=== PATIENT | male | born 1940 | race Caucasian/White ===

== ENCOUNTER → 2016-08-02 | Outpatient (CLI) | payer MEDICARE, BC ==
[~2016-08-02] MED LIST: AMLO10TA2 PO; ASPI-110 PO; ASPI81TA82 PO; BENEPOW5 PO; CETI10 PO; CETI1TAB18 PO; CHOL1TAB42 PO; CRANCAP10 PO; DONE5TAB14 PO; DONE5TAB7 PO; HYDR-2768 PO; HYDR25TA5 PO; IPRA0.03; IPRA0.03 NASAL; LEVO100T5 PO; LEVO125T3 PO; LEVO125T4 PO; LOSA50TA PO; MAGN500T4 PO; METF-324 PO; METF1000 PO; MIDO5TAB PO; MULT1TAB PO; MULTTAB83 PO; NAPR220T95 PO; NORV10TA PO; OXYC1TAB36 PO; PATA0.6S; PYRI100T PO; RESTCAP PO; ROSU10 PO; VITA100T2 PO; VITA200017 PO; VITA500T49 PO
[2016-08-02 13:42] LABS: AUTOMATED NEUTROPHIL # 4.3 TH/MM3 (1.8-7.7); BASOPHIL # 0.1 TH/MM3 (0-0.2); EOSINOPHIL # 0.1 TH/MM3 (0-0.4); HEMATOCRIT 36.5 % (39.0-51.0); HEMO FLAGS DIFF FINAL; LYMPH % 17.3 % (9.0-44.0); LYMPHOCYTE # 1.1 TH/MM3 (1.0-4.8); MEAN CORPUSCULAR HEMOGLOBIN 32.2 PG (27.0-34.0); MEAN CORPUSCULAR HGB CONC 33.5 % (32.0-36.0); MONO % 9.9 % (0.0-8.0); NEUT % 69.8 % (16.0-70.0); PLATELET COUNT 208 TH/MM3 (150-450); RED CELL DISTRIBUTION WIDTH 14.2 % (11.6-17.2); WHITE BLOOD COUNT 6.1 TH/MM3 (4.0-11.0)
[2016-08-02 14:06] LABS: ALKALINE PHOSPHATASE 56 U/L (45-117); ALT (GPT) 21 U/L (12-78); ANION GAP 11 MEQ/L (5-15); AST (GOT) 16 U/L (15-37); BICARBONATE 26.8 MEQ/L (21.0-32.0); BLOOD UREA NITROGEN 14 MG/DL (7-18); CHLORIDE 104 MEQ/L (98-107); GLOMERULAR FILTRATION RATE 59 ML/MIN (>89); GLUCOSE,FASTING 118 MG/DL (74-99); INDIRECT BILIRUBIN 0.4 MG/DL (0.0-0.8); LDL CHOLESTEROL 31 MG/DL (0-99); SODIUM (NA) 142 MEQ/L (136-145); TOTAL BILIRUBIN ADULT 0.6 MG/DL (0.2-1.0)
[2016-08-02 14:07] LABS: MICRO ALBUMIN RANDOM URINE RAW 15.1 MG/L (0.0-30.0)
[2016-08-02 16:32] LABS: HEMOGLOBIN A1a 1.2 %; HEMOGLOBIN A1b 1.7 %; HEMOGLOBIN Ao 83.8 %; HEMOGLOBIN LA1C 2.3 %
== END ==
LOC: PLAB 08:48
PROVIDERS: ATTEND Family Medicine
DX: I10 Essential (primary) hypertension (principal); E78.5 Hyperlipidemia, unspecified; E11.9 Type 2 diabetes mellitus without complications; R53.83 Other fatigue
CPT/HCPCS: 36415; 80048; 80061; 80076; 82043; 83036; 84443; 85025

== ENCOUNTER → 2016-08-08 | Outpatient (CLI) | payer MEDICARE, BC | LOC: PLAB 08:56 | PROVIDERS: ATTEND Family Medicine | DX: E03.9 Hypothyroidism, unspecified (principal) | CPT/HCPCS: 36415; 84443 ==

== ENCOUNTER → 2016-09-25 | Outpatient (CLI) | payer MEDICARE, BC ==
[2016-09-25 13:10] LABS: HEMATOCRIT 36.7 % (39.0-51.0); MEAN CELL VOLUME 94.4 FL (80.0-100.0); MEAN CORPUSCULAR HGB CONC 33.9 % (32.0-36.0); PLATELET COUNT 236 TH/MM3 (150-450); RED BLOOD COUNT 3.89 MIL/MM3 (4.50-5.90); RED CELL DISTRIBUTION WIDTH 13.4 % (11.6-17.2); REVIEW FLAG FINAL; WHITE BLOOD COUNT 6.2 TH/MM3 (4.0-11.0)
[2016-09-25 13:39] LABS: ALKALINE PHOSPHATASE 53 U/L (45-117); ALT (GPT) 24 U/L (12-78); ANION GAP 8 MEQ/L (5-15); AST (GOT) 25 U/L (15-37); BICARBONATE 30.8 MEQ/L (21.0-32.0); BLOOD UREA NITROGEN 20 MG/DL (7-18); CHLORIDE 103 MEQ/L (98-107); FREE T4 1.28 NG/DL (0.76-1.46); GLOMERULAR FILTRATION RATE 51 ML/MIN (>89); GLUCOSE,FASTING 111 MG/DL (74-99); POTASSIUM 3.8 MEQ/L (3.5-5.1); SODIUM (NA) 142 MEQ/L (136-145); TOTAL BILIRUBIN ADULT 0.6 MG/DL (0.2-1.0); TOTAL PROTEIN SPE 7.3 GM/DL (6.0-7.6)
[2016-09-25 13:40] LABS: WESTERGREN SEDIMENTATION RATE 8 mm/hr (0-20)
[2016-09-27 17:27] LABS: ALBUMIN SPE 4.93 GM/DL (3.50-5.00); ALPHA 1 GLOBULIN 0.22 GM/DL (0.11-0.29); ALPHA 2 GLOBULIN 0.83 GM/DL (0.22-1.00); BETA GLOBULINS (SPE) 0.64 GM/DL (0.53-1.03)
== END ==
LOC: PLAB 08:33
PROVIDERS: ATTEND Orthopaedic Surgery Orthopaedic Trauma
DX: M81.8 Other osteoporosis without current pathological fracture (principal); E55.9 Vitamin D deficiency, unspecified; E21.4 Other specified disorders of parathyroid gland; E07.9 Disorder of thyroid, unspecified; E83.30 Disorder of phosphorus metabolism, unspecified; E83.50 Unspecified disorder of calcium metabolism
CPT/HCPCS: 36415; 80053; 82306; 83970; 84165; 84402; 84403; 84439; 85027; 85652

== ENCOUNTER 2016-10-28 13:31 | Inpatient (IN) | payer MEDICARE, BC ==
[~2016-10-28] VITALS: Ht 180.3 cm; Wt 105.0 kg
[~2016-10-28 13:31] MED LIST changes: -AMLO10TA2 PO; -ASPI-110 PO; -CETI1TAB18 PO; -CHOL1TAB42 PO; -DONE5TAB7 PO; -HYDR25TA5 PO; -IPRA0.03 NASAL; -LEVO100T5 PO; -LEVO125T4 PO; -MAGN500T4 PO; -METF1000 PO; -MIDO5TAB PO; -MULT1TAB PO; -OXYC1TAB36 PO; -PYRI100T PO; -VITA100T2 PO; -VITA500T49 PO
[2016-10-28 13:41] VITALS: BP 106/61; PULSE 89; RESP 20; TEMP 98.2; O2SAT 93
--- NOTE | 2016-10-28 13:52 | PD ---
HPI Chief Complaint: Hip Injury Time Seen by Provider: 13:49 Travel History International Travel<30 days: No Contact w/Intl Traveler<30days: No Traveled to known affect area: No History of Present Illness HPI 76-year-old male presents to the emergency department via EMS for evaluation of right hip injury after a trip and fall that occurred just prior to arrival. Patient states he is walking in his house when he tripped landing on his right hip. He did hit his head, but denies LOC. Patient denies taking any anticoagulants. He denies any neck pain or back pain. No chest pain. No abdominal pain. No nausea or vomiting. He does have history of right hip fracture in 2013 and underwent repair by Dr. Silva. He states that he has had hip pain since, but nothing like since his fall. Patient had 6 mg of morphine prior to arrival. He denies any other complaints at this time. PFSH Past Medical History Hx Anticoagulant Therapy: Yes (BABY ASA DAILY) Arthritis: Yes Asthma: Yes Autoimmune Disease: No Anxiety: No Depression: No Heart Rhythm Problems: No Cancer: No Cardiovascular Problems: Yes (CHOL) High Cholesterol: Yes Chest Pain: No Congestive Heart Failure: No COPD: No Cerebrovascular Accident: No Dementia: Yes Diabetes: Yes Endocrine: Yes GERD: Yes Genitourinary: Yes Hiatal Hernia: Yes Hypertension: Yes Kidney Stones: No Musculoskeletal: Yes Neurologic: Yes Psychiatric: No Reproductive: No Respiratory: Yes Migraines: No Renal Failure: No Seizures: No Sleep Apnea: No Thyroid Disease: Yes Ulcer: Yes (WHEN YOUNGER) Past Surgical History Abdominal Surgery: Yes (HERNIA, GALLBLADDER) Cardiac Surgery: No Cholecystectomy: Yes Endocrine Surgery: No Eye Surgery: Yes (BILATERAL CATARACT) Genitourinary Surgery: Yes (VASECTOMY) Joint Replacement: No Oral Surgery: Yes (CLEFT LIP AND PALATE/NOSE) Pacemaker: No Thoracic Surgery: No Tonsillectomy: Yes Social History Alcohol Use: Yes (1/2-1 cup liqor most days) Tobacco Use: No Substance Use: No Allergies-Medications (Allergen,Severity, Reaction): Coded Allergies: Lipitor (Verified Allergy, Unknown, 02/13/16) Advair (Verified Adverse Reaction, Unknown, 02/13/16) Reported Meds & Prescriptions Reported Meds & Active Scripts Active Reported Vitamin B12 (Cyanocobalamin) 500 Mcg Tab 500 Mcg PO DAILY Vitamin B-6 (Pyridoxine HCl) 100 Mg Tab 100 Mg PO DAILY Zyrtec Allergy Childrens (Cetirizine HCl) 10 Mg Tab 10 Mg PO DAILY Magnesium 500 Mg Tab 500 Mg PO DAILY Vitamin D-3 (Cholecalciferol) 2,000 Unit Tab 1 Tab PO DAILY Centrum Silver Adult 50+ (Multiple Vitamins W/ Minerals) 1 Tab Tab 1 Tab PO DAILY Aspirin 81 (Aspirin) 81 Mg Tabdr 81 Mg PO DAILY Metformin (Metformin HCl) 1,000 Mg Tab 1,000 Mg PO BIDPC With meals Levothyroxine (Levothyroxine Sodium) 125 Mcg Tab 125 Mcg PO DAILY Ipratropium Nasal 0.03% [place] 2 [place] NASAL DAILY Hydrochlorothiazide 25 Mg Tab 25 Mg PO DAILY Donepezil 5 Mg Tab 7.5 Mg PO HS Crestor (Rosuvastatin Calcium) 10 Mg Tab 10 Mg PO DAILY Amlodipine (Amlodipine Besylate) 10 Mg Tab 10 Mg PO DAILY Review of Systems Except as stated in HPI: all other systems reviewed are Neg Physical Exam Narrative GENERAL: Well-nourished, well-developed elderly male patient, afebrile. SKIN: Focused skin assessment warm/dry. HEAD: Normocephalic. Atraumatic. EYES: No scleral icterus. No injection or drainage. NECK: Supple, trachea midline. No JVD or lymphadenopathy. CARDIOVASCULAR: Regular rate and rhythm without murmurs, gallops, or rubs. Bilateral radial and pedal pulses 2+. RESPIRATORY: Breath sounds equal bilaterally. No accessory muscle use. Lungs sounds are clear to auscultation. GASTROINTESTINAL: Abdomen soft, non-tender, nondistended. MUSCULOSKELETAL: No cyanosis, or edema. BACK: Nontender without obvious deformity. No CVA tenderness. Data Data Last Documented VS Vital Signs Date Time Temp Pulse Resp B/P Pulse Ox O2 Delivery O2 Flow Rate FiO2 10/28/16 15:45 82 18 129/70 95 Room Air 10/28/16 13:46 2 10/28/16 13:[address] Brain W/O Iv Contrast(Rout) (10/28/16 ) Hip, Uni(Ap&Lat) W Ap Pelvis (10/28/16 ) Iv Access Insert/Monitor (10/28/16 13:47) Complete Blood Count With Diff (10/28/16 13:47) Comprehensive Metabolic Panel (10/28/16 13:47) Prothrombin Time / Inr (Pt) (10/28/16 13:47) Act Partial Throm Time (Ptt) (10/28/16 13:47) Sodium Chlor 0.9% 1000 Ml Inj (Ns 1000 M (10/28/16 15:15) Ct Hip W/O Contrast (10/28/16 ) Femur (Ap & Lat/2vws) (10/28/16 ) Admit Order (Ed Use Only) (10/28/16 17:13) Labs Laboratory Tests Test 10/28/16 13:55 White Blood Count 11.6 TH/MM3 Red Blood Count 3.49 MIL/MM3 Hemoglobin 11.2 GM/DL Hematocrit 33.2 % Mean Corpuscular Volume 95.0 FL Mean Corpuscular Hemoglobin 32.2 PG Mean Corpuscular Hemoglobin 33.9 % Concent Red Cell Distribution Width 13.2 % Platelet Count 207 TH/MM3 Mean Platelet Volume 8.3 FL Neutrophils (%) (Auto) 84.4 % Lymphocytes (%) (Auto) 6.5 % Monocytes (%) (Auto) 7.9 % Eosinophils (%) (Auto) 0.6 % Basophils (%) (Auto) 0.6 % Neutrophils # (Auto) 9.8 TH/MM3 Lymphocytes # (Auto) 0.8 TH/MM3 Monocytes # (Auto) 0.9 TH/MM3 Eosinophils # (Auto) 0.1 TH/MM3 Basophils # (Auto) 0.1 TH/MM3 CBC Comment DIFF FINAL Differential Comment Prothrombin Time 11.2 SEC Prothromb Time International 1.0 RATIO Ratio Activated Partial 26.1 SEC Thromboplast Time Sodium Level 137 MEQ/L Potassium Level 4.2 MEQ/L Chloride Level 100 MEQ/L Carbon Dioxide Level 28.8 MEQ/L Anion Gap 8 MEQ/L Blood Urea Nitrogen 28 MG/DL Creatinine 1.93 MG/DL Estimat Glomerular Filtration 34 ML/MIN Rate Random Glucose 164 MG/DL Calcium Level 8.8 MG/DL Total Bilirubin 0.7 MG/DL Aspartate Amino Transf 28 U/L (AST/SGOT) Alanine Aminotransferase 34 U/L (ALT/SGPT) Alkaline Phosphatase 58 U/L Total Protein 6.6 GM/DL Albumin 3.6 GM/DL MDM Medical Decision Making Medical Screen Exam Complete: Yes Emergency Medical Condition: Yes Medical Record Reviewed: Yes Interpretation(s) Last Impressions Hip and Pelvis X-Ray 10/28/16 0000 Signed Impressions: Service Date/Time: Friday, October 28, 2016 14:31 - CONCLUSION: Slight osteopenia. Viri Kaur MD Head CT 10/28/16 0000 Signed Impressions: Service Date/Time: Friday, October 28, 2016 14:22 - CONCLUSION: Slight atrophic and small vessel ischemic changes without any evidence for acute hemorrhage or mass effect. Viri Kaur MD x-ray femur - CONCLUSION: No definite fracture is seen for technique. CT right hip - FINDINGS: Total hip arthroplasty is seen on the right appears intact with hypertrophic changes surrounding the femoral component. There is osteopenia with hairline fractures of the left symphysis pubis, right anterior acetabulum, right inferior pubic ramus. CONCLUSION: Hairline fractures as above. Differential Diagnosis Hip fracture versus dislocation versus contusion versus closed head injury versus intracranial abnormality Narrative Course 76-year-old male presents to the emergency department via EMS for evaluation of right hip pain after he tripped and fell. He states he also did hit his head, but denies LOC. IV access established. CBC, CMP, PTT, PTT/INR ordered and pending. X-ray of the right hip with pelvis is ordered and pending. CT of the brain is ordered and pending. CBC shows leukocytosis 11.6, hemoglobin 11.2, hematocrit 33.2. CMP shows elevated BUN and creatinine at 28/1.93, glucose 164. Coags are unremarkable. X -ray of the right hip with pelvis shows slight osteopenia. CT of the brain shows slight atrophic and small vessel ischemic changes without any evidence for acute hemorrhage or mass effect. Patient is given normal saline liter IV bolus. The nurse attempted to walk the patient, but he was unable to bear weight on the right leg due to hip pain. X-ray of the right femur is added on as well CT of the right hip. X-ray right femur shows no definite fracture seen. CT of the hip shows osteopenia with hairline fractures of the left symphysis pubis, right anterior acetabulum, right inferior pubic ramus. Orthopedist neon sign erector is paged. I spoke to Dr. Villegas who states that this is a progressive weightbearing as tolerated, nonsurgical issue. He states that he will be painful for a couple of weeks. I discussed this with the patient. The patient will be tried to walk one more time. The patient is unable to even swinging his leg over the side of the bed, much less walk. [facility] is paged for admission. Dr. Christensen accepted admission. Diagnosis Primary Impression: Pelvis fracture, right Qualified Code: S32.9XXA - Pelvis fracture, right, closed, initial encounter Admitting Information Admitting Physician Requests: Observation Yoana Myrick Oct 28, 2016 13:52
[2016-10-28] MEDS ORDERED: METF1000 PO (13:57)
[2016-10-28] MEDS ORDERED: LEVO125T4 PO (13:57)
[2016-10-28] MEDS ORDERED: ASPI-110 PO (13:57)
[2016-10-28] MEDS ORDERED: DONE5TAB7 PO (13:57)
[2016-10-28] MEDS ORDERED: IPRA0.03 NASAL (13:57)
[2016-10-28] MEDS ORDERED: AMLO10TA2 PO (13:57)
[2016-10-28] MEDS ORDERED: ROSU10 PO (13:57)
[2016-10-28] MEDS ORDERED: HYDR25TA5 PO (13:57)
[2016-10-28] MEDS ORDERED: VITA500T49 PO (13:58)
[2016-10-28] MEDS ORDERED: MULT1TAB PO (13:58)
[2016-10-28] MEDS ORDERED: CETI1TAB18 PO (13:58)
[2016-10-28] MEDS ORDERED: PYRI100T PO (13:58)
[2016-10-28] MEDS ORDERED: MAGN500T4 PO (13:58)
[2016-10-28] MEDS ORDERED: CHOL1TAB42 PO (13:58)
[2016-10-28 14:17] LABS: AUTOMATED NEUTROPHIL # 9.8 TH/MM3 (1.8-7.7); BASOPHIL # 0.1 TH/MM3 (0-0.2); BASOPHIL % 0.6 % (0.0-2.0); EOSINOPHIL # 0.1 TH/MM3 (0-0.4); EOSINOPHIL % 0.6 % (0.0-4.0); HEMATOCRIT 33.2 % (39.0-51.0); HEMO FLAGS DIFF FINAL; LYMPH % 6.5 % (9.0-44.0); LYMPHOCYTE # 0.8 TH/MM3 (1.0-4.8); MEAN CORPUSCULAR HEMOGLOBIN 32.2 PG (27.0-34.0); MEAN CORPUSCULAR HGB CONC 33.9 % (32.0-36.0); MONO % 7.9 % (0.0-8.0); NEUT % 84.4 % (16.0-70.0); PLATELET COUNT 207 TH/MM3 (150-450); RED BLOOD COUNT 3.49 MIL/MM3 (4.50-5.90); RED CELL DISTRIBUTION WIDTH 13.2 % (11.6-17.2); WHITE BLOOD COUNT 11.6 TH/MM3 (4.0-11.0)
[2016-10-28 14:35] LABS: ANION GAP 8 MEQ/L (5-15); AST (GOT) 28 U/L (15-37); BICARBONATE 28.8 MEQ/L (21.0-32.0); BLOOD UREA NITROGEN 28 MG/DL (7-18); CHLORIDE 100 MEQ/L (98-107); GLOMERULAR FILTRATION RATE 34 ML/MIN (>89); POTASSIUM 4.2 MEQ/L (3.5-5.1); SODIUM (NA) 137 MEQ/L (136-145)
[2016-10-28 14:38] LABS: ALKALINE PHOSPHATASE 58 U/L (45-117); ALT (GPT) 34 U/L (12-78); TOTAL BILIRUBIN ADULT 0.7 MG/DL (0.2-1.0)
[2016-10-28 14:47] LABS: APTT (PATIENT) 26.1 SEC (24.3-30.1); PROTHROMBIN TIME - PATIENT 11.2 SEC (9.8-11.6)
--- NOTE | 2016-10-28 15:00 | RADRPT ---
EXAM DATE/TIME: 10/28/2016 14:22 [facility] COMPARISON: No previous studies available for comparison. INDICATIONS : Fall today, trauma to head. RADIATION DOSE: 41.27 CTDIvol (mGy) MEDICAL HISTORY : Dementia. Hypertension. diabetes SURGICAL HISTORY : Cholecystectomy. ENCOUNTER: Initial ACUITY: 1 day PAIN SCALE: 2/10 LOCATION: Bilateral head TECHNIQUE: Multiple contiguous axial images were obtained of the head. Using automated exposure control and adj ustment of the mA and/or kV according to patient size, radiation dose was kept as low as reasonably a chievable to obtain optimal diagnostic quality images. FINDINGS: There is no evidence for intracranial hemorrhage, mass effect, mass lesions, or edema. The visualize d bony structures appear intact. Slight degree of brain atrophy is seen. Slight periventricular whit e matter changes are seen nonspecific mostly consistent with chronic small vessel ischemic changes. There are no signs of acute infarction for technique. CONCLUSION: Slight atrophic and small vessel ischemic changes without any evidence for acute hemorrhage or mass effect. Viri Kaur MD on October 28, 2016 at 14:57 Board Certified Radiologist. This report was verified electronically.
--- NOTE | 2016-10-28 15:09 | RADRPT ---
EXAM DATE/TIME: 10/28/2016 14:31 [facility] COMPARISON: PELVIS AP ONLY, January 31, 2014, 10:39. INDICATIONS : Posterior right hip pain after falling. MEDICAL HISTORY : None. SURGICAL HISTORY : Total hip replacement, right. ENCOUNTER: Initial ACUITY: 1 day PAIN SCORE: 10/10 LOCATION: Right hip FINDINGS: Total hip arthroplasty is in place on the right side. The femoral and acetabular components appear i ntact. There are no signs of loosening or fracture. No definite fractures, or dislocations are ident ified. No definite lytic or sclerotic lesion is seen. Slight osteopenia is seen. CONCLUSION: Slight osteopenia. Viri Kaur MD on October 28, 2016 at 15:06 Board Certified Radiologist. This report was verified electronically.
[2016-10-28] MEDS ORDERED: SODIUM CHLOR 0.9% 1000 ML INJ 1,000 ML IV ONE (15:15)
[2016-10-28 15:45] VITALS: BP 129/70; PULSE 82; RESP 18; O2SAT 95
--- NOTE | 2016-10-28 16:13 | RADRPT ---
EXAM DATE/TIME: 10/28/2016 15:47 [facility] COMPARISON: No previous studies available for comparison. INDICATIONS : Right femur pain, fell MEDICAL HISTORY : None. SURGICAL HISTORY : Total hip replacement, right. ENCOUNTER: Initial ACUITY: 1 day PAIN SCORE: 10/10 LOCATION: Right Hip FINDINGS: Total hip arthroplasty is in place. The femoral and acetabular components appear intact. There are no signs of loosening or fracture. Bony structures osteopenic and there is a line overlapping the pro ximal fibula on the lateral projection which is probably related to a skinfold extending out to the c ortex of the bone. CONCLUSION: No definite fracture is seen for technique. Viri Kaur MD on October 28, 2016 at 16:10 Board Certified Radiologist. This report was verified electronically.
--- NOTE | 2016-10-28 16:44 | RADRPT ---
EXAM DATE/TIME: 10/28/2016 15:56 [facility] COMPARISON: No previous studies available for comparison. INDICATIONS : Trauma; fall. RADIATION DOSE: 21.78 CTDIvol (mGy) MEDICAL HISTORY : None SURGICAL HISTORY : Right hip replacement. ENCOUNTER: Initial ACUITY: 1 day PAIN SCALE: 4/10 LOCATION: Right hip. TECHNIQUE: Volumetric scanning of the hip was performed. Using automated exposure control and adjustment of the mA and/or kV according to patient size, radiation dose was kept as low as reasonably achievable to o btain optimal diagnostic quality images. FINDINGS: Total hip arthroplasty is seen on the right appears intact with hypertrophic changes surrounding the femoral component. There is osteopenia with hairline fractures of the left symphysis pubis, righ t anterior acetabulum, right inferior pubic ramus. CONCLUSION: Hairline fractures as above. Viri Kaur MD on October 28, 2016 at 16:36 Board Certified Radiologist. This report was verified electronically.
[2016-10-28] MEDS ORDERED: oxyCODONE/ACETAMINOPHEN 5 MG/325 MG TAB PO PRN (17:30)
[2016-10-28] MEDS ORDERED: oxyCODONE/ACETAMINOPHEN 10 MG/325 MG TAB PO PRN (17:30)
[2016-10-28] MEDS ORDERED: MORPHINE SULFATE 4 MG/ML INJ IV PUSH PRN (17:30)
[2016-10-28] MEDS ORDERED: ACETAMINOPHEN 325 MG TAB PO PRN (17:45)
[2016-10-28] MEDS ORDERED: LORazepam 2 MG TAB PO PRN (17:45)
[2016-10-28] MEDS ORDERED: LORazepam 2 MG/ML VIAL IV PUSH PRN ×4 (17:45)
[2016-10-28] MEDS ORDERED: MAGNESIUM HYDROXIDE SUSP 30 ML CUP PO PRN (17:45)
[2016-10-28] MEDS ORDERED: SODIUM CHLORIDE 0.9% FLUSH 10 ML FLUSH IV FLUSH PRN (17:45)
[2016-10-28] MEDS ORDERED: LORazepam 1 MG TAB PO PRN (17:45)
[2016-10-28] MEDS ORDERED: DEXTROSE 50% IN WATER 50 ML VIAL(D50) IV PUSH PRN (17:45)
[2016-10-28] MEDS ORDERED: FLUMAZENIL 0.5 MG/5 ML VIAL IV PUSH PRN (17:45)
[2016-10-28] MEDS ORDERED: NALOXONE HCL 0.4 MG/ML AMP IV PRN (17:45)
[2016-10-28] MEDS ORDERED: GLUCAGON 1 MG/ML VIAL OTHER PRN (17:45)
[2016-10-28] MEDS ORDERED: ONDANSETRON HCL 4 MG/2 ML VIAL IVP PRN (17:45)
[2016-10-28] MEDS ORDERED: metFORMIN HCL 500 MG TAB PO SCH (18:00)
[2016-10-28] MEDS ORDERED: RESP: ALBUTEROL 2.5 MG/IPRATROPIUM 0.5 MG NEB (PRN) NEB (18:00)
--- NOTE | 2016-10-28 18:23 | HHI.HP ---
HPI Service [facility] Hospitalists Primary Care Physician Raul Blair MD Admission Diagnosis hairline pelvic fracture; inability to bear weight Diagnoses: Chief Complaint: Right hip pain s/p fall Travel History International Travel<30 Days: No Contact w/Intl Traveler <30 Da: No Traveled to Known Affected Are: No History of Present Illness This is 76-year-old male with a past medical history significant for dementia, diabetes, hypertension, hypothyroidism, asthma, dyslipidemia, GERD and previous right femoral neck fracture s/p bipolar hip replacement 02/01/2014 who presents to [facility] with complaints of right hip pain status post fall earlier today. Patient reports he was walking his home when he tripped landing on the right hip and began to experience immediate pain. X-ray of the right hip obtained in the ED showed no definite fracture and evidence of the previous hip arthroplasty which appeared to be in place. CT was also obtained which revealed hairline fractures of the left symphysis pubis, right anterior acetabulum and right inferior pubic ramus. ED physician spoke with the orthopedic surgeon who stated the fractures are nonoperative. Per the ED note, patient also reports hitting his head however he denies any loss of consciousness and a CT of the head obtained revealed slightly atrophic and small vessel ischemic changes without any evidence for acute hemorrhage or mass effect. Patient states his pain level is currently 7/10. Review of Systems Except as stated in HPI: all other systems reviewed are Neg Past Family Social History Past Medical History Hypertension Dementia Diabetes mellitus, type II GERD Hypothyroidism Asthma, intermittent Dyslipidemia Seasonal allergic rhinitis Chronic low back pain Past Surgical History Right bipolar hip replacement 2013 Cholecystectomy Left hernia surgery Cataract surgery Vasectomy Palate repair as a child Reported Medications Vitamin B12 (Cyanocobalamin) 500 Mcg Tab 500 Mcg PO DAILY Vitamin B-6 (Pyridoxine HCl) 100 Mg Tab 100 Mg PO DAILY Zyrtec Allergy Childrens (Cetirizine HCl) 10 Mg Tab 10 Mg PO DAILY Magnesium 500 Mg Tab 500 Mg PO DAILY Vitamin D-3 (Cholecalciferol) 2,000 Unit Tab 1 Tab PO DAILY Centrum Silver Adult 50+ (Multiple Vitamins W/ Minerals) 1 Tab Tab 1 Tab PO DAILY Aspirin 81 (Aspirin) 81 Mg Tabdr 81 Mg PO DAILY Metformin (Metformin HCl) 1,000 Mg Tab 1,000 Mg PO BIDPC With meals Levothyroxine (Levothyroxine Sodium) 125 Mcg Tab 125 Mcg PO DAILY Ipratropium Nasal 0.03% [place] 2 [place] NASAL DAILY Hydrochlorothiazide 25 Mg Tab 25 Mg PO DAILY Donepezil 5 Mg Tab 7.5 Mg PO HS Crestor (Rosuvastatin Calcium) 10 Mg Tab 10 Mg PO DAILY Amlodipine (Amlodipine Besylate) 10 Mg Tab 10 Mg PO DAILY Allergies: Coded Allergies: Lipitor (Verified Allergy, Unknown, 02/13/16) Advair (Verified Adverse Reaction, Unknown, 02/13/16) Active Ordered Medications Current Medications Medications (Trade) Dose Ordered Sig/Cj Route Start Time Stop Time Status Last Admin (Percocet 5-325 Mg) 1 tab Q4H PRN PO 10/28/16 17:30 (Percocet 10-325 Mg) 1 tab Q4H PRN PO 10/28/16 17:30 (Morphine Inj) 4 mg Q4H PRN IV PUSH 10/28/16 17:30 (Heparin Inj) 5,000 units Q8HR SQ 10/28/16 22:00 (NS Flush) 2 ml UNSCH PRN IV FLUSH 10/28/16 17:45 UNV (NS Flush) 2 ml BID IV FLUSH 10/28/16 21:00 UNV (Tylenol) 650 mg Q4H PRN PO 10/28/16 17:45 UNV (Zofran Inj) 4 mg Q6H PRN IVP 10/28/16 17:45 UNV (Colace) 100 mg Q12H PO 10/28/16 17:45 UNV (Milk Of Magnesia Liq) 30 ml Q12H PRN PO 10/28/16 17:45 UNV (Narcan Inj) 0.4 mg UNSCH PRN IV 10/28/16 17:45 UNV (Romazicon Inj) 0.2 mg Q1M PRN IV PUSH 10/28/16 17:45 UNV (Ativan) 1 mg Q4H PRN PO 10/28/16 17:45 UNV (Ativan Inj) 1 mg Q4H PRN IV PUSH 10/28/16 17:45 UNV (Ativan) 2 mg Q2H PRN PO 10/28/16 17:45 UNV (Ativan Inj) 2 mg Q2H PRN IV PUSH 10/28/16 17:45 UNV (Ativan Inj) 2 mg Q1H PRN IV PUSH 10/28/16 17:45 UNV (Ativan Inj) 2 mg Q15M PRN IV PUSH 10/28/16 17:45 UNV (D50w (Vial) Inj) 25 ml UNSCH PRN IV PUSH 10/28/16 17:45 UNV (Glucagon Inj) 1 mg UNSCH PRN OTHER 10/28/16 17:45 UNV (Vitamin B1) 100 mg DAILY PO 10/28/16 17:45 UNV Folic Acid 1 mg 1 mg DAILY PO 10/28/16 17:45 UNV (NS 1000 ml Inj) 1,000 ml @ 75 mls/hr [id number] IV 10/28/16 17:45 10/29/16 20:24 UNV Family History Father, cancer Mother, CVA Social History Patient lives with his . He reports a remote history of tobacco use having quit at the age of 16. However, review of the medical record reports history of smoking up until 1993. He admits to drinking whiskey daily. He denies any illicit drug use. Physical Exam Vital Signs Vital Signs Date Time Temp Pulse Resp B/P Pulse Ox O2 Delivery O2 Flow Rate FiO2 10/28/16 15:45 82 18 129/70 95 Room Air 10/28/16 13:46 99 Nasal Cannula 2 10/28/16 13:41 98.2 89 20 106/61 93 Physical Exam GENERAL: This is a well-nourished, well-developed patient, in no apparent distress. Awake and alert. SKIN: No rashes, ecchymoses or lesions. Cool and dry. HEAD: Atraumatic. Normocephalic. No temporal or scalp tenderness. EYES: Pupils equal round and reactive. Extraocular motions intact. No scleral icterus. No injection or drainage. ENT: Nose without bleeding, purulent drainage or septal hematoma. Throat without erythema, tonsillar hypertrophy or exudate. Uvula midline. Airway patent. NECK: Trachea midline. No lymphadenopathy. Supple, nontender, no meningeal signs. CARDIOVASCULAR: Regular rate and rhythm without gallops, or rubs. (+)2/6 systolic murmur appreciated. RESPIRATORY: Clear to auscultation. Breath sounds diminished bilaterally. No wheezes, rales, or rhonchi. GASTROINTESTINAL: Abdomen soft, non-tender, nondistended. No hepato-splenomegaly , or palpable masses. No guarding. MUSCULOSKELETAL: Extremities without clubbing, cyanosis, or edema. (+) tenderness over right hip. No effusion or edema noted. No calf tenderness. NEUROLOGICAL: Awake and alert. Decreased range of motion right lower extremity. No focal neurologic findings. Normal speech. Laboratory Laboratory Tests Test 10/28/16 13:55 White Blood Count 11.6 Red Blood Count 3.49 Hemoglobin 11.2 Hematocrit 33.2 Mean Corpuscular Volume 95.0 Mean Corpuscular Hemoglobin 32.2 Mean Corpuscular Hemoglobin 33.9 Concent Red Cell Distribution Width 13.2 Platelet Count 207 Mean Platelet Volume 8.3 Neutrophils (%) (Auto) 84.4 Lymphocytes (%) (Auto) 6.5 Monocytes (%) (Auto) 7.9 Eosinophils (%) (Auto) 0.6 Basophils (%) (Auto) 0.6 Neutrophils # (Auto) 9.8 Lymphocytes # (Auto) 0.8 Monocytes # (Auto) 0.9 Eosinophils # (Auto) 0.1 Basophils # (Auto) 0.1 CBC Comment DIFF FINAL Differential Comment Prothrombin Time 11.2 Prothromb Time International 1.0 Ratio Activated Partial 26.1 Thromboplast Time Sodium Level 137 Potassium Level 4.2 Chloride Level 100 Carbon Dioxide Level 28.8 Anion Gap 8 Blood Urea Nitrogen 28 Creatinine 1.93 Estimat Glomerular Filtration 34 Rate Random Glucose 164 Calcium Level 8.8 Total Bilirubin 0.7 Aspartate Amino Transf 28 (AST/SGOT) Alanine Aminotransferase 34 (ALT/SGPT) Alkaline Phosphatase 58 Total Protein 6.6 Albumin 3.6 Result Diagram: 10/28/16 1355 10/28/16 1355 Imaging Last 48 hours Impressions Lower Extremity CT 10/28/16 0000 Signed Impressions: Service Date/Time: Friday, October 28, 2016 15:56 - CONCLUSION: Hairline fractures as above. Viri Kaur MD Hip and Pelvis X-Ray 10/28/16 0000 Signed Impressions: Service Date/Time: Friday, October 28, 2016 14:31 - CONCLUSION: Slight osteopenia. Viri Kaur MD Head CT 10/28/16 0000 Signed Impressions: Service Date/Time: Friday, October 28, 2016 14:22 - CONCLUSION: Slight atrophic and small vessel ischemic changes without any evidence for acute hemorrhage or mass effect. Viri Kaur MD Femur X-Ray 10/28/16 0000 Signed Impressions: Service Date/Time: Friday, October 28, 2016 15:47 - CONCLUSION: No definite fracture is seen for technique. Viri Kaur MD Assessment and Plan Assessment and Plan 76-year-old male with a past medical history significant for dementia, diabetes , hypertension, hypothyroidism, asthma, dyslipidemia, GERD and previous right femoral neck fracture s/p bipolar hip replacement 02/01/2014 who presents to [facility] with complaints of right hip pain status post fall earlier today. //Hairline fractures of the left symphysis pubis, right anterior acetabulum and right inferior pubic ramus in a patient with a previous right bipolar hip replacement Admit to observation Right hip xray personally interpreted - previous right bipolar hip replacement, possible hairline fracture right acetabulum CT right hip shows right total hip arthroplasty with hypertrophic changes starting the femoral component, osteopenia with hairline fractures and left symphysis pubis, right anterior acetabulum and right inferior pubic ramus. ED physician discussed with Orthopedic surgeon who stated fractures are nonoperative. Pain management PT/OT eval/treatment - WBAT //Dementia Resume home Donepezil //HTN Good control presently Resume home medications except for HCTZ Monitor BP //DM Hold home Metformin obtain A1c level accucheck ISS //JOEL creatinine 1.93 hold home HCTZ gentle IVF Avoid nephrotoxic agents am labs to monitor trend //History of asthma Duonebs prn supplemental oxygen //Anemia Mild am labs to monitor //Leukocytosis Mild patient is afebrile, HR 82 UA ordered am labs to monitor //Osteopenia Obtain vitamin D level //Daily EtOH use Thiamine and folate daily Watch for signs of alcohol withdrawal CIWA protocol //Hypothyroidism Resume home levothyroxine Obtain TSH level //Dyslipidemia Resume home Crestor dose //DVT prophylaxis Heparin sq Written by Briana Charlton PA-C acting as scribe for Dr. Christensen on 10/28/16 at 17:52. Discussed Condition With patient, nursing staff, ED physician Briana Charlton Oct 28, 2016 18:23 Steven Christensen MD Oct 28, 2016 18:41
[2016-10-28 18:35] LABS: MAGNESIUM 2.1 MG/DL (1.5-2.5)
[2016-10-28 19:23] VITALS: BP 123/61; PULSE 77; RESP 20; TEMP 98.6; O2SAT 99
[2016-10-28] MEDS: INSULIN ASPART SUPPLEMENTAL SCALE SQ SCH (21:00)
[2016-10-28] MEDS: FOLIC ACID 1 MG TAB PO SCH (21:05)
[2016-10-28] MEDS: SODIUM CHLOR 0.9% 1000 ML INJ 1,000 ML IV SCH (21:05)
[2016-10-28] MEDS: THIAMINE HCL 100 MG TAB PO SCH (21:05)
[2016-10-28] MEDS: DONEPEZIL HCL 5 MG TAB PO SCH (21:05)
[2016-10-28] MEDS: SODIUM CHLORIDE 0.9% FLUSH 10 ML FLUSH IV FLUSH SCH (21:05)
[2016-10-28] MEDS: DOCUSATE SODIUM 100 MG CAP PO SCH (21:05)
[2016-10-28] MEDS: HEPARIN SODIUM - SQ 10,000 UNITS/ML VIAL SQ SCH (21:06)
[2016-10-28 21:24] VITALS: O2SAT 98
[2016-10-29] VITALS (7 sets, daily range): BP systolic 122–143; BP diastolic 60–70; PULSE 69–82; RESP 17–21; TEMP 97.4–98.9; O2SAT 93–97
[2016-10-29 06:06] LABS: AUTOMATED NEUTROPHIL # 4.3 TH/MM3 (1.8-7.7); BASOPHIL # 0.1 TH/MM3 (0-0.2); EOSINOPHIL # 0.2 TH/MM3 (0-0.4); EOSINOPHIL % 3.3 % (0.0-4.0); HEMATOCRIT 30.9 % (39.0-51.0); HEMO FLAGS DIFF FINAL; LYMPH % 12.9 % (9.0-44.0); LYMPHOCYTE # 0.8 TH/MM3 (1.0-4.8); MEAN CELL VOLUME 96.4 FL (80.0-100.0); MEAN CORPUSCULAR HEMOGLOBIN 32.4 PG (27.0-34.0); MEAN CORPUSCULAR HGB CONC 33.6 % (32.0-36.0); MONO % 10.3 % (0.0-8.0); NEUT % 72.5 % (16.0-70.0); PLATELET COUNT 152 TH/MM3 (150-450); RED BLOOD COUNT 3.21 MIL/MM3 (4.50-5.90); RED CELL DISTRIBUTION WIDTH 13.3 % (11.6-17.2); WHITE BLOOD COUNT 5.9 TH/MM3 (4.0-11.0)
[2016-10-29 06:17] LABS: ANION GAP 8 MEQ/L (5-15); BICARBONATE 28.9 MEQ/L (21.0-32.0); BLOOD UREA NITROGEN 21 MG/DL (7-18); CHLORIDE 102 MEQ/L (98-107); GLOMERULAR FILTRATION RATE 64 ML/MIN (>89); POTASSIUM 3.7 MEQ/L (3.5-5.1); SODIUM (NA) 139 MEQ/L (136-145)
[2016-10-29] MEDS: INSULIN ASPART SUPPLEMENTAL SCALE SQ SCH ×4 (07:00→21:00)
[2016-10-29] MEDS: DOCUSATE SODIUM 100 MG CAP PO SCH ×2 (07:47→17:23)
[2016-10-29] MEDS: HEPARIN SODIUM - SQ 10,000 UNITS/ML VIAL SQ SCH ×3 (07:48→21:59)
[2016-10-29] MEDS: CYANOCOBALAMIN 100 MCG TAB PO SCH (08:26)
[2016-10-29] MEDS: PYRIDOXINE HCL 50 MG TAB PO SCH (08:28)
[2016-10-29] MEDS: CETIRIZINE HCL 10 MG TAB PO SCH (08:29)
[2016-10-29] MEDS: MAGNESIUM OXIDE 400 MG TAB PO SCH (08:29)
[2016-10-29] MEDS: CHOLECALCIFEROL (VIT D3) 1000 UNIT TAB PO SCH (08:29)
[2016-10-29] MEDS: MULTIVITAMINS/MINERALS THERAPEUTIC TAB PO SCH (08:29)
[2016-10-29] MEDS: ASPIRIN EC 81 MG TABEC PO SCH (08:29)
[2016-10-29] MEDS: LEVOTHYROXINE SODIUM 125 MCG TAB PO SCH (08:29)
[2016-10-29] MEDS: THIAMINE HCL 100 MG TAB PO SCH (08:29)
[2016-10-29] MEDS: FOLIC ACID 1 MG TAB PO SCH (08:29)
[2016-10-29] MEDS: SODIUM CHLORIDE 0.9% FLUSH 10 ML FLUSH IV FLUSH SCH ×2 (08:30→20:41)
[2016-10-29] MEDS: SODIUM CHLOR 0.9% 1000 ML INJ 1,000 ML IV SCH (08:30)
[2016-10-29 08:42] LABS: BACTERIA, URINE FEW /hpf; BLOOD, URINE NEG (NEG); COMMENT (UR) CULT NOT INDICATED; CULTURE IF INDICATED CULT NOT INDICATED; GLUCOSE,URINE NEG (NEG); HYALINE CAST, URINE 1 /lpf (RARE); KETONE, URINE TRACE mg/dL (NEG); MUCUS URINE FEW /lpf (OCC); NITRITE,URINE NEG (NEG); PH, URINE 5.5 (5.0-8.5); SQUAMOUS EPITHELIAL CELL URINE <1 /hpf (0-5); URINE COLOR YELLOW (YELLW/STRAW)
[2016-10-29] MEDS ORDERED: CRESTOR 10 MG PO SCH (09:00)
[2016-10-29 11:06] LABS: HEMOGLOBIN A1a 1.3 %; HEMOGLOBIN A1b 1.8 %; HEMOGLOBIN LA1C 2.4 %; HEMOGLOBIN P3 4.3 %
[2016-10-29] MEDS ORDERED: VITA100T2 PO (13:20)
--- NOTE | 2016-10-29 15:18 | HHI.PR ---
Subjective Remarks Stable no acute issue, PT recommended rehabilitation patient is immobile at this point with nonsurgical hip fracture Discussed with correctional case records supervisor patient will need 3 nights until going to rehabilitation Objective Vitals Vital Signs Date Time Temp Pulse Resp B/P Pulse Ox O2 Delivery O2 Flow Rate FiO2 10/29/16 12:00 98.9 80 18 138/66 93 10/29/16 08:20 93 21 10/29/16 07:59 98.0 71 20 129/67 97 10/29/16 00:46 98.0 69 21 122/61 97 10/28/16 21:24 98 Nasal Cannula 2.00 10/28/16 19:23 98.6 77 20 123/61 99 10/28/16 15:45 82 18 129/70 95 Room Air I/O 10/28/16 10/28/16 10/28/16 10/29/16 10/29/16 10/29/16 07:00 15:00 23:00 07:00 15:00 23:00 Intake Total 1029 ml Balance 1029 ml IV Total 1029 ml Result Diagram: 10/29/1630 10/29/16 0530 Objective Remarks GENERAL: This is a well-nourished, well-developed patient, in no apparent distress. Awake and alert. SKIN: No rashes, ecchymoses or lesions. Cool and dry. HEAD: Atraumatic. Normocephalic. No temporal or scalp tenderness. EYES: Pupils equal round and reactive. Extraocular motions intact. No scleral icterus. No injection or drainage. ENT: Nose without bleeding, purulent drainage or septal hematoma. Throat without erythema, tonsillar hypertrophy or exudate. Uvula midline. Airway patent. NECK: Trachea midline. No lymphadenopathy. Supple, nontender, no meningeal signs. CARDIOVASCULAR: Regular rate and rhythm without gallops, or rubs. (+)2/6 systolic murmur appreciated. RESPIRATORY: Clear to auscultation. Breath sounds diminished bilaterally. No wheezes, rales, or rhonchi. GASTROINTESTINAL: Abdomen soft, non-tender, nondistended. No hepato-splenomegaly , or palpable masses. No guarding. MUSCULOSKELETAL: Extremities without clubbing, cyanosis, or edema. (+) tenderness over right hip. No effusion or edema noted. No calf tenderness. NEUROLOGICAL: Awake and alert. Decreased range of motion right lower extremity. No focal neurologic findings. Normal speech. 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 //Hairline fractures of the left symphysis pubis, right anterior acetabulum and right inferior pubic ramus in a patient with a previous right bipolar hip replacement Admit to inpatient, discussed with correctional case records supervisor Right hip xray personally interpreted - previous right bipolar hip replacement, possible hairline fracture right acetabulum CT right hip shows right total hip arthroplasty with hypertrophic changes starting the femoral component, osteopenia with hairline fractures and left symphysis pubis, right anterior acetabulum and right inferior pubic ramus. ED physician discussed with Orthopedic surgeon who stated fractures are nonoperative. Pain management PT/OT eval/treatment - WBAT>> recommend rehabilitation at discharge //Dementia Resume home Donepezil //HTN Good control presently Resume home medications except for HCTZ Monitor BP //DM Hold home Metformin obtain A1c level accucheck ISS //JOEL creatinine 1.93 hold home HCTZ gentle IVF Avoid nephrotoxic agents Monitor lab //History of asthma Duonebs prn supplemental oxygen //Anemia Mild am labs to monitor //Leukocytosis Mild patient is afebrile, HR 82 UA ordered am labs to monitor //Osteopenia Obtain vitamin D level //Daily EtOH use Thiamine and folate daily Watch for signs of alcohol withdrawal CIWA protocol //Hypothyroidism Resume home levothyroxine Obtain TSH level //Dyslipidemia Resume home Crestor dose //DVT prophylaxis Heparin sq Steven Christensen MD October 29, 2016 15:18
[2016-10-29] MEDS: DONEPEZIL HCL 5 MG TAB PO SCH (20:41)
[2016-10-30] VITALS (7 sets, daily range): BP systolic 130–187; BP diastolic 66–80; PULSE 70–89; RESP 17–18; TEMP 96.7–97.6; O2SAT 94–99
[2016-10-30] MEDS: DOCUSATE SODIUM 100 MG CAP PO SCH ×2 (05:45→16:39)
[2016-10-30] MEDS: HEPARIN SODIUM - SQ 10,000 UNITS/ML VIAL SQ SCH ×3 (06:00→22:01)
[2016-10-30] MEDS: INSULIN ASPART SUPPLEMENTAL SCALE SQ SCH ×4 (06:28→20:07)
[2016-10-30] MEDS: MULTIVITAMINS/MINERALS THERAPEUTIC TAB PO SCH (08:52)
[2016-10-30] MEDS: CYANOCOBALAMIN 100 MCG TAB PO SCH (08:53)
[2016-10-30] MEDS: LEVOTHYROXINE SODIUM 125 MCG TAB PO SCH (08:54)
[2016-10-30] MEDS: PYRIDOXINE HCL 50 MG TAB PO SCH (08:54)
[2016-10-30] MEDS: MAGNESIUM OXIDE 400 MG TAB PO SCH (08:54)
[2016-10-30] MEDS: FOLIC ACID 1 MG TAB PO SCH (08:54)
[2016-10-30] MEDS: CETIRIZINE HCL 10 MG TAB PO SCH (08:55)
[2016-10-30] MEDS: ASPIRIN EC 81 MG TABEC PO SCH (08:56)
[2016-10-30] MEDS: CHOLECALCIFEROL (VIT D3) 1000 UNIT TAB PO SCH (08:56)
[2016-10-30] MEDS: THIAMINE HCL 100 MG TAB PO SCH (08:56)
[2016-10-30] MEDS: SODIUM CHLORIDE 0.9% FLUSH 10 ML FLUSH IV FLUSH SCH ×2 (08:57→20:31)
[2016-10-30] MEDS ORDERED: PNEUMOCOCCAL POLYVALENT INJ 25 MCG/0.5 ML SYR IM ONE (10:00)
--- NOTE | 2016-10-30 12:38 | HHI.PR ---
Subjective Remarks Patient resting in bed comfortably no acute issue, placement to rehabilitation in process Objective Vitals Vital Signs Date Time Temp Pulse Resp B/P Pulse Ox O2 Delivery O2 Flow Rate FiO2 10/30/16 11:39 96.9 79 18 133/72 95 10/30/16 07:39 97.4 70 18 187/80 96 10/30/16 04:00 97.0 76 17 139/67 95 10/30/16 01:18 Room Air 10/30/16 00:00 97.6 74 18 130/71 97 10/29/16 22:12 93 21 10/29/16 20:00 97.4 78 17 133/60 94 10/29/16 15:50 98.0 82 19 143/70 93 I/O 10/29/16 10/29/16 10/29/16 10/30/16 10/30/16 10/30/16 07:00 15:00 23:00 07:00 15:00 23:00 Intake Total 1029 ml 332 ml 475 ml Balance 1029 ml 332 ml 475 ml Intake Oral 240 ml 0 ml IV Total 1029 ml 92 ml 475 ml # Voids 2 # Bowel Movements 0 Result Diagram: 10/29/16 0530 10/29/16 0530 Objective Remarks GENERAL: This is a well-nourished, well-developed patient, in no apparent distress. Awake and alert. SKIN: No rashes, ecchymoses or lesions. Cool and dry. HEAD: Atraumatic. Normocephalic. No temporal or scalp tenderness. EYES: Pupils equal round and reactive. Extraocular motions intact. No scleral icterus. No injection or drainage. ENT: Nose without bleeding, purulent drainage or septal hematoma. Throat without erythema, tonsillar hypertrophy or exudate. Uvula midline. Airway patent. NECK: Trachea midline. No lymphadenopathy. Supple, nontender, no meningeal signs. CARDIOVASCULAR: Regular rate and rhythm without gallops, or rubs. (+)2/6 systolic murmur appreciated. RESPIRATORY: Clear to auscultation. Breath sounds diminished bilaterally. No wheezes, rales, or rhonchi. GASTROINTESTINAL: Abdomen soft, non-tender, nondistended. No hepato-splenomegaly , or palpable masses. No guarding. MUSCULOSKELETAL: Extremities without clubbing, cyanosis, or edema. (+) tenderness over right hip. No effusion or edema noted. No calf tenderness. NEUROLOGICAL: Awake and alert. Decreased range of motion right lower extremity. No focal neurologic findings. Normal speech. 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 //Hairline fractures of the left symphysis pubis, right anterior acetabulum and right inferior pubic ramus in a patient with a previous right bipolar hip replacement Admit to inpatient, discussed with lining caser Right hip xray personally interpreted - previous right bipolar hip replacement, possible hairline fracture right acetabulum CT right hip shows right total hip arthroplasty with hypertrophic changes starting the femoral component, osteopenia with hairline fractures and left symphysis pubis, right anterior acetabulum and right inferior pubic ramus. ED physician discussed with Orthopedic surgeon who stated fractures are nonoperative. Pain management PT/OT eval/treatment - WBAT>> recommend rehabilitation at discharge //Dementia Resume home Donepezil //HTN Good control presently Resume home medications except for HCTZ Monitor BP //DM Hold home Metformin obtain A1c level accucheck ISS //JOEL creatinine 1.93 hold home HCTZ gentle IVF Avoid nephrotoxic agents Monitor lab //History of asthma Duonebs prn supplemental oxygen //Anemia Mild am labs to monitor //Leukocytosis Mild patient is afebrile, HR 82 UA ordered am labs to monitor //Osteopenia Obtain vitamin D level //Daily EtOH use Thiamine and folate daily Watch for signs of alcohol withdrawal CIWA protocol //Hypothyroidism Resume home levothyroxine Obtain TSH level //Dyslipidemia Resume home Crestor dose //DVT prophylaxis Heparin sq Discharge Planning Medically stable to transfer to rehabilitation once arrangements done Steven Christensen MD October 30, 2016 12:38
[2016-10-30] MEDS: DONEPEZIL HCL 5 MG TAB PO SCH (20:33)
[2016-10-31] VITALS (7 sets, daily range): BP systolic 126–156; BP diastolic 69–77; PULSE 73–80; RESP 17–18; TEMP 96.8–98.1; O2SAT 96–99
[2016-10-31] MEDS: HEPARIN SODIUM - SQ 10,000 UNITS/ML VIAL SQ SCH ×3 (05:42→21:22)
[2016-10-31] MEDS: DOCUSATE SODIUM 100 MG CAP PO SCH ×2 (05:42→17:32)
[2016-10-31] MEDS: INSULIN ASPART SUPPLEMENTAL SCALE SQ SCH ×4 (06:17→21:00)
[2016-10-31] MEDS: CETIRIZINE HCL 10 MG TAB PO SCH (09:27)
[2016-10-31] MEDS: CHOLECALCIFEROL (VIT D3) 1000 UNIT TAB PO SCH (09:27)
[2016-10-31] MEDS: PYRIDOXINE HCL 50 MG TAB PO SCH (09:27)
[2016-10-31] MEDS: CYANOCOBALAMIN 100 MCG TAB PO SCH (09:27)
[2016-10-31] MEDS: THIAMINE HCL 100 MG TAB PO SCH (09:28)
[2016-10-31] MEDS: ASPIRIN EC 81 MG TABEC PO SCH (09:28)
[2016-10-31] MEDS: MAGNESIUM OXIDE 400 MG TAB PO SCH (09:28)
[2016-10-31] MEDS: LEVOTHYROXINE SODIUM 125 MCG TAB PO SCH (09:28)
[2016-10-31] MEDS: MULTIVITAMINS/MINERALS THERAPEUTIC TAB PO SCH (09:28)
[2016-10-31] MEDS: FOLIC ACID 1 MG TAB PO SCH (09:28)
[2016-10-31] MEDS: SODIUM CHLORIDE 0.9% FLUSH 10 ML FLUSH IV FLUSH SCH ×2 (09:28→21:21)
--- NOTE | 2016-10-31 13:41 | HHI.PR ---
Subjective Remarks Resting in bed comfortably no chest pain or short of breath, afebrile Awaiting placement to [facility] Objective Vitals Vital Signs Date Time Temp Pulse Resp B/P Pulse Ox O2 Delivery O2 Flow Rate FiO2 10/31/16 12:00 98.1 79 18 144/70 99 10/31/16 11:02 98 21 10/31/16 08:18 97.9 80 18 152/72 98 10/31/16 04:40 96.9 73 18 126/72 97 10/31/16 00:55 96.8 74 17 132/69 98 10/30/16 22:07 Room Air 10/30/16 20:45 96.7 74 17 138/66 94 10/30/16 17:56 99 21 10/30/16 15:28 97.4 89 18 136/70 99 I/O 10/30/16 10/30/16 10/30/16 10/31/16 10/31/16 10/31/16 07:00 15:00 23:00 07:00 15:00 23:00 Intake Total 475 ml 240 ml 480 ml 240 ml Output Total 150 ml 300 ml Balance 475 ml 90 ml 480 ml -60 ml Intake Oral 0 ml 240 ml 480 ml 240 ml IV Total 475 ml Output Urine Total 150 ml 300 ml # Voids 2 3 # Bowel Movements 1 0 0 Result Diagram: 10/29/1652910/29/16529 Objective Remarks GENERAL: This is a well-nourished, well-developed patient, in no apparent distress. Awake and alert. SKIN: No rashes, ecchymoses or lesions. Cool and dry. HEAD: Atraumatic. Normocephalic. No temporal or scalp tenderness. EYES: Pupils equal round and reactive. Extraocular motions intact. No scleral icterus. No injection or drainage. ENT: Nose without bleeding, purulent drainage or septal hematoma. Throat without erythema, tonsillar hypertrophy or exudate. Uvula midline. Airway patent. NECK: Trachea midline. No lymphadenopathy. Supple, nontender, no meningeal signs. CARDIOVASCULAR: Regular rate and rhythm without gallops, or rubs. (+)2/6 systolic murmur appreciated. RESPIRATORY: Clear to auscultation. Breath sounds diminished bilaterally. No wheezes, rales, or rhonchi. GASTROINTESTINAL: Abdomen soft, non-tender, nondistended. No hepato-splenomegaly , or palpable masses. No guarding. MUSCULOSKELETAL: Extremities without clubbing, cyanosis, or edema. (+) tenderness over right hip. No effusion or edema noted. No calf tenderness. NEUROLOGICAL: Awake and alert. Decreased range of motion right lower extremity. No focal neurologic findings. Normal speech. 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 //Hairline fractures of the left symphysis pubis, right anterior acetabulum and right inferior pubic ramus in a patient with a previous right bipolar hip replacement Admit to inpatient, discussed with manager of case management Right hip xray personally interpreted - previous right bipolar hip replacement, possible hairline fracture right acetabulum CT right hip shows right total hip arthroplasty with hypertrophic changes starting the femoral component, osteopenia with hairline fractures and left symphysis pubis, right anterior acetabulum and right inferior pubic ramus. ED physician discussed with Orthopedic surgeon who stated fractures are nonoperative. Pain management PT/OT eval/treatment - WBAT>> recommend rehabilitation at discharge //Dementia Resume home Donepezil //HTN Good control presently Resume home medications except for HCTZ Monitor BP //DM Hold home Metformin obtain A1c level accucheck ISS //JOEL creatinine 1.93 hold home HCTZ gentle IVF Avoid nephrotoxic agents Monitor lab //History of asthma Duonebs prn supplemental oxygen //Anemia Mild am labs to monitor //Leukocytosis Mild patient is afebrile, HR 82 UA ordered am labs to monitor //Osteopenia Obtain vitamin D level //Daily EtOH use Thiamine and folate daily Watch for signs of alcohol withdrawal CIWA protocol //Hypothyroidism Resume home levothyroxine Obtain TSH level //Dyslipidemia Resume home Crestor dose //DVT prophylaxis Heparin sq Discharge Planning Medically stable to transfer to rehabilitation once arrangements done Steven Christensen MD October 31, 2016 13:41
[2016-10-31] MEDS: DONEPEZIL HCL 5 MG TAB PO SCH (21:21)
[2016-11-01 00:20] VITALS: BP 134/70; PULSE 74; RESP 17; TEMP 96.8; O2SAT 96
[2016-11-01] MEDS: HEPARIN SODIUM - SQ 10,000 UNITS/ML VIAL SQ SCH (06:10)
[2016-11-01] MEDS: DOCUSATE SODIUM 100 MG CAP PO SCH (06:10)
[2016-11-01] MEDS: INSULIN ASPART SUPPLEMENTAL SCALE SQ SCH ×2 (06:10→10:23)
[2016-11-01 08:00] VITALS: BP_SYST 108; BP_SYST 126; BP_DIAS 70; BP_DIAS 73; PULSE 74; PULSE 87; RESP 18; TEMP 96.3; TEMP 97.4; O2SAT 17; O2SAT 96; O2SAT 97
--- NOTE | 2016-11-01 09:39 | HHI.DS ---
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 Patient reports he was walking his home when he tripped landing on the right hip and began to experience immediate pain. X-ray of the right hip obtained in the ED showed no definite fracture and evidence of the previous hip arthroplasty which appeared to be in place. CT was also obtained which revealed hairline fractures of the left symphysis pubis, right anterior acetabulum and right inferior pubic ramus. ED physician spoke with the orthopedic surgeon who stated the fractures are nonoperative. Per the ED note, patient also reports hitting his head however he denies any loss of consciousness and a CT of the head obtained revealed slightly atrophic and small vessel ischemic changes without any evidence for acute hemorrhage or mass effect. Patient states his pain level is currently 7/10. CBC/BMP: 10/29/16 0530 10/29/16 0530 PE at Discharge GENERAL: This is a well-nourished, well-developed patient, in no apparent distress. Awake and alert. SKIN: No rashes, ecchymoses or lesions. Cool and dry. HEAD: Atraumatic. Normocephalic. No temporal or scalp tenderness. EYES: Pupils equal round and reactive. Extraocular motions intact. No scleral icterus. No injection or drainage. ENT: Nose without bleeding, purulent drainage or septal hematoma. Throat without erythema, tonsillar hypertrophy or exudate. Uvula midline. Airway patent. NECK: Trachea midline. No lymphadenopathy. Supple, nontender, no meningeal signs. CARDIOVASCULAR: Regular rate and rhythm without gallops, or rubs. (+)2/6 systolic murmur appreciated. RESPIRATORY: Clear to auscultation. Breath sounds diminished bilaterally. No wheezes, rales, or rhonchi. GASTROINTESTINAL: Abdomen soft, non-tender, nondistended. No hepato-splenomegaly , or palpable masses. No guarding. MUSCULOSKELETAL: Extremities without clubbing, cyanosis, or edema. (+) tenderness over right hip. No effusion or edema noted. No calf tenderness. NEUROLOGICAL: Awake and alert. Decreased range of motion right lower extremity. No focal neurologic findings. Normal speech. 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 who presents to [facility] with complaints of right hip pain status post fall on day of admission Patient was found to have Hairline fractures of the left symphysis pubis, right anterior acetabulum and right inferior pubic ramus in a patient with a previous right bipolar hip replacement Admit to inpatient, discussed with window caser, Right hip xray personally interpreted - previous right bipolar hip replacement, possible hairline fracture right acetabulum CT right hip shows right total hip arthroplasty with hypertrophic changes starting the femoral component, osteopenia with hairline fractures and left symphysis pubis, right anterior acetabulum and right inferior pubic ramus. ED physician discussed with Orthopedic surgeon who stated fractures are nonoperative., Pain management provided PT/OT eval/treatment - WBAT>> recommend rehabilitation at discharge, patient needed 3 nights for legibility For his rest of medical problem dementia hypertension that is mellitus patient resumed on his medication, he had a [employer] which is improved during hospitalization Pt Condition on Discharge: Stable Discharge Disposition: Discharge to SNF Discharge Time: <= 30 minutes Discharge Instructions DIET: Follow Instructions for: Heart Healthy Diet, Diabetic Diet Activities you can perform: See Additionl Instruction Other Activity Instructions: per ortho recs progressive WB New Medications: Thiamine (Vitamin B-1) 100 Mg Tab 100 MG PO DAILY . #30 TAB Continued Medications: Amlodipine (Amlodipine) 10 Mg Tab 10 MG PO DAILY Blood Pressure Management #[address] Ref [address] (Aspirin 81) 81 Mg Tabdr 81 MG PO DAILY Ref 0 TAB Cetirizine (Zyrtec Allergy Childrens) 10 Mg Tab 10 MG PO DAILY Allergies Ref 0 TAB Cholecalciferol (Vitamin D-3) 2,000 Unit Tab 1 TAB PO DAILY Cyanocobalamin (Vitamin B12) 500 Mcg Tab 500 MCG PO DAILY #1 BOTTLE Donepezil (Donepezil) 5 Mg Tab 7.5 MG PO HS Dementia #30 Ref 0 TAB Hydrochlorothiazide (Hydrochlorothiazide) 25 Mg Tab 25 MG PO DAILY #30 Ref 0 TAB Ipratropium Nasal (Ipratropium Nasal) 0.03% [place] 2 SPRAY NASAL DAILY Levothyroxine (Levothyroxine) 125 Mcg Tab 125 MCG PO DAILY Thyroid #30 Ref 0 TAB Magnesium (Magnesium) 500 Mg Tab 500 MG PO DAILY Nutritional Supplement Ref 0 TAB Metformin (Metformin) 1,000 Mg Tab 1000 MG PO BIDPC With meals Blood Sugar Management #60 Ref 0 TAB Multiple Vitamins W/ Minerals (Centrum Silver Adult 50+) 1 Tab Tab 1 TAB PO DAILY Pyridoxine (Vitamin B-6) 100 Mg Tab 100 MG PO DAILY Nutritional Supplement #30 Ref 0 TAB Rosuvastatin (Crestor) 10 Mg Tab 10 MG PO DAILY Cholesterol Management #30 Ref 0 TAB Steven Christensen MD November 01, 2016 09:39
--- NOTE | 2016-11-01 09:42 | HHI.PR ---
Subjective Remarks Doing well no acute issue, plan to discharge to SNF today Objective Vitals Vital Signs Date Time Temp Pulse Resp B/P Pulse Ox O2 Delivery O2 Flow Rate FiO2 11/01/16 00:20 96.8 74 17 134/70 96 10/31/16 20:40 97.4 75 17 151/74 97 10/31/16 16:15 98.0 78 18 156/77 96 10/31/16 12:00 98.1 79 18 144/70 99 10/31/16 11:02 98 21 I/O 10/31/16 10/31/16 10/31/16 11/01/16 11/01/16 11/01/16 07:00 15:00 23:00 07:00 15:00 23:00 Intake Total 240 ml 980 ml 240 ml 120 ml Output Total 300 ml 250 ml Balance -60 ml 980 ml 240 ml -130 ml Intake Oral 240 ml 980 ml 240 ml 120 ml Output Urine Total 300 ml 250 ml # Voids 4 0 # Bowel Movements 0 1 0 1 Result Diagram: 10/29/1652910/29/16529 Objective Remarks GENERAL: This is a well-nourished, well-developed patient, in no apparent distress. Awake and alert. SKIN: No rashes, ecchymoses or lesions. Cool and dry. HEAD: Atraumatic. Normocephalic. No temporal or scalp tenderness. EYES: Pupils equal round and reactive. Extraocular motions intact. No scleral icterus. No injection or drainage. ENT: Nose without bleeding, purulent drainage or septal hematoma. Throat without erythema, tonsillar hypertrophy or exudate. Uvula midline. Airway patent. NECK: Trachea midline. No lymphadenopathy. Supple, nontender, no meningeal signs. CARDIOVASCULAR: Regular rate and rhythm without gallops, or rubs. (+)2/6 systolic murmur appreciated. RESPIRATORY: Clear to auscultation. Breath sounds diminished bilaterally. No wheezes, rales, or rhonchi. GASTROINTESTINAL: Abdomen soft, non-tender, nondistended. No hepato-splenomegaly , or palpable masses. No guarding. MUSCULOSKELETAL: Extremities without clubbing, cyanosis, or edema. (+) tenderness over right hip. No effusion or edema noted. No calf tenderness. NEUROLOGICAL: Awake and alert. Decreased range of motion right lower extremity. No focal neurologic findings. Normal speech. Procedures None A/P Problem List: (1) DM type 2 (diabetes mellitus, type 2) ICD Code: E11.9 Status: Chronic (2) Chronic lower back pain ICD Code: G89.29 Status: Chronic (3) HLD (hyperlipidemia) ICD Code: E78.5 Status: Chronic (4) Fracture of femoral neck, right ICD Code: S72.001A Status: Acute Assessment and Plan 10/30: Stable no acute issue, awaiting placement to rehabilitation, medically stable 10/31: Patient medically stable awaiting placement to SNF 11/01: Patient doing well, no acute issue plan to discharge to SNF today 76-year-old male with a past medical history significant for dementia, diabetes , hypertension, hypothyroidism, asthma, dyslipidemia, GERD and previous right femoral neck fracture 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 //Hairline fractures of the left symphysis pubis, right anterior acetabulum and right inferior pubic ramus in a patient with a previous right bipolar hip replacement Admit to inpatient, discussed with case management manager Right hip xray personally interpreted - previous right bipolar hip replacement, possible hairline fracture right acetabulum CT right hip shows right total hip arthroplasty with hypertrophic changes starting the femoral component, osteopenia with hairline fractures and left symphysis pubis, right anterior acetabulum and right inferior pubic ramus. ED physician discussed with Orthopedic surgeon who stated fractures are nonoperative. Pain management PT/OT eval/treatment - WBAT>> recommend rehabilitation at discharge //Dementia Resume home Donepezil //HTN Good control presently Resume home medications except for HCTZ Monitor BP //DM Hold home Metformin obtain A1c level accucheck ISS //JOEL creatinine 1.93 hold home HCTZ gentle IVF Avoid nephrotoxic agents Monitor lab //History of asthma Duonebs prn supplemental oxygen //Anemia Mild am labs to monitor //Leukocytosis Mild patient is afebrile, HR 82 UA ordered am labs to monitor //Osteopenia Obtain vitamin D level //Daily EtOH use Thiamine and folate daily Watch for signs of alcohol withdrawal CIWA protocol //Hypothyroidism Resume home levothyroxine Obtain TSH level //Dyslipidemia Resume home Crestor dose //DVT prophylaxis Heparin sq Discharge Planning Medically stable to transfer to rehabilitation once arrangements done Steven Christensen MD November 01, 2016 09:42
[2016-11-01] MEDS: LEVOTHYROXINE SODIUM 125 MCG TAB PO SCH (10:15)
[2016-11-01] MEDS: CHOLECALCIFEROL (VIT D3) 1000 UNIT TAB PO SCH (10:15)
[2016-11-01] MEDS: FOLIC ACID 1 MG TAB PO SCH (10:15)
[2016-11-01] MEDS: MAGNESIUM OXIDE 400 MG TAB PO SCH (10:16)
[2016-11-01] MEDS: PYRIDOXINE HCL 50 MG TAB PO SCH (10:16)
[2016-11-01] MEDS: THIAMINE HCL 100 MG TAB PO SCH (10:16)
[2016-11-01] MEDS: MULTIVITAMINS/MINERALS THERAPEUTIC TAB PO SCH (10:16)
[2016-11-01] MEDS: ASPIRIN EC 81 MG TABEC PO SCH (10:16)
[2016-11-01] MEDS: CYANOCOBALAMIN 100 MCG TAB PO SCH (10:16)
[2016-11-01] MEDS: CETIRIZINE HCL 10 MG TAB PO SCH (10:16)
[2016-11-01] MEDS: SODIUM CHLORIDE 0.9% FLUSH 10 ML FLUSH IV FLUSH SCH (10:17)
[2016-11-01] MEDS ORDERED: OXYC1TAB36 PO (11:07)
[2016-12-23] MEDS ORDERED: LOSA50TA PO (12:27)
[2016-12-23] MEDS ORDERED: DONE5TAB7 PO (12:27)
[2016-12-23] MEDS ORDERED: IPRA0.03 (12:27)
[2016-12-23] MEDS ORDERED: LEVO100T5 PO (15:16)
== END 2016-11-01 14:16 | DRG 535 ==
LOC: NEPC 13:31 → NEDA 17:15 → NEPHCDU 19:03 → OBSVTOIN 10-29 15:15 → N06A 10-29 18:39
PROVIDERS: ADMIT Hospitalist; ATTEND Hospitalist
DX: S32.502A Unspecified fracture of left pubis, initial encounter for closed fracture (principal); S32.491A Other specified fracture of right acetabulum, initial encounter for closed fracture; S32.591A Other specified fracture of right pubis, initial encounter for closed fracture; W19.XXXA Unspecified fall, initial encounter; N17.9 Acute kidney failure, unspecified; F03.90 Unspecified dementia, unspecified severity, without behavioral disturbance, psychotic disturbance, mood disturbance, and anxiety; E11.9 Type 2 diabetes mellitus without complications; Z79.84 Long term (current) use of oral hypoglycemic drugs; Z96.641 Presence of right artificial hip joint; M85.80 Other specified disorders of bone density and structure, unspecified site; I10 Essential (primary) hypertension; Z72.89 Other problems related to lifestyle; D64.9 Anemia, unspecified; K21.9 Gastro-esophageal reflux disease without esophagitis; E78.5 Hyperlipidemia, unspecified; E03.9 Hypothyroidism, unspecified; J45.20 Mild intermittent asthma, uncomplicated; G89.29 Other chronic pain; M54.5 Low back pain; Z79.82 Long term (current) use of aspirin; Z87.891 Personal history of nicotine dependence
CPT/HCPCS: 70450; 73502; 73552; 73700; 80048; 80053; 81001; 82306; 82948; 83036; 83735; 84443; 85025; 85610; 85730; 96360; G0378; G8987-GO; G8987-GP; G8988-GO; G8988-GP; G8996-GN; G8997-GN; G8998-GN; J1644; J7030

== ENCOUNTER → 2016-12-11 | Outpatient (CLI) | payer MEDICARE, BC ==
[~2016-12-11] MED LIST changes: +AMLO10TA2 PO; +ASPI-110 PO; -ASPI81TA82 PO; -BENEPOW5 PO; -CETI10 PO; +CETI1TAB18 PO; +CHOL1TAB42 PO; -CRANCAP10 PO; -DONE5TAB14 PO; +DONE5TAB7 PO; -HYDR-2768 PO; +HYDR25TA5 PO; +IPRA0.03 NASAL; +LEVO100T5 PO; -LEVO125T3 PO; +LEVO125T4 PO; +MAGN500T4 PO; -METF-324 PO; +METF1000 PO; +MIDO5TAB PO; +MULT1TAB PO; -MULTTAB83 PO; -NAPR220T95 PO; -NORV10TA PO; +OXYC1TAB36 PO; -PATA0.6S; +PYRI100T PO; -RESTCAP PO; +VITA100T2 PO; -VITA200017 PO; +VITA500T49 PO
[2016-12-11 09:48] LABS: ANION GAP 19 MEQ/L (5-15); AST (GOT) 21 U/L (15-37); AUTOMATED NEUTROPHIL # 3.4 TH/MM3 (1.8-7.7); BASOPHIL # 0.2 TH/MM3 (0-0.2); BASOPHIL % 2.9 % (0.0-2.0); BICARBONATE 24.7 MEQ/L (21.0-32.0); BLOOD UREA NITROGEN 52 MG/DL (7-18); CHLORIDE 88 MEQ/L (98-107); EOSINOPHIL # 0.2 TH/MM3 (0-0.4); GLOMERULAR FILTRATION RATE 16 ML/MIN (>89); GLUCOSE,FASTING 99 MG/DL (74-99); HEMATOCRIT 37.2 % (39.0-51.0); HEMO FLAGS DIFF FINAL; LYMPHOCYTE # 1.4 TH/MM3 (1.0-4.8); MEAN CELL VOLUME 90.2 FL (80.0-100.0); MEAN CORPUSCULAR HGB CONC 33.3 % (32.0-36.0); MONO % 8.7 % (0.0-8.0); NEUT % 60.4 % (16.0-70.0); PLATELET COUNT 244 TH/MM3 (150-450); RED BLOOD COUNT 4.12 MIL/MM3 (4.50-5.90); RED CELL DISTRIBUTION WIDTH 12.9 % (11.6-17.2); SODIUM (NA) 132 MEQ/L (136-145); WHITE BLOOD COUNT 5.6 TH/MM3 (4.0-11.0)
[2016-12-11 09:50] LABS: ALT (GPT) 19 U/L (12-78)
[2016-12-11 10:15] LABS: ALKALINE PHOSPHATASE 105 U/L (45-117); FERRITIN 723 NG/ML (26-388); INDIRECT BILIRUBIN 0.5 MG/DL (0.0-0.8); TOTAL BILIRUBIN ADULT 0.8 MG/DL (0.2-1.0)
[2016-12-11 10:39] LABS: HEMOGLOBIN A1b 1.8 %; HEMOGLOBIN LA1C 2.3 %; HEMOGLOBIN P3 6.3 %
[2016-12-12 06:06] LABS: FREE PSA/PSA RATIO 0.31 ratio (())
== END ==
LOC: PLAB 07:43
PROVIDERS: ATTEND Urology
DX: R97.20 Elevated prostate specific antigen [PSA] (principal); E11.9 Type 2 diabetes mellitus without complications; E78.5 Hyperlipidemia, unspecified; I10 Essential (primary) hypertension; E03.9 Hypothyroidism, unspecified; M79.604 Pain in right leg; E55.9 Vitamin D deficiency, unspecified; R53.83 Other fatigue
CPT/HCPCS: 36415; 80048; 80076; 82465; 82607; 82728; 83036; 84153; 84154; 84443; 85025

== ENCOUNTER → 2016-12-18 | Outpatient (CLI) | payer MEDICARE, BC ==
[2016-12-18 13:30] LABS: URINE TOTAL PROTEIN TIMED 49.1 MG/DL
[2016-12-18 13:41] LABS: BICARBONATE 23.9 MEQ/L (21.0-32.0)
[2016-12-18 13:42] LABS: TOTAL PROTEIN SPE 7.3 GM/DL (6.0-7.6)
[2016-12-18 22:09] LABS: ALBUMIN SPE 4.74 GM/DL (3.50-5.00); ALPHA 1 GLOBULIN 0.23 GM/DL (0.11-0.29); ALPHA 2 GLOBULIN 0.81 GM/DL (0.22-1.00); BETA GLOBULINS (SPE) 0.77 GM/DL (0.53-1.03)
[2016-12-20 08:41] LABS: AUTOMATED NEUTROPHIL # 4.3 TH/MM3 (1.8-7.7); BASOPHIL # 0.1 TH/MM3 (0-0.2); BASOPHIL % 0.9 % (0.0-2.0); EOSINOPHIL # 0.2 TH/MM3 (0-0.4); EOSINOPHIL % 2.5 % (0.0-4.0); HEMO FLAGS DIFF FINAL; LYMPH % 22.5 % (9.0-44.0); LYMPHOCYTE # 1.5 TH/MM3 (1.0-4.8); MEAN CELL VOLUME 90.8 FL (80.0-100.0); MEAN CORPUSCULAR HEMOGLOBIN 31.1 PG (27.0-34.0); MEAN CORPUSCULAR HGB CONC 34.2 % (32.0-36.0); MONO % 9.6 % (0.0-8.0); NEUT % 64.5 % (16.0-70.0); PLATELET COUNT 267 TH/MM3 (150-450); RED BLOOD COUNT 3.86 MIL/MM3 (4.50-5.90); RED CELL DISTRIBUTION WIDTH 12.4 % (11.6-17.2); WHITE BLOOD COUNT 6.8 TH/MM3 (4.0-11.0)
== END ==
LOC: PLAB 07:57
PROVIDERS: ATTEND Internal Medicine Nephrology
DX: E55.9 Vitamin D deficiency, unspecified (principal); I12.9 Hypertensive chronic kidney disease with stage 1 through stage 4 chronic kidney disease, or unspecified chronic kidney disease; N18.4 Chronic kidney disease, stage 4 (severe); E11.22 Type 2 diabetes mellitus with diabetic chronic kidney disease
CPT/HCPCS: 36415; 80069; 82306; 83970; 84165; 86038; 86160; 86335

== ENCOUNTER 2016-12-23 12:00 | Inpatient (IN) | payer MEDICARE, BC ==
[2016-12-22 20:00] VITALS: BP_SYST 83; BP_SYST 85; BP_DIAS 56; BP_DIAS 59; PULSE 56; RESP 16; TEMP 96.7; O2SAT 100
[~2016-12-23] VITALS: Ht 182.9 cm; Wt 81.6 kg
[~2016-12-23 12:00] MED LIST changes: -IPRA0.03; -LEVO100T5 PO; -LOSA50TA PO; -MIDO5TAB PO
[2016-12-23] MEDS ORDERED: SODIUM CHLOR 0.9% 1000 ML INJ 1,000 ML IV ONE ×2 (12:12→13:30)
[2016-12-23 12:13] VITALS: BP 86/69; PULSE 85; RESP 15; TEMP 98.2; O2SAT 98
[2016-12-23] MEDS ORDERED: SODIUM CHLORIDE 0.9% FLUSH 10 ML FLUSH IVF PRN (12:15)
[2016-12-23 12:16] VITALS: RESP 15; O2SAT 98
[2016-12-23] MEDS ORDERED: LOSA50TA PO ×2 (12:27)
[2016-12-23] MEDS ORDERED: DONE5TAB7 PO ×2 (12:27)
[2016-12-23] MEDS ORDERED: IPRA0.03 ×2 (12:27)
[2016-12-23 12:29] LABS: AUTOMATED NEUTROPHIL # 4.3 TH/MM3 (1.8-7.7); BASOPHIL % 0.8 % (0.0-2.0); EOSINOPHIL # 0.1 TH/MM3 (0-0.4); EOSINOPHIL % 1.3 % (0.0-4.0); HEMATOCRIT 34.1 % (39.0-51.0); HEMO FLAGS DIFF FINAL; LYMPH % 17.8 % (9.0-44.0); LYMPHOCYTE # 1.1 TH/MM3 (1.0-4.8); MEAN CELL VOLUME 90.2 FL (80.0-100.0); MEAN CORPUSCULAR HEMOGLOBIN 29.1 PG (27.0-34.0); MEAN CORPUSCULAR HGB CONC 32.3 % (32.0-36.0); MONO % 9.6 % (0.0-8.0); NEUT % 70.5 % (16.0-70.0); PLATELET COUNT 287 TH/MM3 (150-450); RED BLOOD COUNT 3.78 MIL/MM3 (4.50-5.90); RED CELL DISTRIBUTION WIDTH 12.5 % (11.6-17.2); WHITE BLOOD COUNT 6.1 TH/MM3 (4.0-11.0)
--- NOTE | 2016-12-23 12:29 | PD ---
HPI . Low blood pressure Chief Complaint: Syncope/Near-Syncope Time Seen by Provider: 12:11 Travel History International Travel<30 days: No Contact w/Intl Traveler<30days: No Traveled to known affect area: No History of Present Illness HPI This is a demented patient who was brought to us via [facility] with the chief complaint of low blood pressure. The patient is not really able to offer much history. He suffers from dementia. The patient states that he does not feel poorly at all. He denies any chest pain or shortness of breath. He denies any vomiting or diarrhea. He does not know whether or not there have been any recent changes to his medications. PFSH Past Medical History Hx Anticoagulant Therapy: Yes (BABY ASA DAILY) Arthritis: Yes Asthma: Yes Autoimmune Disease: No Anxiety: No Depression: No Heart Rhythm Problems: No Cancer: No Cardiovascular Problems: Yes (CHOL) High Cholesterol: Yes Chest Pain: No Congestive Heart Failure: No COPD: No Cerebrovascular Accident: No Dementia: Yes Diabetes: Yes Patient Takes Glucophage: Yes Endocrine: Yes Gastrointestinal Disorders: Yes GERD: Yes Genitourinary: Yes Hiatal Hernia: Yes Hypertension: Yes Kidney Stones: No Musculoskeletal: Yes (DDD) Neurologic: Yes Psychiatric: No Reproductive: No Respiratory: Yes Migraines: No Renal Failure: No Seizures: No Sleep Apnea: No Thyroid Disease: Yes Ulcer: Yes (WHEN YOUNGER) ?: Not Past Surgical History Abdominal Surgery: Yes (HERNIA, GALLBLADDER) Cardiac Surgery: No Cholecystectomy: Yes Endocrine Surgery: No Eye Surgery: Yes (BILATERAL CATARACT) Genitourinary Surgery: Yes (VASECTOMY) Joint Replacement: No Oral Surgery: Yes (CLEFT LIP AND PALATE/NOSE) Pacemaker: No Thoracic Surgery: No Tonsillectomy: Yes Other Surgery: Yes (HIP SURGERY) Social History Alcohol Use: Yes (1/2-1 cup liqor most days) Tobacco Use: No Substance Use: No Allergies-Medications (Allergen,Severity, Reaction): Coded Allergies: Lipitor (Verified Allergy, Unknown, 02/13/16) Advair (Verified Adverse Reaction, Unknown, 02/13/16) Reported Meds & Prescriptions Reported Meds & Active Scripts Active Reported Losartan (Losartan Potassium) 50 Mg Tab 50 Mg PO DAILY Ipratropium Nasal 0.03% [place] Donepezil 5 Mg Tab 5 Mg PO HS Vitamin B12 (Cyanocobalamin) 500 Mcg Tab 500 Mcg PO DAILY Vitamin B-6 (Pyridoxine HCl) 100 Mg Tab 100 Mg PO DAILY Vitamin D-3 (Cholecalciferol) 2,000 Unit Tab 1 Tab PO DAILY Centrum Silver Adult 50+ (Multiple Vitamins W/ Minerals) 1 Tab Tab 1 Tab PO DAILY Aspirin 81 (Aspirin) 81 Mg Tabdr 81 Mg PO DAILY Metformin (Metformin HCl) 1,000 Mg Tab 1,000 Mg PO BIDPC With meals Hydrochlorothiazide 25 Mg Tab 25 Mg PO DAILY Crestor (Rosuvastatin Calcium) 10 Mg Tab 10 Mg PO DAILY Amlodipine (Amlodipine Besylate) 10 Mg Tab 10 Mg PO DAILY Review of Systems Except as stated in HPI: all other systems reviewed are Neg General / Constitutional: No: Fever, Chills Eyes: No: Blurred Vision HENT: No: Headaches Cardiovascular: No: Chest Pain or Discomfort Respiratory: No: Shortness of Breath Gastrointestinal: No: Nausea, Vomiting, Diarrhea Physical Exam Narrative GENERAL: Pleasantly demented elderly patient who is a little bit pale but who is otherwise in no acute distress. SKIN: Warm and dry. HEAD: Atraumatic. Normocephalic. EYES: Pupils equal and round. Extraocular movements are intact. ENT: No nasal bleeding or discharge. Mucous membranes pink and moist. NECK: Trachea midline. Neck is supple. CARDIOVASCULAR: Regular rate and rhythm. Heart sounds are normal. RESPIRATORY: No accessory muscle use. Lungs are clear with good air movement throughout. GASTROINTESTINAL: Abdomen soft, non-tender, nondistended. No pulsatile abdominal mass. RECTAL: Soft, dark stool in the rectal vault. MUSCULOSKELETAL: No obvious deformities. No edema. NEUROLOGICAL: Awake and alert. No obvious cranial nerve deficits. Motor grossly within normal limits. Normal speech. Demented. PSYCHIATRIC: Unable to assess. Data Data Last Documented VS Vital Signs Date Time Temp Pulse Resp B/P Pulse Ox O2 Delivery O2 Flow Rate FiO2 12/23/16 13:26 68 15 77/53 100 Room Air 12/23/16 12:13 98.2 Orders Basic Metabolic Panel (Bmp) (12/23/16 12:12) Complete Blood Count With Diff (12/23/16 12:12) Urinalysis - C+S If Indicated (12/23/16 12:12) Ecg Monitoring (12/23/16 12:12) Iv Access Insert/Monitor (12/23/16 12:12) Oximetry (12/23/16 12:12) Sodium Chloride 0.9% Flush (Ns Flush) (12/23/16 12:15) Sodium Chlor 0.9% 1000 Ml Inj (Ns 1000 M (12/23/16 12:12) Sodium Chlor 0.9% 1000 Ml Inj (Ns 1000 M (12/23/16 13:30) Cath For Specimen (12/23/16 13:24) Urine Culture (12/23/16 12:15) Ceftriaxone Inj (Rocephin Inj) (12/23/16 13:45) Potassium Chloride (Kcl) (12/23/16 13:45) Labs Laboratory Tests Test 12/23/16 12:15 White Blood Count 6.1 TH/MM3 Red Blood Count 3.78 MIL/MM3 Hemoglobin 11.0 GM/DL Hematocrit 34.1 % Mean Corpuscular Volume 90.2 FL Mean Corpuscular Hemoglobin 29.1 PG Mean Corpuscular Hemoglobin 32.3 % Concent Red Cell Distribution Width 12.5 % Platelet Count 287 TH/MM3 Mean Platelet Volume 9.2 FL Neutrophils (%) (Auto) 70.5 % Lymphocytes (%) (Auto) 17.8 % Monocytes (%) (Auto) 9.6 % Eosinophils (%) (Auto) 1.3 % Basophils (%) (Auto) 0.8 % Neutrophils # (Auto) 4.3 TH/MM3 Lymphocytes # (Auto) 1.1 TH/MM3 Monocytes # (Auto) 0.6 TH/MM3 Eosinophils # (Auto) 0.1 TH/MM3 Basophils # (Auto) 0.0 TH/MM3 CBC Comment DIFF FINAL Differential Comment Urine Collection Type CATH Urine Color DARK-YELLOW Urine Turbidity CLEAR Urine pH 5.0 Urine Specific [place] 1.021 Urine Protein TRACE mg/dL Urine Glucose (UA) NEG mg/dL Urine Ketones 15 mg/dL Urine Occult Blood SMALL Urine Nitrite NEG Urine Bilirubin NEG Urine Leukocyte Esterase NEG Urine RBC 0-3 /hpf Urine WBC 15-19 /hpf Urine WBC Clumps MOD Urine Amorphous Sediment MOD Urine Hyaline Casts 6-9 /lpf Microscopic Urinalysis Comment CULTURE INDICATED Sodium Level 136 MEQ/L Potassium Level 2.8 MEQ/L Chloride Level 94 MEQ/L Carbon Dioxide Level 25.7 MEQ/L Anion Gap 16 MEQ/L Blood Urea Nitrogen 32 MG/DL Creatinine 3.40 MG/DL Estimat Glomerular Filtration 18 ML/MIN Rate Random Glucose 111 MG/DL Calcium Level 9.0 MG/DL MDM Medical Decision Making Medical Screen Exam Complete: Yes Emergency Medical Condition: Yes Medical Record Reviewed: Yes (the patient's most recent medical problem has been a pelvic fracture. He suffered that on 10/29. His diastolic blood pressures during that visit were around 70.) Differential Diagnosis My differential diagnosis of hypotension includes but is not limited to acute blood loss, gastroenteritis, medication effect Narrative Course Patient presents for treatment of hypotension. He has received a fluid bolus per EMS and received another fluid bolus. His stool is Hemoccult negative. Other labs are pending. CBC & BMP Diagram 12/23/16 12:15 UA>>15-19 WBC, mod WBC clumps This patient had relatively normal renal function and 10/29 with a BUN of 21 and a creatinine of 1.12. He needs to be admitted for treatment of acute renal failure, hypokalemia and UTI. HemaPrompt Point of Care Internal Pos. & Neg. Controls: Passed Fecal Specimen Occult Blood: Negative Diagnosis Primary Impression: Acute renal failure Qualified Code: N17.9 - Acute renal failure, unspecified acute renal failure type Additional Impressions: Hypokalemia UTI (urinary tract infection) Qualified Code: N30.00 - Acute cystitis without hematuria Admitting Information Admitting Physician Requests: Admit Condition: Stable Karla Kerr MD Dec 23, 2016 12:29
[2016-12-23 12:43] LABS: BICARBONATE 25.7 MEQ/L (21.0-32.0)
[2016-12-23 12:45] LABS: POTASSIUM 2.8 MEQ/L (3.5-5.1)
[2016-12-23 13:26] VITALS: BP 77/53; PULSE 68; RESP 15; O2SAT 100
[2016-12-23 13:27] LABS: BLOOD, URINE SMALL (NEG); GLUCOSE,URINE NEG (NEG); KETONE, URINE 15 mg/dL (NEG); NITRITE,URINE NEG (NEG)
[2016-12-23 13:29] LABS: METHOD OF COLLECTION CATH; URINE COLOR DARK-YELLOW (YELLW/STRAW)
[2016-12-23 13:31] LABS: COMMENT (UR) CULTURE INDICATED; CULTURE IF INDICATED CULTURE INDICATED; RBC, URINE 0-3 /hpf (0-3); WBC, URINE 15-19 /hpf (0-5)
[2016-12-23] MEDS ORDERED: POTASSIUM CHLORIDE 20 MEQ CONTROLLED RELEASE TAB PO ONE (13:45)
[2016-12-23] MEDS ORDERED: cefTRIAXone INJ 1,000 MG in SODIUM CHLORIDE 0.9% INJ 100 ML IV ONE (13:45)
[2016-12-23] MEDS ORDERED: ACETAMINOPHEN 325 MG TAB PO PRN ×2 (14:00)
[2016-12-23] MEDS ORDERED: GLUCAGON 1 MG/ML VIAL OTHER PRN (14:00)
[2016-12-23] MEDS ORDERED: DEXTROSE 50% IN WATER 50 ML VIAL(D50) IV PRN (14:00)
[2016-12-23] MEDS ORDERED: NALOXONE HCL 0.4 MG/ML AMP IV PRN (14:00)
[2016-12-23] MEDS ORDERED: SODIUM CHLORIDE 0.9% FLUSH 10 ML FLUSH IV FLUSH PRN (14:00)
[2016-12-23] MEDS ORDERED: ONDANSETRON HCL 4 MG/2 ML VIAL IVP PRN (14:00)
[2016-12-23 14:05] VITALS: BP 90/59; PULSE 58; RESP 14; O2SAT 100
[2016-12-23] MEDS ORDERED: LEVO100T5 PO ×2 (15:16)
--- NOTE | 2016-12-23 15:48 | HHI.HP ---
HPI Service [facility] Primary Care Physician Raul Blair MD Admission Diagnosis ARF, hypokalemia, UTI Diagnoses: (1) Hypotension, unspecified Chief Complaint: Low BP Travel History International Travel<30 Days: No Contact w/Intl Traveler <30 Da: No Traveled to Known Affected Are: No History of Present Illness 76 year-old male with a history of dementia, hypertension, diabetes type 2 was brought to the ED for evaluation for low BP with a systolic of 77 this morning. History is mostly obtained from patient's , who states since patient was discharged from rehabilitation she has been monitoring his blood pressure twice a day and he usually has a systolic of 100. For the past 7-10 days, all oral antihypertensive medications have been held due to low BP. There is no report of any GI bleed patient has a negative fecal occult blood test in the ED. Secondary to worsening renal functions, patient was seen by his patternmaker grader last week. Per patient's , on 12/22/16 patient was feeling weak. He has no complaint of chest pain. Review of Systems Except as stated in HPI: all other systems reviewed are Neg Past Family Social History Past Medical History Hypertension Dementia Diabetes mellitus, type II GERD Hypothyroidism Asthma, intermittent Dyslipidemia Seasonal allergic rhinitis Chronic low back pain Past Surgical History Right bipolar hip replacement 2013 Cholecystectomy Left hernia surgery Cataract surgery Vasectomy Palate repair as a child Reported Medications Losartan (Losartan Potassium) 50 Mg Tab 50 Mg PO DAILY Ipratropium Nasal 0.03% [place] Donepezil 5 Mg Tab 5 Mg PO HS Vitamin B12 (Cyanocobalamin) 500 Mcg Tab 500 Mcg PO DAILY Vitamin B-6 (Pyridoxine HCl) 100 Mg Tab 100 Mg PO DAILY Vitamin D-3 (Cholecalciferol) 2,000 Unit Tab 1 Tab PO DAILY Centrum Silver Adult 50+ (Multiple Vitamins W/ Minerals) 1 Tab Tab 1 Tab PO DAILY Aspirin 81 (Aspirin) 81 Mg Tabdr 81 Mg PO DAILY Metformin (Metformin HCl) 1,000 Mg Tab 1,000 Mg PO BIDPC With meals Hydrochlorothiazide 25 Mg Tab 25 Mg PO DAILY Crestor (Rosuvastatin Calcium) 10 Mg Tab 10 Mg PO DAILY Amlodipine (Amlodipine Besylate) 10 Mg Tab 10 Mg PO DAILY Allergies: Coded Allergies: Lipitor (Verified Allergy, Unknown, 02/13/16) Advair (Verified Adverse Reaction, Unknown, 02/13/16) Family History Father, cancer Mother, CVA Social History Patient lives with his . He reports a remote history of tobacco use having quit at the age of 16. However, review of the medical record reports history of smoking up until 1993. He admits to drinking whiskey daily. He denies any illicit drug use. Physical Exam Vital Signs Vital Signs Date Time Temp Pulse Resp B/P Pulse Ox O2 Delivery O2 Flow Rate FiO2 12/23/16 14:05 58 14 90/59 100 Room Air 12/23/16 13:26 68 15 77/53 100 Room Air 12/23/16 12:16 98 Room Air 12/23/16 12:16 15 98 12/23/16 12:13 98.2 85 15 86/69 98 Physical Exam GENERAL: This is a well-nourished, well-developed patient, in no apparent distress. SKIN: No rashes, ecchymoses or lesions. Cool and dry. HEAD: Atraumatic. Normocephalic. No temporal or scalp tenderness. EYES: Pupils equal round and reactive. Extraocular motions intact. No scleral icterus. No injection or drainage. ENT: Nose without bleeding, purulent drainage or septal hematoma. Throat without erythema, tonsillar hypertrophy or exudate. Uvula midline. Airway patent. NECK: Trachea midline. No JVD or lymphadenopathy. Supple, nontender, no meningeal signs. CARDIOVASCULAR: Regular rate and rhythm without murmurs, gallops, or rubs. RESPIRATORY: Clear to auscultation. Breath sounds equal bilaterally. No wheezes , rales, or rhonchi. GASTROINTESTINAL: Abdomen soft, non-tender, nondistended. No hepato-splenomegaly , or palpable masses. No guarding. MUSCULOSKELETAL: Extremities without clubbing, cyanosis, or edema. No joint tenderness, effusion, or edema noted. No calf tenderness. Negative Homans sign bilaterally. NEUROLOGICAL: Awake and alert. Cranial nerves II through XII intact. Motor and sensory grossly within normal limits. Five out of 5 muscle strength in all muscle groups. Normal speech. Laboratory Laboratory Tests Test 12/23/16 12:15 White Blood Count 6.1 Red Blood Count 3.78 Hemoglobin 11.0 Hematocrit 34.1 Mean Corpuscular Volume 90.2 Mean Corpuscular Hemoglobin 29.1 Mean Corpuscular Hemoglobin 32.3 Concent Red Cell Distribution Width 12.5 Platelet Count 287 Mean Platelet Volume 9.2 Neutrophils (%) (Auto) 70.5 Lymphocytes (%) (Auto) 17.8 Monocytes (%) (Auto) 9.6 Eosinophils (%) (Auto) 1.3 Basophils (%) (Auto) 0.8 Neutrophils # (Auto) 4.3 Lymphocytes # (Auto) 1.1 Monocytes # (Auto) 0.6 Eosinophils # (Auto) 0.1 Basophils # (Auto) 0.0 CBC Comment DIFF FINAL Differential Comment Urine Collection Type CATH Urine Color DARK-YELLOW Urine Turbidity CLEAR Urine pH 5.0 Urine Specific [place] 1.021 Urine Protein TRACE Urine Glucose (UA) NEG Urine Ketones 15 Urine Occult Blood SMALL Urine Nitrite NEG Urine Bilirubin NEG Urine Leukocyte Esterase NEG Urine RBC 0-3 Urine WBC 15-19 Urine WBC Clumps MOD Urine Amorphous Sediment MOD Urine Hyaline Casts 6-9 Microscopic Urinalysis Comment CULTURE INDICATED Sodium Level 136 Potassium Level 2.8 Chloride Level 94 Carbon Dioxide Level 25.7 Anion Gap 16 Blood Urea Nitrogen 32 Creatinine 3.40 Estimat Glomerular Filtration 18 Rate Random Glucose 111 Calcium Level 9.0 Date/Time Procedure Status Source Growth 12/23/16 12:15 Urine Culture Received Urine Catheterized Urine Pending Result Diagram: 12/23/16 1215 12/23/16 1215 Assessment and Plan Problem List: (1) Hypotension, unspecified ICD Code: I95.9 Status: Acute (2) Acute renal failure superimposed on stage 3 chronic kidney disease ICD Code: N17.9 Status: Acute (3) Hypokalemia ICD Code: E87.6 Status: Resolved (4) Abnormal urinalysis ICD Code: R82.90 Status: Acute (5) DM type 2 (diabetes mellitus, type 2) ICD Code: E11.9 Status: Chronic (6) Dementia ICD Code: F03.90 Status: Acute Assessment and Plan 76-year-old man with Hypotension H&H stable and fecal occult blood test negative Hold all oral hypertensive medications Status post 2 L NS boluses in ED, continue with IV fluid hydration Consider midodrine Abnormal UA Status post Rocephin IV 1 in ED, continue with antibiotics pending urine culture Hypokalemia Replace electrolytes, continue with IV fluid with K Acute on chronic kidney disease stage III Gentle IV fluid hydration Avoid all nephrotoxic drugs, monitor BUN and creatinine Patient to follow outpatient with nephrology Diabetes type 2 Hold home regiment, start insulin sliding scale Dementia Resume outpatient medication DVT prophylaxis Subcutaneous heparin Code Status Full code Discussed Condition With Patient, , ED physician Physician Certification 2 Midnight Certification Type: Admission for Inpatient Services Order for Inpatient Services The services are ordered in accordance with Medicare regulations or non- Medicare payer requirements, as applicable. In the case of services not specified as inpatient-only, they are appropriately provided as inpatient services in accordance with the 2-midnight benchmark. Estimated LOS (days): 2 days is the estimated time the patient will need to remain in the hospital, assuming treatment plan goals are met and no additional complications. Post-Hospital Plan: Not yet determined Jamin Back MD Dec 23, 2016 15:48
[2016-12-23] MEDS: INSULIN ASPART SUPPLEMENTAL SCALE SQ SCH ×2 (16:00→21:00)
[2016-12-23] MEDS: NS + KCL 20 MEQ INJ 1,000 ML IV SCH ×2 (16:11→23:35)
[2016-12-23] MEDS ORDERED: RESP: ALBUTEROL 2.5 MG/IPRATROPIUM 0.5 MG NEB (PRN) NEB (16:30)
[2016-12-23 16:47] VITALS: BP 92/61; PULSE 60; RESP 16; TEMP 98.1; O2SAT 98
[2016-12-23 20:00] VITALS: BP 85/56; PULSE 56; RESP 16; TEMP 96.7; O2SAT 100
[2016-12-23] MEDS: DONEPEZIL HCL 5 MG TAB PO SCH (23:33)
[2016-12-23] MEDS: SODIUM CHLORIDE 0.9% FLUSH 10 ML FLUSH IV FLUSH SCH (23:33)
[2016-12-24] VITALS: BP 83/56; PULSE 51; RESP 18; TEMP 96.7; O2SAT 98
[2016-12-24] MEDS ORDERED: SODIUM CHLOR 0.9% 1000 ML INJ 1,000 ML IV ONE (01:30)
[2016-12-24] MEDS: INSULIN ASPART SUPPLEMENTAL SCALE SQ SCH ×4 (06:22→21:00)
[2016-12-24 08:00] VITALS: BP 118/90; PULSE 71; RESP 16; TEMP 96.3; O2SAT 99
[2016-12-24] MEDS ORDERED: HALOPERIDOL LACTATE 5 MG/ML AMP IM PRN (08:15)
[2016-12-24] MEDS: cefTRIAXone INJ 1,000 MG in SODIUM CHLORIDE 0.9% INJ 100 ML IV SCH (08:37)
[2016-12-24] MEDS: SODIUM CHLORIDE 0.9% FLUSH 10 ML FLUSH IV FLUSH SCH ×2 (08:37→21:34)
[2016-12-24] MEDS: PYRIDOXINE HCL 50 MG TAB PO SCH (08:38)
[2016-12-24] MEDS: ASPIRIN EC 81 MG TABEC PO SCH (08:38)
[2016-12-24] MEDS: LEVOTHYROXINE SODIUM 100 MCG TAB PO SCH (08:38)
[2016-12-24] MEDS: CHOLECALCIFEROL (VIT D3) 1000 UNIT TAB PO SCH (08:38)
[2016-12-24] MEDS: ROSUVASTATIN 10 MG PO SCH (08:38)
[2016-12-24] MEDS: NS + KCL 20 MEQ INJ 1,000 ML IV SCH ×2 (08:39→21:34)
[2016-12-24 11:03] LABS: AUTOMATED NEUTROPHIL # 3.3 TH/MM3 (1.8-7.7); BASOPHIL % 0.5 % (0.0-2.0); EOSINOPHIL # 0.1 TH/MM3 (0-0.4); EOSINOPHIL % 1.8 % (0.0-4.0); HEMATOCRIT 29.7 % (39.0-51.0); HEMO FLAGS DIFF FINAL; LYMPH % 18.4 % (9.0-44.0); LYMPHOCYTE # 0.9 TH/MM3 (1.0-4.8); MEAN CELL VOLUME 90.9 FL (80.0-100.0); MEAN CORPUSCULAR HEMOGLOBIN 30.4 PG (27.0-34.0); MEAN CORPUSCULAR HGB CONC 33.5 % (32.0-36.0); MONO % 8.7 % (0.0-8.0); NEUT % 70.6 % (16.0-70.0); PLATELET COUNT 233 TH/MM3 (150-450); RED BLOOD COUNT 3.27 MIL/MM3 (4.50-5.90); RED CELL DISTRIBUTION WIDTH 12.7 % (11.6-17.2); WHITE BLOOD COUNT 4.7 TH/MM3 (4.0-11.0)
--- NOTE | 2016-12-24 11:36 | HHI.PR ---
Subjective Remarks Follow-up hypotension 12/24/16-patient seen and examined, alert and oriented 3. BP this AM improving however still soft. Afebrile and tolerated by mouth without any complication nausea and vomiting. by the bedside. Objective Vitals Vital Signs Date Time Temp Pulse Resp B/P Pulse Ox O2 Delivery O2 Flow Rate FiO2 12/24/16 08:00 96.3 71 16 118/90 99 12/24/16 05:15 12/24/16 00:00 96.7 51 18 83/56 98 12/23/16 20:00 96.7 56 16 85/56 100 12/23/16 16:47 98.1 60 16 92/61 98 12/23/16 14:05 58 14 90/59 100 Room Air 12/23/16 13:26 68 15 77/53 100 Room Air 12/23/16 12:16 98 Room Air 12/23/16 12:16 15 98 12/23/16 12:13 98.2 85 15 86/69 98 I/O 12/23/16 12/23/16 12/23/16 12/24/16 12/24/16 12/24/16 07:00 15:00 23:00 07:00 15:00 23:00 Intake Total 120 ml Balance 120 ml Intake Oral 120 ml # Voids 2 2 # Bowel Movements 0 1 Result Diagram: 12/24/16 1020 12/23/16 1215 Objective Remarks GENERAL: NAD and sitting by the chair SKIN: Warm and dry. HEAD: Normocephalic. EYES: No scleral icterus. No injection or drainage. NECK: Supple, trachea midline. No JVD or lymphadenopathy. CARDIOVASCULAR: Regular rate and rhythm without murmurs, gallops, or rubs. RESPIRATORY: Breath sounds equal bilaterally. No accessory muscle use. GASTROINTESTINAL: Abdomen soft, non-tender, nondistended. MUSCULOSKELETAL: No cyanosis, or edema. BACK: Nontender without obvious deformity. No CVA tenderness. A/P Problem List: (1) Hypotension, unspecified ICD Code: I95.9 Status: Acute (2) Acute renal failure superimposed on stage 3 chronic kidney disease ICD Code: N17.9 Status: Acute (3) Hypokalemia ICD Code: E87.6 Status: Resolved (4) Abnormal urinalysis ICD Code: R82.90 Status: Acute (5) DM type 2 (diabetes mellitus, type 2) ICD Code: E11.9 Status: Chronic (6) Dementia ICD Code: F03.90 Status: Acute Assessment and Plan 76-year-old man with Hypotension H&H stable and fecal occult blood test negative Continue to Hold all oral hypertensive medications Status post 2 L NS boluses in ED, continue with IV fluid hydration Start midodrine 5 mg by mouth 3 times a day Abnormal UA Status post Rocephin IV 1 in ED, continue with antibiotics pending urine culture Hypokalemia Replace electrolytes, continue with IV fluid with K Acute on chronic kidney disease stage III Gentle IV fluid hydration Avoid all nephrotoxic drugs, monitor BUN and creatinine Patient to follow outpatient with nephrology Diabetes type 2 Hold home regiment, continue insulin sliding scale Dementia Continue outpatient medication PT consult to treat and eval DVT prophylaxis Subcutaneous heparin Jamin Back MD Dec 24, 2016 11:36
[2016-12-24 11:40] LABS: ALKALINE PHOSPHATASE 65 U/L (45-117); ALT (GPT) 12 U/L (12-78); ANION GAP 14 MEQ/L (5-15); AST (GOT) 13 U/L (15-37); BICARBONATE 21.7 MEQ/L (21.0-32.0); BLOOD UREA NITROGEN 24 MG/DL (7-18); CHLORIDE 104 MEQ/L (98-107); GLOMERULAR FILTRATION RATE 37 ML/MIN (>89); MAGNESIUM 1.5 MG/DL (1.5-2.5); POTASSIUM 3.1 MEQ/L (3.5-5.1); SODIUM (NA) 140 MEQ/L (136-145); TOTAL BILIRUBIN ADULT 0.5 MG/DL (0.2-1.0)
[2016-12-24 12:00] VITALS: BP 97/60; PULSE 60; RESP 16; TEMP 96.4; O2SAT 100
[2016-12-24] MEDS: MIDODRINE 5 MG TAB PO SCH ×2 (12:55→16:19)
[2016-12-24] MEDS ORDERED: POTASSIUM CHLORIDE 10 MEQ CONTROLLED RELEASE TAB PO ONE (14:00)
[2016-12-24 17:18] VITALS: BP 114/73; PULSE 71; RESP 16; TEMP 96.6; O2SAT 99
[2016-12-24 20:00] VITALS: BP 99/71; PULSE 63; RESP 18; TEMP 97.4; O2SAT 95
[2016-12-24] MEDS: DONEPEZIL HCL 5 MG TAB PO SCH (21:34)
[2016-12-25] VITALS: BP 103/66; PULSE 57; RESP 16; TEMP 95.5; O2SAT 97
[2016-12-25] MEDS: NS + KCL 20 MEQ INJ 1,000 ML IV SCH (06:22)
[2016-12-25] MEDS: MIDODRINE 5 MG TAB PO SCH ×2 (06:22→12:00)
[2016-12-25] MEDS: INSULIN ASPART SUPPLEMENTAL SCALE SQ SCH ×2 (06:23→11:00)
[2016-12-25 08:00] VITALS: BP 114/75; PULSE 45; RESP 17; TEMP 97.7; O2SAT 100
--- NOTE | 2016-12-25 08:43 | EKG ---
Date Performed: 12/23/2016 Time Performed: 12:02:01 PTAGE: 76 years EKG: Sinus rhythm WITH 2ND DEGREE AV BLOCK, MOBITZ TYPE II LOW QRS VOLTAGE IN EXTREMITY LEADS ABNORMAL ECG INTERPRETAT ION BASED ON A DEFAULT AGE OF 39 YEARS NO PREVIOUS TRACING DOCTOR: Katiuska Leiva Interpretating Date/Time 12/25/2016 08:41:00
[2016-12-25] MEDS: ROSUVASTATIN 10 MG PO SCH (09:00)
[2016-12-25] MEDS: SODIUM CHLORIDE 0.9% FLUSH 10 ML FLUSH IV FLUSH SCH (09:36)
[2016-12-25] MEDS: cefTRIAXone INJ 1,000 MG in SODIUM CHLORIDE 0.9% INJ 100 ML IV SCH (09:36)
[2016-12-25] MEDS: PYRIDOXINE HCL 50 MG TAB PO SCH (09:37)
[2016-12-25] MEDS: LEVOTHYROXINE SODIUM 100 MCG TAB PO SCH (09:37)
[2016-12-25] MEDS: CHOLECALCIFEROL (VIT D3) 1000 UNIT TAB PO SCH (09:37)
[2016-12-25] MEDS: ASPIRIN EC 81 MG TABEC PO SCH (09:37)
--- NOTE | 2016-12-25 10:31 | HHI.PR ---
Subjective Remarks Follow-up hypotension 12/24/16-patient seen and examined, alert and oriented 3. BP this AM improving however still soft. Afebrile and tolerated by mouth without any complication nausea and vomiting. by the bedside. 12/25/16-patient seen and examined, BP improving and no acute event overnight. Patient was up and ambulating with PT this morning Objective Vitals Vital Signs Date Time Temp Pulse Resp B/P Pulse Ox O2 Delivery O2 Flow Rate FiO2 12/25/16 08:00 97.7 45 17 114/75 100 12/25/16 00:00 95.5 57 16 103/66 97 12/24/16 20:00 97.4 63 18 99/71 95 12/24/16 17:18 96.6 71 16 114/73 99 12/24/16 12:00 96.4 60 16 97/60 100 I/O 12/24/16 12/24/16 12/24/16 12/25/16 12/25/16 12/25/16 06:59 14:59 22:59 06:59 14:59 22:59 Intake Total 1080 ml 460 ml Balance 1080 ml 460 ml Intake Oral 1080 ml 460 ml # Voids 2 4 2 # Bowel Movements 1 1 1 Result Diagram: 12/24/16 1020 12/24/16 1020 Objective Remarks GENERAL: NAD and sitting by the chair SKIN: Warm and dry. HEAD: Normocephalic. EYES: No scleral icterus. No injection or drainage. NECK: Supple, trachea midline. No JVD or lymphadenopathy. CARDIOVASCULAR: Regular rate and rhythm without murmurs, gallops, or rubs. RESPIRATORY: Breath sounds equal bilaterally. No accessory muscle use. GASTROINTESTINAL: Abdomen soft, non-tender, nondistended. MUSCULOSKELETAL: No cyanosis, or edema. BACK: Nontender without obvious deformity. No CVA tenderness. Procedures none A/P Problem List: (1) Hypotension, unspecified ICD Code: I95.9 Status: Acute (2) Acute renal failure superimposed on stage 3 chronic kidney disease ICD Code: N17.9 Status: Acute (3) Hypokalemia ICD Code: E87.6 Status: Resolved (4) Abnormal urinalysis ICD Code: R82.90 Status: Acute (5) DM type 2 (diabetes mellitus, type 2) ICD Code: E11.9 Status: Chronic (6) Dementia ICD Code: F03.90 Status: Acute Assessment and Plan 76-year-old man with Hypotension H&H stable and fecal occult blood test negative Status post 2 L NS boluses in ED, continue with IV fluid hydration Continue midodrine 5 mg by mouth 3 times a day and discontinue all oral hypertensive medications at this time Abnormal UA Currently on Rocephin however urine culture negative therefore will discontinue antibiotics Hypokalemia Replace electrolytes, continue with IV fluid with K Acute on chronic kidney disease stage III Improving and BMP pending this a.m. Gentle IV fluid hydration Avoid all nephrotoxic drugs, monitor BUN and creatinine Patient to follow outpatient with nephrology Diabetes type 2 Hold home regiment, continue insulin sliding scale Dementia Continue outpatient medication PT to treat and eval DVT prophylaxis Subcutaneous heparin Jamin Back MD Dec 25, 2016 10:31
--- NOTE | 2016-12-25 11:35 | HHI.FF ---
Face to Face Verification Diagnosis: (1) Hypotension, unspecified (2) Hypokalemia (3) Dementia Physical Therapy Order: Evaluate and Treat Occupational Therapy Order: Evaluate and Treat Home Health Nursing Order: Signs/symptoms of disease process I have seen patient Pepe Zepeda on 12/25/16. My clinical findings support the need for the requested home health care services because: Deconditioned w/ increased weakness I certify that my clinical findings support that this patient is homebound because: Poor cardiac reserve Jamin Back MD Dec 25, 2016 11:35
[2016-12-25] MEDS ORDERED: MIDO5TAB PO (11:36)
--- NOTE | 2016-12-25 11:40 | HHI.DS ---
Discharge Summary Admission Date Dec 23, 2016 at 13:45 Discharge Date: Dec 25, 2016 Admitting Diagnosis ARF, hypokalemia, UTI (1) Hypotension, unspecified ICD Code: I95.9 (2) Acute renal failure superimposed on stage 3 chronic kidney disease ICD Code: N17.9 (3) Hypokalemia ICD Code: E87.6 (4) Abnormal urinalysis ICD Code: R82.90 (5) DM type 2 (diabetes mellitus, type 2) ICD Code: E11.9 (6) Dementia ICD Code: F03.90 Procedures none Brief History - From Admission 76 year-old male with a history of dementia, hypertension, diabetes type 2 was brought to the ED for evaluation for low BP with a systolic of 77 this morning. History is mostly obtained from patient's , who states since patient was discharged from rehabilitation she has been monitoring his blood pressure twice a day and he usually has a systolic of 100. For the past 7-10 days, all oral antihypertensive medications have been held due to low BP. There is no report of any GI bleed patient has a negative fecal occult blood test in the ED. Secondary to worsening renal functions, patient was seen by his market research worker last week. Per patient's , on 12/22/16 patient was feeling weak. He has no complaint of chest pain. CBC/BMP: 12/24/16 1020 12/24/16 1020 Significant Findings Laboratory Tests Test 12/23/16 12/24/16 12:15 10:20 Red Blood Count 3.78 MIL/MM3 3.27 MIL/MM3 (4.50-5.90) (4.50-5.90) Hemoglobin 11.0 GM/DL 10.0 GM/DL (13.0-17.0) (13.0-17.0) Hematocrit 34.1 % 29.7 % (39.0-51.0) (39.0-51.0) Neutrophils (%) (Auto) 70.5 % 70.6 % (16.0-70.0) (16.0-70.0) Monocytes (%) (Auto) 9.6 % (0.0-8.0) 8.7 % (0.0-8.0) Urine Color DARK-YELLOW (YELLW/STRAW) Urine Ketones 15 mg/dL (NEG) Urine Occult Blood SMALL (NEG) Urine WBC 15-19 /hpf (0-5) Urine WBC Clumps MOD (NONE) Urine Hyaline Casts 6-9 /lpf (RARE) Potassium Level 2.8 MEQ/L 3.1 MEQ/L (3.5-5.1) (3.5-5.1) Chloride Level 94 MEQ/L (98-107) Anion Gap 16 MEQ/L (5-15) Blood Urea Nitrogen 32 MG/DL (7-18) 24 MG/DL (7-18) Creatinine 3.40 MG/DL 1.80 MG/DL (0.60-1.30) (0.60-1.30) Estimat Glomerular Filtration 18 ML/MIN (>89) 37 ML/MIN (>89) Rate Random Glucose 111 MG/DL 139 MG/DL (74-106) (74-106) Lymphocytes # (Auto) 0.9 TH/MM3 (1.0-4.8) Calcium Level 8.2 MG/DL (8.5-10.1) Aspartate Amino Transf 13 U/L (15-37) (AST/SGOT) Total Protein 5.6 GM/DL (6.4-8.2) Albumin 2.9 GM/DL (3.4-5.0) PE at Discharge GENERAL: NAD and sitting by the chair SKIN: Warm and dry. HEAD: Normocephalic. EYES: No scleral icterus. No injection or drainage. NECK: Supple, trachea midline. No JVD or lymphadenopathy. CARDIOVASCULAR: Regular rate and rhythm without murmurs, gallops, or rubs. RESPIRATORY: Breath sounds equal bilaterally. No accessory muscle use. GASTROINTESTINAL: Abdomen soft, non-tender, nondistended. MUSCULOSKELETAL: No cyanosis, or edema. BACK: Nontender without obvious deformity. No CVA tenderness. Hospital Course Patient admitted secondary to hypotension for which will antihypertensive medication were held and subsequently discontinued. Patient was started on IV fluid with some modest improvement of BP. Midodrine 5 mg daily 3 times a day was initiated with improvement of BP. Renal function improved with IV fluid hydration. He was initially treated abnormal UA with IV Rocephin however this was discontinued as urine culture was negative. All electrolyte abnormalities including hypokalemia were replaced accordingly. Physical therapy was consulted. DVT and GI prophylaxis were provided. Prior to discharge, patient' s condition improved and vitals remained stable. Pt Condition on Discharge: Stable Discharge Disposition: Discharge to SNF Discharge Time: > 30 minutes Discharge Instructions DIET: Follow Instructions for: Heart Healthy Diet, Diabetic Diet Activities you can perform: Regular-No Restrictions Follow up Referrals: PCP Follow-up - 1 Week New Medications: Midodrine (Midodrine) 5 Mg Tab 5 MG PO TID@07,12,17 Blood Pressure Management #90 Ref 3 TAB Continued Medications: Aspirin DR (Aspirin 81) 81 Mg Tabdr 81 MG PO DAILY Ref 0 TAB Cholecalciferol (Vitamin D-3) 2,000 Unit Tab 1 TAB PO DAILY Cyanocobalamin (Vitamin B12) 500 Mcg Tab 500 MCG PO DAILY #1 BOTTLE Donepezil (Donepezil) 5 Mg Tab 5 MG PO HS Dementia #30 Ref 0 TAB Ipratropium Nasal (Ipratropium Nasal) 0.03% [place] Levothyroxine (Levothyroxine) 100 Mcg Tab 100 MCG PO DAILY Thyroid #30 Ref 0 TAB Metformin (Metformin) 1,000 Mg Tab 1000 MG PO BIDPC With meals Blood Sugar Management #60 Ref 0 TAB Multiple Vitamins W/ Minerals (Centrum Silver Adult 50+) 1 Tab Tab 1 TAB PO DAILY Pyridoxine (Vitamin B-6) 100 Mg Tab 100 MG PO DAILY Nutritional Supplement #30 Ref 0 TAB Rosuvastatin (Crestor) 10 Mg Tab 10 MG PO DAILY Cholesterol Management #30 Ref 0 TAB Discontinued Medications: Losartan (Losartan) 50 Mg Tab 50 MG PO DAILY Blood Pressure Management #30 Ref 0 TAB Jamin Back MD Dec 25, 2016 11:40
[2016-12-25 12:00] VITALS: BP 109/80; PULSE 51; RESP 17; TEMP 97.9; O2SAT 97
[2016-12-25 12:47] LABS: POTASSIUM 3.9 MEQ/L (3.5-5.1)
[2016-12-25 12:50] LABS: BICARBONATE 24.4 MEQ/L (21.0-32.0)
== END 2016-12-25 13:22 | disposition home or self-care (01) | DRG 683 ==
LOC: PHED 12:00 → PHEDA 13:45 → PH3B 15:36
PROVIDERS: ADMIT Hospitalist; ATTEND Hospitalist
DX: N17.9 Acute kidney failure, unspecified (principal); N39.0 Urinary tract infection, site not specified; E11.22 Type 2 diabetes mellitus with diabetic chronic kidney disease; I95.9 Hypotension, unspecified; F03.90 Unspecified dementia, unspecified severity, without behavioral disturbance, psychotic disturbance, mood disturbance, and anxiety; J45.909 Unspecified asthma, uncomplicated; K21.9 Gastro-esophageal reflux disease without esophagitis; E87.6 Hypokalemia; J45.20 Mild intermittent asthma, uncomplicated; E78.5 Hyperlipidemia, unspecified; G89.29 Other chronic pain; M54.5 Low back pain; E03.9 Hypothyroidism, unspecified; I12.9 Hypertensive chronic kidney disease with stage 1 through stage 4 chronic kidney disease, or unspecified chronic kidney disease; N18.3 Chronic kidney disease, stage 3 (moderate); Z79.01 Long term (current) use of anticoagulants; Z79.84 Long term (current) use of oral hypoglycemic drugs
CPT/HCPCS: 80048; 80053; 81001; 82948; 83735; 85025; 87086; 93005; J0696; J3480; J7030

== ENCOUNTER → 2017-02-04 | Outpatient (CLI) | payer MEDICARE, BC ==
[~2017-02-04] MED LIST changes: -AMLO10TA2 PO; -CETI1TAB18 PO; -HYDR25TA5 PO; +IPRA0.03; -IPRA0.03 NASAL; +LEVO100T5 PO; -LEVO125T4 PO; -MAGN500T4 PO; +MIDO5TAB PO; -OXYC1TAB36 PO; -VITA100T2 PO
--- NOTE | 2017-02-04 11:06 | RADRPT ---
EXAM DATE/TIME: 02/04/2017 10:36 [facility] COMPARISON: No previous studies available for comparison. INDICATIONS : Dysphagia FLUORO TIME: 1.2 minutes IMAGE COUNT: 0 CONTRAST: Dose as prescribed by speech pathologist. MEDICAL HISTORY : None. SURGICAL HISTORY : None. ENCOUNTER: Initial ACUITY: 2 months PAIN SCORE: Non-responsive. LOCATION: Bilateral esophagus FINDINGS: A modified barium swallow was performed with speech pathology. Patient was given a variety of liquids to swallow. Swallowing mechanism is intact without evidence of aspiration. For a full detailed report, see report by the speech pathologist. CONCLUSION: Normal examination. Reyes Israel MD on February 04, 2017 at 11:04 Board Certified Radiologist. This report was verified electronically.
== END ==
LOC: HRAD 10:31
PROVIDERS: ATTEND Specialist
DX: R13.10 Dysphagia, unspecified (principal)
CPT/HCPCS: 74230; 92611; G8996; G8997; G8998

== ENCOUNTER → 2017-03-27 | Outpatient (CLI) | payer MEDICARE, BC ==
[2017-03-27 13:40] LABS: AUTOMATED NEUTROPHIL # 3.3 TH/MM3 (1.8-7.7); BASOPHIL # 0.1 TH/MM3 (0-0.2); BASOPHIL % 1.4 % (0.0-2.0); EOSINOPHIL # 0.1 TH/MM3 (0-0.4); EOSINOPHIL % 1.8 % (0.0-4.0); HEMATOCRIT 29.5 % (39.0-51.0); HEMO FLAGS DIFF FINAL; LYMPH % 28.9 % (9.0-44.0); LYMPHOCYTE # 1.6 TH/MM3 (1.0-4.8); MEAN CELL VOLUME 91.7 FL (80.0-100.0); MEAN CORPUSCULAR HEMOGLOBIN 30.4 PG (27.0-34.0); MEAN CORPUSCULAR HGB CONC 33.1 % (32.0-36.0); NEUT % 60.9 % (16.0-70.0); PLATELET COUNT 322 TH/MM3 (150-450); RED BLOOD COUNT 3.22 MIL/MM3 (4.50-5.90); WHITE BLOOD COUNT 5.4 TH/MM3 (4.0-11.0)
[2017-03-27 13:56] LABS: ANION GAP 9 MEQ/L (5-15); BICARBONATE 27.1 MEQ/L (21.0-32.0); BLOOD UREA NITROGEN 12 MG/DL (7-18); CHLORIDE 107 MEQ/L (98-107); GLOMERULAR FILTRATION RATE 44 ML/MIN (>89); GLUCOSE,FASTING 86 MG/DL (74-99); POTASSIUM 3.8 MEQ/L (3.5-5.1); SODIUM (NA) 143 MEQ/L (136-145)
[2017-03-27 20:21] LABS: HEMOGLOBIN A1a 1.3 %; HEMOGLOBIN A1b 1.7 %; HEMOGLOBIN Ao 85.8 %; HEMOGLOBIN LA1C 1.7 %; HEMOGLOBIN P3 3.5 %
== END ==
LOC: PLAB 09:24
PROVIDERS: ATTEND Family Medicine
DX: D64.9 Anemia, unspecified (principal); E11.9 Type 2 diabetes mellitus without complications; R63.4 Abnormal weight loss; N18.4 Chronic kidney disease, stage 4 (severe); E03.9 Hypothyroidism, unspecified; E78.5 Hyperlipidemia, unspecified; I10 Essential (primary) hypertension; E55.9 Vitamin D deficiency, unspecified
CPT/HCPCS: 36415; 80048; 83036; 84443; 85025

== ENCOUNTER → 2017-04-19 | Outpatient (CLI) | payer MEDICARE, BC ==
[2017-04-19 13:25] LABS: AUTOMATED NEUTROPHIL # 4.4 TH/MM3 (1.8-7.7); BASOPHIL # 0.1 TH/MM3 (0-0.2); BASOPHIL % 1.2 % (0.0-2.0); EOSINOPHIL # 0.1 TH/MM3 (0-0.4); EOSINOPHIL % 1.9 % (0.0-4.0); HEMO FLAGS DIFF FINAL; LYMPH % 22.4 % (9.0-44.0); LYMPHOCYTE # 1.5 TH/MM3 (1.0-4.8); MEAN CELL VOLUME 91.5 FL (80.0-100.0); MEAN CORPUSCULAR HGB CONC 33.9 % (32.0-36.0); MONO % 7.4 % (0.0-8.0); NEUT % 67.1 % (16.0-70.0); PLATELET COUNT 304 TH/MM3 (150-450); RED BLOOD COUNT 3.06 MIL/MM3 (4.50-5.90); RED CELL DISTRIBUTION WIDTH 15.6 % (11.6-17.2); WHITE BLOOD COUNT 6.6 TH/MM3 (4.0-11.0)
[2017-04-19 13:36] LABS: FERRITIN 313 NG/ML (26-388); TRANSFERRIN IRON PROFILE 159 MG/DL (200-360)
== END ==
LOC: PLAB 09:20
PROVIDERS: ATTEND Internal Medicine Gastroenterology
DX: D64.9 Anemia, unspecified (principal)
CPT/HCPCS: 36415; 82728; 83540; 83550; 85025

== ENCOUNTER → 2017-05-21 | Outpatient (CLI) | payer MEDICARE, BC ==
[~2017-05-21] MED LIST changes: -ASPI-110 PO; +ASPI1TAB57 PO; +VITA500T35 PO; -VITA500T49 PO
[2017-05-21 10:31] LABS: AUTOMATED NEUTROPHIL # 3.3 TH/MM3 (1.8-7.7); BASOPHIL # 0.1 TH/MM3 (0-0.2); EOSINOPHIL # 0.2 TH/MM3 (0-0.4); EOSINOPHIL % 3.3 % (0.0-4.0); HEMATOCRIT 30.5 % (39.0-51.0); HEMO FLAGS DIFF FINAL; LYMPH % 24.4 % (9.0-44.0); LYMPHOCYTE # 1.3 TH/MM3 (1.0-4.8); MEAN CELL VOLUME 90.5 FL (80.0-100.0); MEAN CORPUSCULAR HEMOGLOBIN 29.9 PG (27.0-34.0); MEAN CORPUSCULAR HGB CONC 33.1 % (32.0-36.0); MONO % 8.2 % (0.0-8.0); NEUT % 63.1 % (16.0-70.0); PLATELET COUNT 291 TH/MM3 (150-450); RED BLOOD COUNT 3.37 MIL/MM3 (4.50-5.90); RED CELL DISTRIBUTION WIDTH 14.5 % (11.6-17.2); WHITE BLOOD COUNT 5.2 TH/MM3 (4.0-11.0)
[2017-05-21 10:42] LABS: ANION GAP 8 MEQ/L (5-15); BICARBONATE 27.3 MEQ/L (21.0-32.0); BLOOD UREA NITROGEN 14 MG/DL (7-18); CHLORIDE 104 MEQ/L (98-107); GLOMERULAR FILTRATION RATE 54 ML/MIN (>89); GLUCOSE,FASTING 90 MG/DL (74-99); POTASSIUM 3.9 MEQ/L (3.5-5.1); SODIUM (NA) 139 MEQ/L (136-145)
[2017-05-21 10:43] LABS: TRANSFERRIN IRON PROFILE 226 MG/DL (200-360)
[2017-05-21 14:35] LABS: HEMOGLOBIN A1a 1.1 %; HEMOGLOBIN A1b 1.5 %; HEMOGLOBIN Ao 86.6 %; HEMOGLOBIN LA1C 1.9 %; HEMOGLOBIN P3 3.5 %
== END ==
LOC: PLAB 08:07
PROVIDERS: ATTEND Internal Medicine Nephrology
DX: I12.9 Hypertensive chronic kidney disease with stage 1 through stage 4 chronic kidney disease, or unspecified chronic kidney disease (principal); N18.3 Chronic kidney disease, stage 3 (moderate); E11.22 Type 2 diabetes mellitus with diabetic chronic kidney disease; E55.9 Vitamin D deficiency, unspecified
CPT/HCPCS: 36415; 80069; 82306; 82533; 83036; 83540; 83550; 83970; 85025

== ENCOUNTER → 2017-06-06 | Outpatient (CLI) | payer MEDICARE, BC ==
[2017-06-06 11:58] LABS: AUTOMATED NEUTROPHIL # 3.7 TH/MM3 (1.8-7.7); BASOPHIL # 0.1 TH/MM3 (0-0.2); BASOPHIL % 1.5 % (0.0-2.0); EOSINOPHIL # 0.2 TH/MM3 (0-0.4); EOSINOPHIL % 2.9 % (0.0-4.0); HEMATOCRIT 31.3 % (39.0-51.0); HEMO FLAGS DIFF FINAL; LYMPH % 24.9 % (9.0-44.0); LYMPHOCYTE # 1.4 TH/MM3 (1.0-4.8); MEAN CELL VOLUME 90.1 FL (80.0-100.0); MEAN CORPUSCULAR HGB CONC 33.4 % (32.0-36.0); MONO % 6.3 % (0.0-8.0); NEUT % 64.4 % (16.0-70.0); PLATELET COUNT 273 TH/MM3 (150-450); RED BLOOD COUNT 3.48 MIL/MM3 (4.50-5.90); WHITE BLOOD COUNT 5.7 TH/MM3 (4.0-11.0)
== END ==
LOC: PLAB 08:26
PROVIDERS: ATTEND Family Medicine
DX: E03.9 Hypothyroidism, unspecified (principal); Z86.2 Personal history of diseases of the blood and blood-forming organs and certain disorders involving the immune mechanism
CPT/HCPCS: 36415; 84443; 85025

== ENCOUNTER 2017-06-27 12:50 | Emergency (ER) | payer MEDICARE, BC ==
[~2017-06-27] VITALS: Ht 185.4 cm; Wt 81.6 kg
[2017-06-27 12:56] VITALS: BP 146/65; PULSE 64; RESP 18; TEMP 98; O2SAT 100
[2017-06-27] MEDS ORDERED: iron (13:21)
[2017-06-27] MEDS ORDERED: VITA100T10 (13:21)
[2017-06-27] MEDS ORDERED: GLUC500T4 PO (13:21)
[2017-06-27] MEDS ORDERED: D 50CAP2 PO (13:21)
[2017-06-27] MEDS ORDERED: CETI10 PO (13:21)
[2017-06-27] MEDS ORDERED: CULT10CA4 PO (13:21)
[2017-06-27] MEDS ORDERED: CYAN1TAB24 (13:21)
[2017-06-27] MEDS ORDERED: CENTCHW4 CHEW (13:21)
--- NOTE | 2017-06-27 13:27 | PD ---
HPI Chief Complaint: Complaint Time Seen by Provider: 13:03 Travel History International Travel<30 days: No Contact w/Intl Traveler<30days: No Traveled to known affect area: No History of Present Illness HPI This 76-year-old male is brought by his . She is concerned that he might have a urinary tract infection. He has a history of dementia. The last few days he's been seeing writing on the joy. In the past this isn't a symptom of urinary tract infection she is not aware of fever. There is been no vomiting. There is no complaint of pain. The patient has no complaint of dysuria. He has seen Dr. Alas in the past for prostate issues PFSH Past Medical History Hx Anticoagulant Therapy: Yes (BABY ASA DAILY) Arthritis: Yes Asthma: Yes Autoimmune Disease: No Anxiety: No Depression: No Heart Rhythm Problems: No Cancer: No Cardiovascular Problems: Yes (CHOL) High Cholesterol: Yes Chest Pain: No Congestive Heart Failure: No COPD: No Cerebrovascular Accident: No Dementia: Yes Diabetes: Yes Endocrine: Yes Gastrointestinal Disorders: Yes GERD: Yes Genitourinary: Yes Hiatal Hernia: Yes Hypertension: Yes Kidney Stones: No Musculoskeletal: Yes (DDD) Neurologic: Yes Psychiatric: No Reproductive: No Respiratory: Yes Migraines: No Renal Failure: No Seizures: No Sleep Apnea: No Thyroid Disease: Yes Ulcer: Yes (WHEN YOUNGER) Past Surgical History Abdominal Surgery: Yes (HERNIA, GALLBLADDER) Cardiac Surgery: No Cholecystectomy: Yes Endocrine Surgery: No Eye Surgery: Yes (BILATERAL CATARACT) Genitourinary Surgery: Yes (VASECTOMY) Joint Replacement: No Oral Surgery: Yes (CLEFT LIP AND PALATE/NOSE) Pacemaker: No Thoracic Surgery: No Tonsillectomy: Yes Other Surgery: Yes (HIP SURGERY) Social History Alcohol Use: Yes (1/2-1 cup liqor most days) Tobacco Use: No Substance Use: No Allergies-Medications (Allergen,Severity, Reaction): Coded Allergies: atorvastatin (Unverified Allergy, Unknown, pt does not know he is allergic to this, 06/27/17) fluticasone (Unverified Adverse Reaction, Unknown, pt does not know he is allergic to this, 06/27/17) fluticasone furoate (Unverified Adverse Reaction, Unknown, pt does not know he is allergic to this, 06/27/17) salmeterol (Unverified Adverse Reaction, Unknown, pt does not know he is allergic to this, 06/27/17) Reported Meds & Prescriptions Reported Meds & Active Scripts Active Midodrine 5 Mg Tab 5 Mg PO TID@ Reported Cetirizine (Cetirizine HCl) 10 Mg Tab 10 Mg PO DAILY B12 (Cyanocobalamin) 1,000 Mcg Tab [iron] 65 Mg D3 Maximum Strength (Cholecalciferol) 5,000 Unit Cap 2,000 Units PO DAILY B6 Natural (Pyridoxine HCl) 100 Mg Tab Glucosamine-Chondroitin 500-400 Mg Tab 1 Tab PO DAILY Culturelle (Lactobacillus Rhamnosus (GG)) 10 Billion Cell Cap 1 Cap PO DAILY Centrum (Multiple Vitamins W/ Minerals) 1 Chew 1 Tab CHEW DAILY Levothyroxine (Levothyroxine Sodium) 100 Mcg Tab 100 Mcg PO DAILY Donepezil 5 Mg Tab 5 Mg PO HS Aspirin 81 (Aspirin) 81 Mg Tabdr 81 Mg PO DAILY Crestor (Rosuvastatin Calcium) 10 Mg Tab 10 Mg PO DAILY Review of Systems General / Constitutional: No: Fever, Chills Eyes: No: Diploplia, Blurred Vision HENT: No: Headaches Cardiovascular: No: Chest Pain or Discomfort, Palpitations Respiratory: No: Cough, Shortness of Breath Gastrointestinal: No: Vomiting, Diarrhea Genitourinary: No: Urgency, Frequency Musculoskeletal: No: Myalgias, Arthralgias Skin: No Rash, No Itching Neurologic: No: Weakness, Dizziness Endocrine: No: Cold Intolerance Hematologic/Lymphatic: No: Easy Bruising Physical Exam Narrative GENERAL: Female SKIN: Focused skin assessment warm/dry. HEAD: Atraumatic. Normocephalic. EYES: Pupils equal and round. No scleral icterus. No injection or drainage. ENT: No nasal bleeding or discharge. Mucous membranes pink and moist. NECK: Trachea midline. No JVD. CARDIOVASCULAR: Regular rate and rhythm. No murmur appreciated. RESPIRATORY: No accessory muscle use. Clear to auscultation. Breath sounds equal bilaterally. GASTROINTESTINAL: Abdomen soft, non-tender, nondistended. Hepatic and splenic margins not palpable. MUSCULOSKELETAL: No obvious deformities. No clubbing. No cyanosis. No edema. NEUROLOGICAL: Awake and alert. No obvious cranial nerve deficits. Motor grossly within normal limits. Normal speech. PSYCHIATRIC: Appropriate mood and affect; insight and judgment limited Data Data Last Documented VS Vital Signs Date Time Temp Pulse Resp B/P (MAP) Pulse Ox O2 Delivery O2 Flow Rate FiO2 06/27/17 12:56 98.0 64 18 146/65 (92) 100 Orders Orders Urinalysis - C+S If Indicated (06/27/17 12:53) Labs Laboratory Tests Test 06/27/17 13:21 Urine Color STRAW Urine Turbidity CLEAR Urine pH 6.0 Urine Specific [place] 1.017 Urine Protein NEG mg/dL Urine Glucose (UA) NEG mg/dL Urine Ketones NEG mg/dL Urine Occult Blood NEG Urine Nitrite NEG Urine Bilirubin NEG Urine Leukocyte Esterase MOD Urine RBC 0-3 /hpf Urine WBC 3-5 /hpf Urine Squamous Epithelial Cells 0-5 /hpf Urine Transitional Epithelial Cells 0-5 /hpf Urine Bacteria OCC /hpf Microscopic Urinalysis Comment CULT NOT INDICATED MDM Medical Decision Making Medical Screen Exam Complete: Yes Emergency Medical Condition: Yes Medical Record Reviewed: Yes Differential Diagnosis Differential includes hallucinations, delirium, UTI Narrative Course Urine shows 3-5 white cells. I don't think this warrants antibiotics. Patient is having some hallucinations which she has had in the past related to his dementia. He will be released Diagnosis Primary Impression: Dementia Disposition: 01 DISCHARGE HOME Condition: Stable Derrick Ibarra MD Jun 27, 2017 13:27
[2017-06-27 13:29] LABS: BILIRUBIN, URINE NEG (NEG); BLOOD, URINE NEG (NEG); GLUCOSE,URINE NEG (NEG); KETONE, URINE NEG (NEG); NITRITE,URINE NEG (NEG); URINE LEUKOCYTE ESTERASE MOD (NEG)
[2017-06-27 13:35] LABS: URINE COLOR STRAW (YELLW/STRAW)
[2017-06-27 13:36] LABS: BACTERIA, URINE OCC /hpf; RBC, URINE 0-3 /hpf (0-3); SQUAMOUS EPITHELIAL CELL URINE 0-5 /hpf (0-5); TRANSITIONAL EPI CELLS, URINE 0-5 /hpf
== END 2017-06-27 14:14 | disposition home or self-care (01) ==
LOC: PHED 12:50
DX: F03.90 Unspecified dementia, unspecified severity, without behavioral disturbance, psychotic disturbance, mood disturbance, and anxiety (principal); I10 Essential (primary) hypertension; E78.00 Pure hypercholesterolemia, unspecified; E11.9 Type 2 diabetes mellitus without complications; J45.909 Unspecified asthma, uncomplicated; K21.9 Gastro-esophageal reflux disease without esophagitis; Z88.8 Allergy status to other drugs, medicaments and biological substances; Z79.82 Long term (current) use of aspirin; Z79.899 Other long term (current) drug therapy
CPT/HCPCS: 81001; 99283

== ENCOUNTER 2017-07-30 06:25 | Inpatient (IN) | payer MEDICARE, BC, OTHER ==
[~2017-07-30] VITALS: Ht 185.4 cm; Wt 55.0 kg
[~2017-07-30 06:25] MED LIST changes: +CENTCHW4 CHEW; +CETI10 PO; -CHOL1TAB42 PO; +CULT10CA4 PO; +CYAN1TAB24; +D 50CAP2 PO; +GLUC500T4 PO; -IPRA0.03; -METF1000 PO; -MULT1TAB PO; -PYRI100T PO; +VITA100T10; -VITA500T35 PO; +iron
[2017-07-30 06:41] VITALS: BP 165/75; PULSE 62; RESP 18; TEMP 98.2; O2SAT 100
--- NOTE | 2017-07-30 06:53 | PD ---
HPI Chief Complaint: Psychiatric Symptoms Time Seen by Provider: 06:35 Travel History International Travel<30 days: No Contact w/Intl Traveler<30days: No Traveled to known affect area: No History of Present Illness HPI 77-year-old white male presents to emergency department under [place] act by PD. The patient allegedly had accused his of trying to poison him. He had been increasingly agitated and then grabbed his 's arm and would not let go. According to the medical record the patient was seen in the ER last month for possible UTI. His urine was negative and emergency room doctor felt his presentation most likely secondary to his dementia. The patient here is alert but pleasantly confused at times. He does contend that his is trying to poison him. He does not understand why he is here today. He has no medical complaints. He denies any toxic ingestions. No suicidal or homicidal ideation. PFSH Past Medical History Hx Anticoagulant Therapy: Yes (BABY ASA DAILY) Arthritis: Yes Asthma: Yes Autoimmune Disease: No Anxiety: No Depression: No Heart Rhythm Problems: No Cancer: No Cardiovascular Problems: Yes (CHOL) High Cholesterol: Yes Chest Pain: No Congestive Heart Failure: No COPD: No Cerebrovascular Accident: No Dementia: Yes Diabetes: Yes Diminished Hearing: No Endocrine: Yes Gastrointestinal Disorders: Yes GERD: Yes Genitourinary: Yes Hiatal Hernia: Yes Hypertension: Yes Kidney Stones: No Musculoskeletal: Yes (DDD) Neurologic: Yes Psychiatric: No Reproductive: No Respiratory: Yes Migraines: No Renal Failure: No Seizures: No Sleep Apnea: No Thyroid Disease: Yes Ulcer: Yes (WHEN YOUNGER) Past Surgical History Abdominal Surgery: Yes (HERNIA, GALLBLADDER) Cardiac Surgery: No Cholecystectomy: Yes Endocrine Surgery: No Eye Surgery: Yes (BILATERAL CATARACT) Genitourinary Surgery: Yes (VASECTOMY) Joint Replacement: No Oral Surgery: Yes (CLEFT LIP AND PALATE/NOSE) Pacemaker: No Thoracic Surgery: No Tonsillectomy: Yes Other Surgery: Yes (HIP SURGERY) Social History Alcohol Use: No (previous use) Tobacco Use: No Substance Use: No Allergies-Medications (Allergen,Severity, Reaction): Coded Allergies: atorvastatin (Unverified Allergy, Unknown, pt does not know he is allergic to this, 06/27/17) fluticasone (Unverified Adverse Reaction, Unknown, pt does not know he is allergic to this, 06/27/17) fluticasone furoate (Unverified Adverse Reaction, Unknown, pt does not know he is allergic to this, 06/27/17) salmeterol (Unverified Adverse Reaction, Unknown, pt does not know he is allergic to this, 06/27/17) Reported Meds & Prescriptions Reported Meds & Active Scripts Active Midodrine 5 Mg Tab 5 Mg PO TID@ Reported Cetirizine (Cetirizine HCl) 10 Mg Tab 10 Mg PO DAILY B12 (Cyanocobalamin) 1,000 Mcg Tab [iron] 65 Mg D3 Maximum Strength (Cholecalciferol) 5,000 Unit Cap 2,000 Units PO DAILY B6 Natural (Pyridoxine HCl) 100 Mg Tab Glucosamine-Chondroitin 500-400 Mg Tab 1 Tab PO DAILY Culturelle (Lactobacillus Rhamnosus (GG)) 10 Billion Cell Cap 1 Cap PO DAILY Centrum (Multiple Vitamins W/ Minerals) 1 Chew 1 Tab CHEW DAILY Levothyroxine (Levothyroxine Sodium) 100 Mcg Tab 100 Mcg PO DAILY Donepezil 5 Mg Tab 5 Mg PO HS Aspirin 81 (Aspirin) 81 Mg Tabdr 81 Mg PO DAILY Crestor (Rosuvastatin Calcium) 10 Mg Tab 10 Mg PO DAILY Review of Systems ROS Limitations: Poor Historian Physical Exam Narrative GENERAL: Well-nourished, well-developed patient. Patient mumbles and is hard to understand at times due to lack of teeth SKIN: Warm and dry. Patient has some scaly dermatitis HEAD: Normocephalic and atraumatic. EYES: No scleral icterus. Positive injection but no drainage. ENT: No nasal drainage noted. Mucous membranes pink. Airway patent. NECK: Supple, trachea midline. Moves head freely without obvious discomfort. CARDIOVASCULAR: Regular rate and rhythm without murmurs, gallops, or rubs. RESPIRATORY: Breath sounds equal bilaterally. No accessory muscle use. GASTROINTESTINAL: Abdomen soft, non-tender, nondistended. EXTREMITIES: No cyanosis or edema. BACK: Nontender without obvious deformity. No CVA tenderness. NEURO: Patient is alert and oriented. no sensorimotor deficits. Nonfocal. Normal speech. PSYCH: Patient is convinced his is trying to poison him. No auditory or visual hallucinations. Patient has poor judgment Data Data Last Documented VS Vital Signs Date Time Temp Pulse Resp B/P (MAP) Pulse Ox O2 Delivery O2 Flow Rate FiO2 07/30/17 06:41 98.2 62 18 165/75 (105) 100 Orders Orders Complete Blood Count With Diff (07/30/17 06:35) Comprehensive Metabolic Panel (07/30/17 06:35) Thyroid Stimulating Hormone (07/30/17 06:35) Urinalysis - C+S If Indicated (07/30/17 06:35) Psych Screen (07/30/17 06:35) Drug Screen, Random Urine (07/30/17 06:35) Alcohol (Ethanol) (07/30/17 06:35) MDM Medical Decision Making Medical Screen Exam Complete: Yes Emergency Medical Condition: Yes Medical Record Reviewed: Yes Differential Diagnosis MDM: High Differential diagnoses: Schizophrenia, schizoaffective disorder, bipolar, anxiety, depression, adjustment reaction, mood disorder NOS, ODD, depressive disorder NOS, dementia, dementia with agitation, psychosis NOS, substance induced mood disorder, DMDD, Asperger syndrome, infection,electrolyte abnormality, malingering. Narrative Course Mental health screening discussed with the patient. Psychiatric screen ordered. The patient has been medically cleared. This is medical clearance for psychiatric admission, dementia The oncoming PA will review the patient's laboratory tests. At this point I do not anticipate any electrolyte abnormalities causing his dementia. Diagnosis Primary Impression: Medical clearance for psychiatric admission Additional Impression: Dementia Qualified Codes: G30.9 - Alzheimer's disease, unspecified; F02.81 - Dementia in other diseases classified elsewhere with behavioral disturbance Condition: Toby Dowling Jul 30, 2017 06:53
[2017-07-30 07:12] LABS: AUTOMATED NEUTROPHIL # 2.9 TH/MM3 (1.8-7.7); BASOPHIL # 0.1 TH/MM3 (0-0.2); BASOPHIL % 2.1 % (0.0-2.0); EOSINOPHIL # 0.2 TH/MM3 (0-0.4); EOSINOPHIL % 3.6 % (0.0-4.0); HEMATOCRIT 33.1 % (39.0-51.0); HEMOGLOBIN 11.1 GM/DL (13.0-17.0); LYMPH % 22.6 % (9.0-44.0); MEAN CORPUSCULAR HEMOGLOBIN 29.1 PG (27.0-34.0); MEAN CORPUSCULAR HGB CONC 33.5 % (32.0-36.0); MEAN PLATELET VOLUME 7.9 FL (7.0-11.0); MONO % 7.4 % (0.0-8.0); MONOCYTE # 0.3 TH/MM3 (0-0.9); NEUT % 64.3 % (16.0-70.0); PLATELET COUNT 237 TH/MM3 (150-450); RED CELL DISTRIBUTION WIDTH 14.8 % (11.6-17.2); WHITE BLOOD COUNT 4.5 TH/MM3 (4.0-11.0)
[2017-07-30 07:29] LABS: ALBUMIN 3.7 GM/DL (3.4-5.0); ALT (GPT) 39 U/L (12-78); AST (GOT) 23 U/L (15-37); BICARBONATE 29.4 MEQ/L (21.0-32.0); BLOOD UREA NITROGEN 18 MG/DL (7-18); CALCIUM 8.7 MG/DL (8.5-10.1); CHLORIDE 104 MEQ/L (98-107); CREATININE 1.41 MG/DL (0.60-1.30); GLOMERULAR FILTRATION RATE 49 ML/MIN (>89); GLUCOSE,RANDOM 107 MG/DL (74-106); SODIUM (NA) 141 MEQ/L (136-145)
[2017-07-30 07:38] LABS: ALKALINE PHOSPHATASE 50 U/L (45-117); TOTAL BILIRUBIN ADULT 0.5 MG/DL (0.2-1.0); TOTAL PROTEIN 6.9 GM/DL (6.4-8.2)
[2017-07-30 08:25] LABS: BILIRUBIN, URINE NEG (NEG); BLOOD, URINE NEG (NEG); GLUCOSE,URINE NEG (NEG); KETONE, URINE NEG (NEG); MUCUS URINE FEW /lpf (OCC); NITRITE,URINE NEG (NEG); SQUAMOUS EPITHELIAL CELL URINE 1 /hpf (0-5); URINE COLOR YELLOW (YELLW/STRAW); URINE LEUKOCYTE ESTERASE LARGE (NEG)
[2017-07-30] MEDS ORDERED: DONE10TA7 PO (11:48)
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
[2017-07-30] MEDS ORDERED: ACETAMINOPHEN 325 MG TAB PO PRN (12:15)
[2017-07-30] MEDS ORDERED: ALUMINUM/MAGNESIUM/SIMETH 30 ML CUP PO PRN (12:15)
[2017-07-30] MEDS ORDERED: MAGNESIUM HYDROXIDE SUSP 30 ML CUP PO PRN (12:15)
[2017-07-30 13:51] VITALS: BP 146/80; PULSE 62; RESP 14; TEMP 97.7; O2SAT 98
[2017-07-30] MEDS ORDERED: GLUCAGON 1 MG/ML VIAL OTHER PRN (14:30)
[2017-07-30] MEDS ORDERED: DEXTROSE 50% IN WATER 50 ML VIAL(D50) IV PUSH PRN (14:30)
[2017-07-30] MEDS: INSULIN ASPART SUPPLEMENTAL SCALE SQ SCH ×2 (17:00→21:00)
[2017-07-30] MEDS: MIDODRINE 5 MG TAB PO SCH (17:00)
[2017-07-31] MEDS: MIDODRINE 5 MG TAB PO SCH ×3 (05:50→17:00)
[2017-07-31] MEDS ORDERED: LEVOTHYROXINE SODIUM 100 MCG TAB PO SCH (06:00)
[2017-07-31] MEDS: INSULIN ASPART SUPPLEMENTAL SCALE SQ SCH ×2 (08:00→11:35)
[2017-07-31] MEDS ORDERED: ROSUVASTATIN 10 MG PO SCH (09:00)
[2017-07-31] MEDS ORDERED: [UNRECOGNIZED DRUG - OTHER] PO SCH (09:00)
[2017-07-31] MEDS: LACTOBACILLUS ACIDOPHILUS TAB PO SCH (09:43)
[2017-07-31] MEDS: ASPIRIN EC 81 MG TABEC PO SCH (09:44)
[2017-07-31] MEDS: CETIRIZINE HCL 10 MG TAB PO SCH (09:44)
--- NOTE | 2017-07-31 09:46 | EKG ---
Date Performed: 07/30/2017 Time Performed: 12:36:18 PTAGE: 77 years EKG: SINUS BRADYCARDIA WITH SHORT SD INTERVAL MODERATE INTRAVENTRICULAR CONDUCTION DELAY BORDERL INE ECG Since the prior tracing, there has been no significant change PREVIOUS TRACING : 12/23/2016 12.02 DOCTOR: Jarvis Viveros Interpretating Date/Time 07/31/2017 09:44:29
[2017-07-31] MEDS ORDERED: LORazepam 1 MG TAB PO PRN (12:00)
[2017-07-31] MEDS ORDERED: MAGNESIUM HYDROXIDE SUSP 30 ML CUP PO PRN (12:00)
[2017-07-31] MEDS ORDERED: LORazepam 2 MG/ML VIAL IM PRN ×3 (12:00→15:15)
[2017-07-31] MEDS ORDERED: ACETAMINOPHEN 325 MG TAB PO PRN (12:00)
[2017-07-31] MEDS ORDERED: LORazepam 0.5 MG TAB PO PRN (12:00)
[2017-07-31] MEDS ORDERED: hydrOXYzine HCL 50 MG TAB PO PRN (12:00)
[2017-07-31] MEDS ORDERED: ALUMINUM/MAGNESIUM/SIMETH 30 ML CUP PO PRN (12:00)
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
[2017-07-31 12:35] LABS: BICARBONATE 31.2 MEQ/L (21.0-32.0); BLOOD UREA NITROGEN 16 MG/DL (7-18); CALCIUM 9.1 MG/DL (8.5-10.1); CHLORIDE 104 MEQ/L (98-107); CREATININE 1.12 MG/DL (0.60-1.30); GLOMERULAR FILTRATION RATE 63 ML/MIN (>89); GLUCOSE,RANDOM 99 MG/DL (74-106); SODIUM (NA) 141 MEQ/L (136-145)
[2017-07-31 13:03] LABS: CHOLESTEROL 163 MG/DL (120-200); CHOLESTEROL/ HDL RATIO 2.05 RATIO; HDL CHOLESTEROL 79.4 MG/DL (40.0-60.0); LDL CHOLESTEROL 74 MG/DL (0-99); TRIGLYCERIDES 50 MG/DL (42-150)
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
[2017-07-31 15:12] LABS: FREE T3 1.74 PG/ML (2.18-3.98); FREE T4 1.11 NG/DL (0.76-1.46)
[2017-07-31 18:08] VITALS: BP 151/88; PULSE 63; RESP 18; TEMP 97.8; O2SAT 100
[2017-07-31] MEDS: REMOVE OLD NICODERM (NICOTINE) PATCH T-DERMAL SCH (20:44)
[2017-07-31] MEDS: DONEPEZIL HCL 5 MG TAB PO SCH (20:44)
[2017-08-01 05:30] VITALS: BP 169/82; PULSE 62; RESP 15; TEMP 98.4; O2SAT 97
[2017-08-01] MEDS: LEVOTHYROXINE SODIUM 75 MCG TAB PO SCH ×2 (06:00→06:02)
[2017-08-01] MEDS: MIDODRINE 5 MG TAB PO SCH ×3 (06:31→16:19)
[2017-08-01] MEDS: ASPIRIN EC 81 MG TABEC PO SCH ×2 (09:00→09:44)
[2017-08-01] MEDS: LACTOBACILLUS ACIDOPHILUS TAB PO SCH ×2 (09:00→09:44)
[2017-08-01] MEDS: CETIRIZINE HCL 10 MG TAB PO SCH ×2 (09:00→09:45)
[2017-08-01] MEDS: NICOTINE 21 MG/24 HR PATCH T-DERMAL SCH (09:00)
--- NOTE | 2017-08-01 15:42 | HHI.PR ---
Subjective Remarks Patient mostly stays in his room. Still very defiant. He states he has been taking his thyroid medication at home.He does not know when it was last checked. I informed him he needs a lower dose. Objective Vitals Vital Signs Date Time Temp Pulse Resp B/P (MAP) Pulse Ox O2 Delivery O2 Flow Rate FiO2 08/01/17 05:30 98.4 62 15 169/82 (111) 97 07/31/17 18:08 97.8 63 18 151/88 (109) 100 I/O 07/31/17 07/31/17 07/31/17 08/01/17 08/01/17 08/01/17 07:00 15:00 23:00 07:00 15:00 23:00 Intake Total 600 ml 480 ml 960 ml 0 ml 240 ml Balance 600 ml 480 ml 960 ml 0 ml 240 ml Intake Oral 600 ml 480 ml 960 ml 0 ml 240 ml # Voids 0 4 1 Result Diagram: 07/30/17 0650 07/31/17 1016 Objective Remarks GENERAL: This is a well-nourished, well-developed patient, in no apparent distress. CARDIOVASCULAR: Regular rate and rhythm without murmurs, gallops, or rubs. RESPIRATORY: Clear to auscultation. Breath sounds equal bilaterally. No wheezes , rales, or rhonchi. GASTROINTESTINAL: Abdomen soft, non-tender, nondistended. Normal active bowel sounds MUSCULOSKELETAL: Extremities without clubbing, cyanosis, or edema. NEURO: Awake and alert. Normal speech. PSYCH: Paranoid. A/P Problem List: (1) JOEL (acute kidney injury) ICD Code: N17.9 - Acute kidney failure, unspecified (2) Dementia with behavioral disturbance ICD Code: F03.91 - Unspecified dementia with behavioral disturbance (3) Hypotension, unspecified ICD Code: I95.9 - Hypotension, unspecified Status: Acute Assessment and Plan 77-year-old male with: Dementia with behavioral disturbances: Patient reported he has been aggressive. He is obviously paranoid. - Plans per psychiatry. - Continue dementia meds History of hypotension: - Has been stable on midodrine. Continue same dose. Monitor BP Acute on chronic kidney injury: Likely secondary to dehydration. - Resolved Hypothyroidism: - TSH is low. He reports compliance with Synthroid. Reduce Synthroid dose to 75 g daily. History of diabetes: Diet-controlled. - Blood glucose has been acceptable. Discontinue Accu-Cheks. GI prophylaxis: Stool softener PRN constipation. DVT PPx: Patient is ambulatory Patient is medically stable. Will sign off. Call or reconsult as needed. Michelle Meade MD Aug 01, 2017 15:42
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
[2017-08-01 18:31] VITALS: BP 160/69; PULSE 65; RESP 16; TEMP 98.3; O2SAT 96
[2017-08-01] MEDS: REMOVE OLD NICODERM (NICOTINE) PATCH T-DERMAL SCH (21:00)
[2017-08-01] MEDS: DONEPEZIL HCL 5 MG TAB PO SCH (21:05)
[2017-08-02] MEDS: LEVOTHYROXINE SODIUM 75 MCG TAB PO SCH ×2 (06:00→06:26)
[2017-08-02] MEDS: MIDODRINE 5 MG TAB PO SCH ×3 (06:42→16:09)
[2017-08-02] MEDS: LACTOBACILLUS ACIDOPHILUS TAB PO SCH (08:19)
[2017-08-02] MEDS: ASPIRIN EC 81 MG TABEC PO SCH (08:19)
[2017-08-02] MEDS: CETIRIZINE HCL 10 MG TAB PO SCH (08:20)
[2017-08-02] MEDS: NICOTINE 21 MG/24 HR PATCH T-DERMAL SCH (08:20)
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
[2017-08-02] MEDS: DONEPEZIL HCL 5 MG TAB PO SCH (20:50)
[2017-08-02] MEDS: REMOVE OLD NICODERM (NICOTINE) PATCH T-DERMAL SCH (20:52)
[2017-08-03 06:00] VITALS: BP 151/89; PULSE 66; RESP 18
[2017-08-03] MEDS: LEVOTHYROXINE SODIUM 75 MCG TAB PO SCH (06:28)
[2017-08-03] MEDS: MIDODRINE 5 MG TAB PO SCH ×3 (06:28→17:00)
[2017-08-03] MEDS: CETIRIZINE HCL 10 MG TAB PO SCH (08:53)
[2017-08-03] MEDS: NICOTINE 21 MG/24 HR PATCH T-DERMAL SCH (08:53)
[2017-08-03] MEDS: LACTOBACILLUS ACIDOPHILUS TAB PO SCH (08:54)
[2017-08-03] MEDS: ASPIRIN EC 81 MG TABEC PO SCH (08:54)
[2017-08-03 09:12] LABS: BICARBONATE 28.8 MEQ/L (21.0-32.0); CALCIUM 9.2 MG/DL (8.5-10.1); CHLORIDE 104 MEQ/L (98-107); CHOLESTEROL 191 MG/DL (120-200); GLOMERULAR FILTRATION RATE 49 ML/MIN (>89); GLUCOSE,RANDOM 89 MG/DL (74-106); SODIUM (NA) 140 MEQ/L (136-145); TRIGLYCERIDES 66 MG/DL (42-150)
[2017-08-03 09:14] LABS: CHOLESTEROL/ HDL RATIO 2.19 RATIO; HDL CHOLESTEROL 87.2 MG/DL (40.0-60.0); LDL CHOLESTEROL 91 MG/DL (0-99)
[2017-08-03 13:07] LABS: BLOOD UREA NITROGEN 21 MG/DL (7-18)
[2017-08-03 17:00] VITALS: BP 131/58; PULSE 72; RESP 18; TEMP 97.8; O2SAT 98
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
[2017-08-03] MEDS: REMOVE OLD NICODERM (NICOTINE) PATCH T-DERMAL SCH (20:41)
[2017-08-03] MEDS: DONEPEZIL HCL 5 MG TAB PO SCH (20:42)
[2017-08-04] MEDS: LEVOTHYROXINE SODIUM 75 MCG TAB PO SCH ×2 (06:00→06:40)
[2017-08-04] MEDS: MIDODRINE 5 MG TAB PO SCH ×4 (06:40→17:00)
[2017-08-04] MEDS: ASPIRIN EC 81 MG TABEC PO SCH (08:44)
[2017-08-04] MEDS: LACTOBACILLUS ACIDOPHILUS TAB PO SCH (08:44)
[2017-08-04] MEDS: CETIRIZINE HCL 10 MG TAB PO SCH (08:44)
[2017-08-04] MEDS: NICOTINE 21 MG/24 HR PATCH T-DERMAL SCH (08:44)
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
[2017-08-04 18:58] VITALS: BP 136/63; PULSE 50; RESP 16; TEMP 98.5; O2SAT 97
[2017-08-04] MEDS: DONEPEZIL HCL 5 MG TAB PO SCH (21:00)
[2017-08-04] MEDS: REMOVE OLD NICODERM (NICOTINE) PATCH T-DERMAL SCH (21:00)
[2017-08-05] MEDS: LEVOTHYROXINE SODIUM 75 MCG TAB PO SCH (06:00)
[2017-08-05] MEDS: MIDODRINE 5 MG TAB PO SCH ×3 (06:28→17:00)
[2017-08-05] MEDS: LACTOBACILLUS ACIDOPHILUS TAB PO SCH (08:53)
[2017-08-05] MEDS: ASPIRIN EC 81 MG TABEC PO SCH (08:53)
[2017-08-05] MEDS: CETIRIZINE HCL 10 MG TAB PO SCH (08:53)
[2017-08-05] MEDS: NICOTINE 21 MG/24 HR PATCH T-DERMAL SCH (09:00)
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
[2017-08-05 18:15] VITALS: BP 141/66; PULSE 60; RESP 16; TEMP 98; O2SAT 96
[2017-08-05] MEDS: REMOVE OLD NICODERM (NICOTINE) PATCH T-DERMAL SCH (21:00)
[2017-08-05] MEDS: DONEPEZIL HCL 5 MG TAB PO SCH (21:00)
[2017-08-06] MEDS: LEVOTHYROXINE SODIUM 75 MCG TAB PO SCH (05:44)
[2017-08-06] MEDS: MIDODRINE 5 MG TAB PO SCH ×3 (05:45→16:41)
[2017-08-06] MEDS: NICOTINE 21 MG/24 HR PATCH T-DERMAL SCH (09:00)
[2017-08-06] MEDS: LACTOBACILLUS ACIDOPHILUS TAB PO SCH (09:20)
[2017-08-06] MEDS: ASPIRIN EC 81 MG TABEC PO SCH (09:20)
[2017-08-06] MEDS: CETIRIZINE HCL 10 MG TAB PO SCH (09:20)
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
[2017-08-06 16:39] VITALS: BP 151/68
[2017-08-06 18:53] VITALS: BP 151/68; PULSE 68; RESP 15; TEMP 98; O2SAT 96
[2017-08-06] MEDS: REMOVE OLD NICODERM (NICOTINE) PATCH T-DERMAL SCH (21:00)
[2017-08-06] MEDS: DONEPEZIL HCL 5 MG TAB PO SCH (21:00)
[2017-08-07] MEDS: LEVOTHYROXINE SODIUM 75 MCG TAB PO SCH (06:00)
[2017-08-07] MEDS: MIDODRINE 5 MG TAB PO SCH ×3 (06:17→17:30)
[2017-08-07 06:22] VITALS: BP 131/64; PULSE 54; RESP 16; TEMP 97.6; O2SAT 96
[2017-08-07 08:51] VITALS: BP 154/69; PULSE 65
[2017-08-07] MEDS: CETIRIZINE HCL 10 MG TAB PO SCH (08:52)
[2017-08-07] MEDS: LACTOBACILLUS ACIDOPHILUS TAB PO SCH (08:52)
[2017-08-07] MEDS: ASPIRIN EC 81 MG TABEC PO SCH (08:52)
[2017-08-07] MEDS: NICOTINE 21 MG/24 HR PATCH T-DERMAL SCH (08:52)
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
[2017-08-07 17:18] VITALS: BP 142/73; PULSE 79; RESP 17; TEMP 98.1; O2SAT 99
[2017-08-07 17:28] VITALS: BP 142/73
[2017-08-07] MEDS: QUEtiapine FUMARATE 25 MG TAB PO SCH (17:30)
[2017-08-07] MEDS: DONEPEZIL HCL 5 MG TAB PO SCH (20:55)
[2017-08-07] MEDS: REMOVE OLD NICODERM (NICOTINE) PATCH T-DERMAL SCH (21:00)
[2017-08-08 05:51] VITALS: BP 128/64; PULSE 80; RESP 18; TEMP 97.2; O2SAT 99
[2017-08-08] MEDS: LEVOTHYROXINE SODIUM 75 MCG TAB PO SCH (06:38)
[2017-08-08] MEDS: MIDODRINE 5 MG TAB PO SCH ×3 (06:38→18:02)
[2017-08-08] MEDS: QUEtiapine FUMARATE 25 MG TAB PO SCH ×3 (09:56→18:02)
[2017-08-08] MEDS: CETIRIZINE HCL 10 MG TAB PO SCH (09:56)
[2017-08-08] MEDS: ASPIRIN EC 81 MG TABEC PO SCH (09:56)
[2017-08-08] MEDS: LACTOBACILLUS ACIDOPHILUS TAB PO SCH (09:56)
[2017-08-08] MEDS: NICOTINE 21 MG/24 HR PATCH T-DERMAL SCH (09:57)
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
[2017-08-08 17:59] VITALS: BP 104/55; PULSE 56; RESP 18; TEMP 98; O2SAT 94
[2017-08-08] MEDS: DONEPEZIL HCL 5 MG TAB PO SCH (21:00)
[2017-08-08] MEDS: REMOVE OLD NICODERM (NICOTINE) PATCH T-DERMAL SCH (21:00)
[2017-08-09 05:54] VITALS: BP 121/56; PULSE 55; RESP 15; TEMP 98; O2SAT 99
[2017-08-09] MEDS: LEVOTHYROXINE SODIUM 75 MCG TAB PO SCH ×2 (06:00→06:21)
[2017-08-09] MEDS: MIDODRINE 5 MG TAB PO SCH ×4 (06:21→17:31)
[2017-08-09] MEDS: NICOTINE 21 MG/24 HR PATCH T-DERMAL SCH (09:00)
[2017-08-09] MEDS: CETIRIZINE HCL 10 MG TAB PO SCH (10:17)
[2017-08-09] MEDS: ASPIRIN EC 81 MG TABEC PO SCH (10:17)
[2017-08-09] MEDS: LACTOBACILLUS ACIDOPHILUS TAB PO SCH (10:17)
[2017-08-09] MEDS: QUEtiapine FUMARATE 25 MG TAB PO SCH ×3 (10:17→17:31)
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
[2017-08-09] MEDS: DONEPEZIL HCL 5 MG TAB PO SCH (21:00)
[2017-08-09] MEDS: REMOVE OLD NICODERM (NICOTINE) PATCH T-DERMAL SCH (21:00)
[2017-08-10] MEDS: LEVOTHYROXINE SODIUM 75 MCG TAB PO SCH (06:00)
[2017-08-10 06:12] VITALS: BP 117/56; RESP 18; O2SAT 95
[2017-08-10] MEDS: MIDODRINE 5 MG TAB PO SCH ×3 (06:34→13:48)
[2017-08-10] MEDS: NICOTINE 21 MG/24 HR PATCH T-DERMAL SCH (09:00)
[2017-08-10 09:11] VITALS: BP 120/53; PULSE 54
[2017-08-10] MEDS: LACTOBACILLUS ACIDOPHILUS TAB PO SCH (09:14)
[2017-08-10] MEDS: QUEtiapine FUMARATE 25 MG TAB PO SCH ×3 (09:14→18:14)
[2017-08-10] MEDS: ASPIRIN EC 81 MG TABEC PO SCH (09:14)
[2017-08-10] MEDS: CETIRIZINE HCL 10 MG TAB PO SCH (09:16)
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
[2017-08-10] MEDS: DONEPEZIL HCL 5 MG TAB PO SCH (20:31)
[2017-08-11] MEDS: LEVOTHYROXINE SODIUM 75 MCG TAB PO SCH (06:12)
[2017-08-11] MEDS: MIDODRINE 5 MG TAB PO SCH ×3 (06:12→17:04)
[2017-08-11 06:37] VITALS: BP 133/67; PULSE 84; RESP 16; TEMP 97.7; O2SAT 99
[2017-08-11] MEDS: CETIRIZINE HCL 10 MG TAB PO SCH (08:46)
[2017-08-11] MEDS: LACTOBACILLUS ACIDOPHILUS TAB PO SCH (08:46)
[2017-08-11] MEDS: QUEtiapine FUMARATE 25 MG TAB PO SCH ×3 (08:46→17:04)
[2017-08-11] MEDS: ASPIRIN EC 81 MG TABEC PO SCH (08:46)
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
[2017-08-11 18:00] VITALS: BP 96/56; PULSE 66; RESP 16; TEMP 98.9; O2SAT 99
[2017-08-11] MEDS: DONEPEZIL HCL 5 MG TAB PO SCH (21:00)
[2017-08-12 06:01] VITALS: BP 115/56; PULSE 43; RESP 16; TEMP 97.3; O2SAT 97
[2017-08-12] MEDS: MIDODRINE 5 MG TAB PO SCH ×3 (06:46→16:34)
[2017-08-12] MEDS: LEVOTHYROXINE SODIUM 75 MCG TAB PO SCH (06:46)
[2017-08-12] MEDS: ASPIRIN EC 81 MG TABEC PO SCH ×2 (08:46→08:56)
[2017-08-12] MEDS: CETIRIZINE HCL 10 MG TAB PO SCH ×2 (08:46→08:56)
[2017-08-12] MEDS: QUEtiapine FUMARATE 25 MG TAB PO SCH ×4 (08:46→17:19)
[2017-08-12] MEDS: LACTOBACILLUS ACIDOPHILUS TAB PO SCH ×2 (08:47→08:56)
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
[2017-08-12 18:29] VITALS: BP 110/60; PULSE 50; RESP 16; TEMP 97.4; O2SAT 97
[2017-08-12] MEDS: DONEPEZIL HCL 5 MG TAB PO SCH (21:00)
[2017-08-13] MEDS: MIDODRINE 5 MG TAB PO SCH ×3 (05:56→16:41)
[2017-08-13] MEDS: LEVOTHYROXINE SODIUM 75 MCG TAB PO SCH (05:56)
[2017-08-13 06:31] VITALS: BP 112/61; PULSE 57; RESP 17; TEMP 98.1; O2SAT 96
[2017-08-13] MEDS: CETIRIZINE HCL 10 MG TAB PO SCH (08:45)
[2017-08-13] MEDS: QUEtiapine FUMARATE 25 MG TAB PO SCH ×3 (08:45→17:12)
[2017-08-13] MEDS: LACTOBACILLUS ACIDOPHILUS TAB PO SCH (08:45)
[2017-08-13] MEDS: ASPIRIN EC 81 MG TABEC PO SCH (08:45)
[2017-08-13] MEDS ORDERED: SERO25TA PO (10:11)
[2017-08-13] MEDS ORDERED: LEVO.075 PO (10:11)
[2017-08-13] MEDS ORDERED: ASPI1TAB57 PO (10:11)
[2017-08-13] MEDS ORDERED: MIDO5TAB PO (10:11)
[2017-08-13] MEDS ORDERED: CETI10 PO (10:11)
[2017-08-13] MEDS ORDERED: DONE10TA7 PO (10:11)
[2017-08-13] MEDS ORDERED: CULT10CA4 PO (10:11)
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
[2017-08-13 17:44] VITALS: BP 106/58; PULSE 62; RESP 16; TEMP 98.3; O2SAT 94
[2017-08-13] MEDS: DONEPEZIL HCL 5 MG TAB PO SCH (20:10)
[2017-08-14 06:04] VITALS: BP 100/58; PULSE 56; RESP 17; TEMP 97.9; O2SAT 95
[2017-08-14] MEDS: LEVOTHYROXINE SODIUM 75 MCG TAB PO SCH (06:38)
[2017-08-14] MEDS: MIDODRINE 5 MG TAB PO SCH ×2 (06:38→09:01)
[2017-08-14] MEDS: LACTOBACILLUS ACIDOPHILUS TAB PO SCH (09:01)
[2017-08-14] MEDS: QUEtiapine FUMARATE 25 MG TAB PO SCH ×2 (09:01→13:46)
[2017-08-14] MEDS: CETIRIZINE HCL 10 MG TAB PO SCH (09:01)
[2017-08-14] MEDS: ASPIRIN EC 81 MG TABEC PO SCH (09:01)
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
[2017-08-14] MEDS ORDERED: LORazepam 1 MG TAB PO ONE (14:00)
== END 2017-08-14 16:50 | DRG 57 ==
LOC: NEPD 06:25 → NEDA 12:13 → H250 13:05
PROVIDERS: ADMIT Psychiatry & Neurology Psychiatry; ATTEND Psychiatry & Neurology Psychiatry
DX: G30.1 Alzheimer's disease with late onset (principal); N17.9 Acute kidney failure, unspecified; F02.81 Dementia in other diseases classified elsewhere, unspecified severity, with behavioral disturbance; E11.22 Type 2 diabetes mellitus with diabetic chronic kidney disease; I95.9 Hypotension, unspecified; E86.0 Dehydration; N18.9 Chronic kidney disease, unspecified; I12.9 Hypertensive chronic kidney disease with stage 1 through stage 4 chronic kidney disease, or unspecified chronic kidney disease; Z96.641 Presence of right artificial hip joint; E03.9 Hypothyroidism, unspecified; E78.5 Hyperlipidemia, unspecified; J45.909 Unspecified asthma, uncomplicated; K21.9 Gastro-esophageal reflux disease without esophagitis; M19.90 Unspecified osteoarthritis, unspecified site; Z87.891 Personal history of nicotine dependence
CPT/HCPCS: 80048; 80053; 80061; 80307; 81001; 82306; 82607; 82948; 83036; 84439; 84443; 84481; 85025; 93005; 99285

== ENCOUNTER 2017-11-19 16:57 | Inpatient (IN) | payer MEDICARE, BC, OTHER ==
[~2017-11-19] VITALS: Ht 182.9 cm; Wt 78.5 kg
[~2017-11-19 16:57] MED LIST changes: +DONE10TA7 PO; -DONE5TAB7 PO; +LEVO.075 PO; -LEVO100T5 PO; -ROSU10 PO; +SERO25TA PO; -VITA100T10; -iron
[2017-11-19 17:16] VITALS: BP 118/67; PULSE 75; RESP 16; TEMP 98.8; O2SAT 99
[2017-11-19 18:41] LABS: AUTOMATED NEUTROPHIL # 4.2 TH/MM3 (1.8-7.7); BASOPHIL % 0.7 % (0.0-2.0); EOSINOPHIL # 0.1 TH/MM3 (0-0.4); EOSINOPHIL % 2.1 % (0.0-4.0); HEMATOCRIT 36.6 % (39.0-51.0); HEMOGLOBIN 12.3 GM/DL (13.0-17.0); LYMPH % 17.9 % (9.0-44.0); LYMPHOCYTE # 1.1 TH/MM3 (1.0-4.8); MEAN CELL VOLUME 88.1 FL (80.0-100.0); MEAN CORPUSCULAR HEMOGLOBIN 29.6 PG (27.0-34.0); MEAN CORPUSCULAR HGB CONC 33.6 % (32.0-36.0); MEAN PLATELET VOLUME 8.1 FL (7.0-11.0); MONO % 10.5 % (0.0-8.0); MONOCYTE # 0.6 TH/MM3 (0-0.9); NEUT % 68.8 % (16.0-70.0); PLATELET COUNT 341 TH/MM3 (150-450); RED BLOOD COUNT 4.15 MIL/MM3 (4.50-5.90); RED CELL DISTRIBUTION WIDTH 14.7 % (11.6-17.2); WHITE BLOOD COUNT 6.1 TH/MM3 (4.0-11.0)
[2017-11-19 18:59] LABS: ALBUMIN 3.1 GM/DL (3.4-5.0); AST (GOT) 15 U/L (15-37); BICARBONATE 25.1 MEQ/L (21.0-32.0); BLOOD UREA NITROGEN 12 MG/DL (7-18); CALCIUM 8.3 MG/DL (8.5-10.1); CHLORIDE 103 MEQ/L (98-107); CREATININE 1.14 MG/DL (0.60-1.30); GLOMERULAR FILTRATION RATE 62 ML/MIN (>89); GLUCOSE,RANDOM 115 MG/DL (74-106); SODIUM (NA) 140 MEQ/L (136-145)
[2017-11-19 19:00] LABS: ALT (GPT) 18 U/L (12-78)
[2017-11-19 19:02] LABS: ALKALINE PHOSPHATASE 54 U/L (45-117); TOTAL BILIRUBIN ADULT 0.3 MG/DL (0.2-1.0); TOTAL PROTEIN 6.2 GM/DL (6.4-8.2)
[2017-11-19] MEDS ORDERED: DIATRIZOATE MEGLUM/DIATRIZOATE SOD 9 ML CUP ONE (19:47)
--- NOTE | 2017-11-19 19:51 | PD ---
HPI Chief Complaint: Abdominal Pain Time Seen by Provider: 19:05 Travel History International Travel<30 days: No Contact w/Intl Traveler<30days: No Traveled to known affect area: No History of Present Illness HPI The patient is a 77 year old male who presents to the [facility] emergency department with a history of being sent to the emergency department [place] [facility] related to an abnormal abdominal x-ray suspicious for obstruction. According to his at the bedside, the patient has not been eating or drinking well for the last week. The patient reports that he has not moved his bowels for the last 1-1-1/2 weeks. His reports that he has not had any recent nausea or vomiting, however 2 weeks ago he did have 2 episodes of vomiting. He denies having any known recent fevers. He denies having any chest pain, chest pressure, or shortness of breath. He reports that he does have some right-sided abdominal pain that is mild. He reports that it is an aching sensation that is worse with eating. Otherwise on review of systems, the patient denies having any cough or congestion, neck pain , urinary symptoms, or neurologic symptoms. [facility] Past Medical History Narrative Medical The patient's past medical history is significant for dementia, hypertension, hyperlipidemia, seasonal allergies, hypotension on midodrine Hx Anticoagulant Therapy: Yes (BABY ASA DAILY) Arthritis: Yes Asthma: Yes Autoimmune Disease: No Anxiety: No Depression: No Heart Rhythm Problems: No Cancer: No Cardiovascular Problems: Yes High Cholesterol: Yes Chest Pain: No Congestive Heart Failure: No COPD: No Cerebrovascular Accident: No Dementia: Yes Diabetes: No Diminished Hearing: No Endocrine: Yes Gastrointestinal Disorders: Yes GERD: Yes Genitourinary: Yes Headaches: No Hiatal Hernia: Yes Hypertension: Yes Kidney Stones: No Musculoskeletal: Yes (DDD) Neurologic: Yes Psychiatric: Yes (Dementia for the past two years.) Reproductive: No Respiratory: Yes Migraines: No Renal Failure: No Seizures: No Sleep Apnea: No Thyroid Disease: Yes Ulcer: Yes (WHEN YOUNGER) Influenza Vaccination: Yes Past Surgical History Narrative Surgical The patient's past surgical history is significant for a right bipolar hip replacement, cholecystectomy, left hernia repair, cataract surgery. Abdominal Surgery: Yes (HERNIA, GALLBLADDER) Cardiac Surgery: No Cholecystectomy: Yes Endocrine Surgery: No Eye Surgery: Yes (BILATERAL CATARACT) Genitourinary Surgery: Yes (VASECTOMY) Joint Replacement: No Oral Surgery: Yes (CLEFT LIP AND PALATE/NOSE) Pacemaker: No Thoracic Surgery: No Tonsillectomy: Yes Other Surgery: Yes (HIP SURGERY) Social History Alcohol Use: No (previous use) Tobacco Use: No Substance Use: No Allergies-Medications (Allergen,Severity, Reaction): Coded Allergies: atorvastatin (Unverified Allergy, Unknown, pt does not know he is allergic to this, 11/19/17) fluticasone (Unverified Adverse Reaction, Unknown, pt does not know he is allergic to this, 11/19/17) fluticasone furoate (Unverified Adverse Reaction, Unknown, pt does not know he is allergic to this, 11/19/17) salmeterol (Unverified Adverse Reaction, Unknown, pt does not know he is allergic to this, 11/19/17) Reported Meds & Prescriptions Reported Meds & Active Scripts Active Seroquel (Quetiapine Fumarate) 25 Mg Tab 25 Mg PO TID Synthroid (Levothyroxine Sodium) 75 Mcg Tab 75 Mcg PO DAILY@0600 Donepezil 10 Mg Tab 10 Mg PO HS Cetirizine (Cetirizine HCl) 10 Mg Tab 10 Mg PO DAILY Culturelle (Lactobacillus Rhamnosus (GG)) 10 Billion Cell Cap 1 Cap PO DAILY Midodrine 5 Mg Tab 5 Mg PO TID@07,12,17 Aspirin 81 (Aspirin) 81 Mg Tabdr 81 Mg PO DAILY Reported B12 (Cyanocobalamin) 1,000 Mcg Tab D3 Maximum Strength (Cholecalciferol) 5,000 Unit Cap 2,000 Units PO DAILY Glucosamine-Chondroitin 500-400 Mg Tab 1 Tab PO DAILY Centrum (Multiple Vitamins W/ Minerals) 1 Chew 1 Tab CHEW DAILY Review of Systems Except as stated in HPI: all other systems reviewed are Neg General / Constitutional: No: Fever Eyes: No: Visual changes HENT: No: Headaches Cardiovascular: No: Chest Pain or Discomfort Respiratory: No: Shortness of Breath Gastrointestinal: Positive: Nausea, Vomiting, Abdominal Pain, Constipation, Changes in Bowel Habits, Loss of Appetite, No: Diarrhea, Indigestion Genitourinary: No: Dysuria Musculoskeletal: No: Pain Skin: No Rash Neurologic: No: Weakness Psychiatric: No: Depression Endocrine: No: Polydipsia Hematologic/Lymphatic: No: Easy Bruising Physical Exam Narrative General: The patient is a well-developed well-nourished male in no acute distress. Head and Neck exam: Head is normocephalic atraumatic. Eyes: EOMI, pupils are equal round and reactive to light. Nose: Midline septum with pink mucous membranes Mouth: Dentition unremarkable. Moist mucus membranes. Posterior oropharynx is not erythematous. No tonsillar hypertrophy. Uvula midline. Airway patent. Neck: No palpable lymphadenopathy. No nuchal rigidity. No thyromegaly. Cardiovascular: Regular rate and rhythm without murmurs, gallops, or rubs. No pulse deficit to the extremities on simultaneous auscultation and palpation of his radial artery. Lungs: Clear to auscultation bilaterally. No wheezes, rhonchi, or rales. Abdomen: Soft, with tenderness on palpation of the right upper and right lower quadrant of the abdomen, no other tenderness on palpation of the other quadrants. Normal bowel sounds are audible. No guarding, rebound, or rigidity. Negative Bird sign. No point tenderness on palpation of McBurney's point. Extremities: No clubbing, cyanosis, or edema. 2+ pulses in all 4 extremities. Back: No spinous process tenderness to palpation. No costovertebral angle tenderness to palpation. Neurologic Exam: Grossly nonfocal. Skin Exam: No rash noted. Intact skin that is warm and dry. Data Data Last Documented VS Vital Signs Date Time Temp Pulse Resp B/P (MAP) Pulse Ox O2 Delivery O2 Flow Rate FiO2 11/19/17 19:55 78 18 110/65 (80) 96 Room Air 11/19/17 17:16 98.8 Orders Orders Complete Blood Count With Diff (11/19/17 17:20) Comprehensive Metabolic Panel (11/19/17 17:20) Lipase (11/19/17 17:20) Ct Abd/Pel W Iv Contrast(Rout) (11/19/17 19:15) Lactic Acid (11/19/17 19:15) Oral Contrast - Adult (11/19/17 19:39) Diatrizoate Liq ( Gastroview Liq) (11/19/17 19:47) Sodium Chlor 0.9% 1000 Ml Inj (Ns 1000 M (11/19/17 20:00) Morphine Inj (Morphine Inj) (11/19/17 20:00) Ondansetron Inj (Zofran Inj) (11/19/17 20:00) Ns + Kcl 20 Meq Inj (Ns + Kcl 20 Meq Inj (11/19/17 21:15) Admit Order (Ed Use Only) (11/19/17 22:44) Labs Laboratory Tests Test 11/19/17 17:55 11/19/17 19:35 White Blood Count 6.1 TH/MM3 Red Blood Count 4.15 MIL/MM3 Hemoglobin 12.3 GM/DL Hematocrit 36.6 % Mean Corpuscular Volume 88.1 FL Mean Corpuscular Hemoglobin 29.6 PG Mean Corpuscular Hemoglobin Concent 33.6 % Red Cell Distribution Width 14.7 % Platelet Count 341 TH/MM3 Mean Platelet Volume 8.1 FL Neutrophils (%) (Auto) 68.8 % Lymphocytes (%) (Auto) 17.9 % Monocytes (%) (Auto) 10.5 % Eosinophils (%) (Auto) 2.1 % Basophils (%) (Auto) 0.7 % Neutrophils # (Auto) 4.2 TH/MM3 Lymphocytes # (Auto) 1.1 TH/MM3 Monocytes # (Auto) 0.6 TH/MM3 Eosinophils # (Auto) 0.1 TH/MM3 Basophils # (Auto) 0.0 TH/MM3 CBC Comment AUTO DIFF Differential Total Cells Counted 100 Neutrophils % (Manual) 77 % Band Neutrophils % 1 % Lymphocytes % 15 % Monocytes % 4 % Eosinophils % 2 % Basophils % 1 % Neutrophils # (Manual) 4.8 TH/MM3 Differential Comment FINAL DIFF MANUAL Platelet Estimate NORMAL Platelet Morphology Comment CLUMPED Blood Urea Nitrogen 12 MG/DL Creatinine 1.14 MG/DL Random Glucose 115 MG/DL Total Protein 6.2 GM/DL Albumin 3.1 GM/DL Calcium Level 8.3 MG/DL Alkaline Phosphatase 54 U/L Aspartate Amino Transf (AST/SGOT) 15 U/L Alanine Aminotransferase (ALT/SGPT) 18 U/L Total Bilirubin 0.3 MG/DL Sodium Level 140 MEQ/L Potassium Level 3.1 MEQ/L Chloride Level 103 MEQ/L Carbon Dioxide Level 25.1 MEQ/L Anion Gap 12 MEQ/L Estimat Glomerular Filtration Rate 62 ML/MIN Lipase 331 U/L Lactic Acid Level 0.9 mmol/L MDM Medical Decision Making Medical Screen Exam Complete: Yes Emergency Medical Condition: Yes Medical Record Reviewed: Yes Differential Diagnosis Bowel obstruction, versus ileus, versus bowel perforation Narrative Course During the course of the patient's emergency department visit, the patient's history, examination, and differential diagnosis were reviewed with the patient. The patient was placed on a laboratory monitor with oximetry and frequent blood pressure monitoring. The patient had IV access obtained and blood work sent for analysis. The patient was initially provided normal saline IV fluids, morphine for pain, Zofran for nausea. The patient's laboratory studies were reviewed and remarkable for a white count of 6.1, hemoglobin 12.3, platelets 341 77 neutrophils, 1 band, CMP is remarkable for potassium 3.1 which was supplemented in his IV fluids at a maintenance rate, glucose 115, calcium 8.3, total protein 6.2, albumin 3.1, lipase 331. Lactic acid is 0.9 decreasing likelihood of ischemic bowel. Radiology studies were reviewed and remarkable for a CT scan of the abdomen that shows distended loops of stomach and proximal small bowel with air-fluid levels differential considerations include ileus and small bowel obstruction, moderate size right pleural effusion. The patient's results were discussed with the patient, including the plan of care. I explained that further testing and/ or monitoring is indicated based on the patient's history, examination, and/ or laboratory findings. Therefore, I recommended admission for additional evaluation. The patient expressed understanding and was agreeable with this plan. The patient was admitted to the hospital in stable condition and sent to a bed under the care of the [facility]. Physician Communication Physician Communication The patient's case including history, pertinent physical examination findings, and laboratory studies were discussed with Dr. Mcmillan. It was agreed that the patient would be admitted to the [facility] service. Diagnosis Primary Impression: Partial small bowel obstruction Admitting Information Admitting Physician Requests: Admit Dilia Davis MD November 19, 2017 19:51
[2017-11-19 19:55] VITALS: BP 110/65; PULSE 78; RESP 18; O2SAT 96
[2017-11-19] MEDS ORDERED: MORPHINE SULFATE 2 MG/ML SYRINGE IV PUSH ONE (20:00)
[2017-11-19] MEDS ORDERED: SODIUM CHLOR 0.9% 1000 ML INJ 1,000 ML IV ONE (20:00)
[2017-11-19] MEDS ORDERED: ONDANSETRON HCL 4 MG/2 ML VIAL IV PUSH ONE (20:00)
[2017-11-19 20:18] LABS: BANDS 1 % (0-6); BASOPHILS 1 % (0-2); LYMPHOCYTES 15 % (9-44); MONOCYTES 4 % (0-8); NEUTROPHIL # MANUAL DIFF 4.8 TH/MM3 (1.8-7.7); POLYS (SEG NEUTROPHILS) 77 % (16-70)
[2017-11-19] MEDS ORDERED: IOHEXOL 350 MG/ML 10 ML VIAL (for RAD DIAG) IVCONTRAST ONE (20:30)
[2017-11-19] MEDS: NS + KCL 20 MEQ INJ 1,000 ML IV SCH (21:51)
--- NOTE | 2017-11-19 22:31 | RADRPT ---
EXAM DATE: 11/19/2017 10:22 PM EDT AGE/SEX: 77 years / Male INDICATIONS: Abdomen pain. CLINICAL DATA: This is the patient's initial encounter. Patient reports that signs and symptoms have been present for 1 day and indicates a pain score of 8/10. MEDICAL/SURGICAL HISTORY: Hypertension. Hiatal hernia. ulcer Cholecystectomy. ORAL CONTRAST: No oral contrast ingested. RADIATION DOSE: 17.15 CTDI (mGy) COMPARISON: No prior [facility] exams available for comparison. TECHNIQUE: Multiple contiguous axial images were obtained through the abdomen and pelvis following b olus infusion of 100 ml Omnipaque 350 (iohexol) nonionic water-soluble contrast as a single exam do se. No oral contrast ingested. Using automated exposure control and adjustment of the mA and/or kV a ccording to patient size, the radiation dose was kept as low as reasonably achievable to obtain optim al diagnostic quality images. Lower Lungs: Moderate size right pleural effusion measuring up to 3.5 cm. Mild compressive atelectasi s adjacent right lower lung. 9 mm oval calcification lateral right lower lung and a 8mm calcification in the lower lateral left lung, suggesting calcified granulomata. Liver: The liver has a homogeneous density without space-occupying lesion. There is no dilation of th e biliary tree. Cholecystectomy. Spleen: Normal size. 1.6 cm round low density lesion in the mid spleen. A report from prior CT scans in 2013 and 2012 had dimension low density lesion; the images are not available for direct compariso n. Pancreas: Unremarkable without mass or calcification. Kidneys: Normal in size and shape. No evidence of mass or hydronephrosis. Adrenal Glands: Unremarkable. Aorta: The aorta and proximal iliac vessels are grossly unremarkable without aneurysmal dilation. Bowel/Mesentery: Abnormal. There are multiple dilated loops of small bowel measuring up to 5.8 cm in diameter. Multiple air-fluid levels are present in loops of small bowel. Distal small bowel loops ar e not dilated. Moderate amount stool seen in the left colon. There is marked distention of the stomac h with prominent air-fluid level. No evidence of free fluid. Abdominal Wall: Intact. Retroperitoneum: No evidence of adenopathy in the retrocrural, para-aortic, or deep pelvic regions. Bladder: Contours are smooth. Reproductive Organs: No abnormal masses or calcifications seen. Inguinal: The inguinal region is unremarkable without evidence of adenopathy. Bony Structures: Diffuse osteopenia. Right total hip arthroplasty.. CONCLUSION: 1. Distended loops of stomach and proximal small bowel with air-fluid levels. Differential considera tions include ileus and small bowel obstruction. 2. Moderate size right pleural effusion. Electronically signed by: Scar Shaffer MD 11/19/2017 10:30 PM EDT
[2017-11-19] MEDS ORDERED: SODIUM CHLORIDE 0.9% FLUSH 10 ML FLUSH IV FLUSH PRN (22:45)
[2017-11-19] MEDS ORDERED: BISACODYL 10 MG SUPP RECTAL PRN (22:45)
[2017-11-19] MEDS ORDERED: MAGNESIUM HYDROXIDE SUSP 30 ML CUP PO PRN (22:45)
[2017-11-19] MEDS ORDERED: NALOXONE HCL 0.4 MG/ML AMP IV PUSH PRN (22:45)
[2017-11-19] MEDS ORDERED: ACETAMINOPHEN 325 MG TAB PO PRN (22:45)
[2017-11-19] MEDS ORDERED: LACTULOSE SYRUP 20 GM/30 ML CUP PO PRN (22:45)
[2017-11-19] MEDS ORDERED: SENNOSIDES 8.6 MG TAB PO PRN (22:45)
[2017-11-19] MEDS ORDERED: SODIUM CHLOR 0.9% 1000 ML INJ 1,000 ML IV SCH (22:45)
[2017-11-19] MEDS ORDERED: ONDANSETRON HCL 4 MG/2 ML VIAL IVP PRN (22:45)
[2017-11-19 22:49] VITALS: O2SAT 95
[2017-11-19] MEDS ORDERED: ONDANSETRON ODT 4 MG TAB PO PRN (23:00)
--- NOTE | 2017-11-19 23:25 | HHI.HP ---
HPI Service [facility] Primary Care Physician Raul Blair MD Admission Diagnosis Ileus versus partial SBO Diagnoses: Chief Complaint: Abnormal abdominal xray at [place] [facility]. Travel History International Travel<30 Days: No Contact w/Intl Traveler <30 Da: No Traveled to Known Affected Are: No History of Present Illness Mr. Zepeda is a 77-year-old male with a history of dementia who was brought to the hospital from his [place] [facility] due to abnormal abdominal x-ray suspicious for obstruction. Patient has not been eating or drinking well for the last 1 week. He also had nausea vomiting 2 weeks ago but no recent nausea vomiting. At the time of this interview, patient denies any chest pain, shortness of breath, abdominal pain, fever or chills. Patient reports that his last bowel movement was 3-4 days ago. However this is unreliable according to his . Upon arrival, patient's vitals with normal range. CT abdomen pelvis indicated possibility of ileus and small bowel obstruction. CT scan also shows moderate sized pleural effusion on the right. Review of Systems Except as stated in HPI: all other systems reviewed are Neg Past Family Social History Past Medical History Dementia, hypotension, hyperlipidemia Past Surgical History Cataract surgery, hernia repair, cholecystectomy, hip surgery Reported Medications Seroquel (Quetiapine Fumarate) 25 Mg Tab 25 Mg PO TID Synthroid (Levothyroxine Sodium) 75 Mcg Tab 75 Mcg PO DAILY@0600 Donepezil 10 Mg Tab 10 Mg PO HS Cetirizine (Cetirizine HCl) 10 Mg Tab 10 Mg PO DAILY Culturelle (Lactobacillus Rhamnosus (GG)) 10 Billion Cell Cap 1 Cap PO DAILY Midodrine 5 Mg Tab 5 Mg PO TID@07,12,17 Aspirin 81 (Aspirin) 81 Mg Tabdr 81 Mg PO DAILY Reported B12 (Cyanocobalamin) 1,000 Mcg Tab D3 Maximum Strength (Cholecalciferol) 5,000 Unit Cap 2,000 Units PO DAILY Glucosamine-Chondroitin 500-400 Mg Tab 1 Tab PO DAILY Centrum (Multiple Vitamins W/ Minerals) 1 Chew 1 Tab CHEW DAILY Allergies: Coded Allergies: atorvastatin (Unverified Allergy, Unknown, pt does not know he is allergic to this, 11/19/17) fluticasone (Unverified Adverse Reaction, Unknown, pt does not know he is allergic to this, 11/19/17) fluticasone furoate (Unverified Adverse Reaction, Unknown, pt does not know he is allergic to this, 11/19/17) salmeterol (Unverified Adverse Reaction, Unknown, pt does not know he is allergic to this, 11/19/17) Family History No family history of Alzheimer's or Parkinson's. Social History Denies using alcohol, tobacco, illicit drugs. Physical Exam Vital Signs Vital Signs Date Time Temp Pulse Resp B/P (MAP) Pulse Ox O2 Delivery O2 Flow Rate FiO2 11/19/17 22:49 95 11/19/17 19:55 78 18 110/65 (80) 96 Room Air 11/19/17 17:16 98.8 75 16 118/67 (84) 99 Physical Exam GENERAL: This is a well-nourished, well-developed patient, in no apparent distress. SKIN: No rashes, ecchymoses or lesions. Warm and dry. HEAD: Atraumatic. Normocephalic. No temporal or scalp tenderness. EYES: Pupils equal round and reactive. No injection or drainage. ENT: Nose without bleeding, purulent drainage or septal hematoma. Airway patent. NECK: Trachea midline. No lymphadenopathy. Supple, nontender, no meningeal signs. CARDIOVASCULAR: Regular rate and rhythm without murmurs, gallops, or rubs. No JVD. RESPIRATORY: Clear to auscultation. Breath sounds equal bilaterally. No wheezes , rales, or rhonchi. GASTROINTESTINAL: Abdomen soft, non-tender, nondistended. No guarding. Bowel sounds positive. MUSCULOSKELETAL: Extremities without clubbing, cyanosis, or edema. NEUROLOGICAL: Awake and alert. Cranial nerves II through XII intact. No focal neurological deficits. Normal speech. Flat affect. Laboratory Laboratory Tests Test 11/19/17 17:55 11/19/17 19:35 White Blood Count 6.1 Red Blood Count 4.15 Hemoglobin 12.3 Hematocrit 36.6 Mean Corpuscular Volume 88.1 Mean Corpuscular Hemoglobin 29.6 Mean Corpuscular Hemoglobin Concent 33.6 Red Cell Distribution Width 14.7 Platelet Count 341 Mean Platelet Volume 8.1 Neutrophils (%) (Auto) 68.8 Lymphocytes (%) (Auto) 17.9 Monocytes (%) (Auto) 10.5 Eosinophils (%) (Auto) 2.1 Basophils (%) (Auto) 0.7 Neutrophils # (Auto) 4.2 Lymphocytes # (Auto) 1.1 Monocytes # (Auto) 0.6 Eosinophils # (Auto) 0.1 Basophils # (Auto) 0.0 CBC Comment AUTO DIFF Differential Total Cells Counted 100 Neutrophils % (Manual) 77 Band Neutrophils % 1 Lymphocytes % 15 Monocytes % 4 Eosinophils % 2 Basophils % 1 Neutrophils # (Manual) 4.8 Differential Comment FINAL DIFF MANUAL Platelet Estimate NORMAL Platelet Morphology Comment CLUMPED Blood Urea Nitrogen 12 Creatinine 1.14 Random Glucose 115 Total Protein 6.2 Albumin 3.1 Calcium Level 8.3 Alkaline Phosphatase 54 Aspartate Amino Transf (AST/SGOT) 15 Alanine Aminotransferase (ALT/SGPT) 18 Total Bilirubin 0.3 Sodium Level 140 Potassium Level 3.1 Chloride Level 103 Carbon Dioxide Level 25.1 Anion Gap 12 Estimat Glomerular Filtration Rate 62 Lipase 331 Lactic Acid Level 0.9 Result Diagram: 11/19/17175411/19/171754 Imaging CT abdomen pelvis with IV contrast CONCLUSION: 1. Distended loops of stomach and proximal small bowel with air-fluid levels. Differential considerations include ileus and small bowel obstruction. 2. Moderate size right pleural effusion. Caprini VTE Risk Assessment Caprini VTE Risk Assessment: Mod/High Risk (score >= 2) Caprini Risk Assessment Model Point Value = 1 Point Value = 2 Point Value = 3 Point Value = 5 Age 41-60 Minor surgery BMI > 25 kg/m2 Swollen legs Varicose veins or History of unexplained or recurrent spontaneous Oral contraceptives or hormone replacement Sepsis (< 1 month) Serious lung disease, including pneumonia (< 1 month) Abnormal pulmonary function Acute myocardial infarction Congestive heart failure (< 1 month) History of inflammatory bowel disease Medical patient at bed rest Age 61-74 Arthroscopic surgery Major open surgery (> 45 min) Laparoscopic surgery (> 45 min) Malignancy Confined to bed (> 72 hours) Immobilizing plaster cast Central venous access Age >= 75 History of VTE Family history of VTE Factor V Leiden Prothrombin [id number] Lupus anticoagulant Anticardiolipin antibodies Elevated serum homocysteine Heparin-induced thrombocytopenia Other congenital or acquired thrombophilia Stroke (< 1 month) Elective arthroplasty Hip, pelvis, or leg fracture Acute spinal cord injury (< 1 month) Prophylaxis Regimen Total Risk Factor Score Risk Level Prophylaxis Regimen 0-1 Low Early ambulation 2 Moderate Order ONE of the following: *Sequential Compression Device (SCD) *Heparin 5000 units SQ BID 3-4 Higher Order ONE of the following medications: *Heparin 5000 units SQ TID *Enoxaparin/Lovenox 40 mg SQ daily (WT < 150 kg, CrCl > 30 mL/min) *Enoxaparin/Lovenox 30 mg SQ daily (WT < 150 kg, CrCl > 10-29 mL/min) *Enoxaparin/Lovenox 30 mg SQ BID (WT < 150 kg, CrCl > 30 mL/min) AND/OR *Sequential Compression Device (SCD) 5 or more Highest Order ONE of the following medications: *Heparin 5000 units SQ TID (Preferred with Epidurals) *Enoxaparin/Lovenox 40 mg SQ daily (WT < 150 kg, CrCl > 30 mL/min) *Enoxaparin/Lovenox 30 mg SQ daily (WT < 150 kg, CrCl > 10-29 mL/min) *Enoxaparin/Lovenox 30 mg SQ BID (WT < 150 kg, CrCl > 30 mL/min) AND *Sequential Compression Device (SCD) Assessment and Plan Problem List: (1) Small bowel obstruction ICD Code: K56.609 - Unspecified intestinal obstruction, unspecified as to partial versus complete obstruction (2) Hypokalemia ICD Code: E87.6 - Hypokalemia Status: Resolved Assessment and Plan Mr. Zepeda is a 77-year-old male with a history of dementia who was brought to the hospital from his [place] [facility] due to suspected small bowel obstruction on abdominal x-ray. Patient has not been eating or drinking well in the last week or so. He did not have any nausea vomiting recently. On arrival hemodynamically stable. Abdominal CT shows ileus versus small bowel obstruction. Probable small bowel obstruction -We will keep patient on clear liquid diet. Continue normal saline with KCl. -Per 's request, we will give him prune juice (warm). Bowel regimen in place. -No need for surgical consult at this point. Hypokalemia - K+ 3.1. Continue NS + KCL - Repeat BMP in the AM. Alzheimer's dementia Hypotension Hypothyroidism - Continue donepezil 10 mg nightly, levothyroxine 75 mcg every morning, midodrine 5 mg 3 times daily Full code. Lovenox. Physician Certification 2 Midnight Certification Type: Admission for Inpatient Services Order for Inpatient Services The services are ordered in accordance with Medicare regulations or non- Medicare payer requirements, as applicable. In the case of services not specified as inpatient-only, they are appropriately provided as inpatient services in accordance with the 2-midnight benchmark. Estimated LOS (days): 2 days is the estimated time the patient will need to remain in the hospital, assuming treatment plan goals are met and no additional complications. Post-Hospital Plan: Not yet determined Gilberto Mcmillan DO November 19, 2017 11:25 pm
[2017-11-20] VITALS (12 sets, daily range): BP systolic 95–136; BP diastolic 53–73; PULSE 58–71; RESP 16–18; TEMP 97.7–98.6; O2SAT 96–99
[2017-11-20] MEDS: LEVOTHYROXINE SODIUM 75 MCG TAB PO SCH (06:04)
[2017-11-20] MEDS: MIDODRINE 5 MG TAB PO SCH ×3 (06:04→17:00)
[2017-11-20 07:20] LABS: CALCIUM 7.5 MG/DL (8.5-10.1); CREATININE 0.91 MG/DL (0.60-1.30)
[2017-11-20] MEDS ORDERED: METOPROLOL TARTRATE 25 MG TAB PO SCH (09:00)
[2017-11-20] MEDS ORDERED: NON-FORMULARY DRUG (Lactobacillus Rhamnosus (GG) (Culturelle) 1 CAP) PO SCH (09:00)
[2017-11-20] MEDS ORDERED: ASPIRIN EC 81 MG TABEC PO SCH (09:00)
[2017-11-20] MEDS: MULTIVITAMINS/MINERALS THERAPEUTIC TAB PO SCH (09:15)
[2017-11-20] MEDS: CETIRIZINE HCL 10 MG TAB PO SCH (09:15)
[2017-11-20] MEDS: CHOLECALCIFEROL (VIT D3) 1000 UNIT TAB PO SCH (09:15)
[2017-11-20] MEDS: QUEtiapine FUMARATE 25 MG TAB PO SCH ×3 (12:02→20:09)
[2017-11-20] MEDS: ENOXAPARIN SODIUM 40 MG/0.4 ML SYRINGE SQ SCH (12:03)
[2017-11-20] MEDS: SODIUM CHLORIDE 0.9% FLUSH 10 ML FLUSH IV FLUSH SCH ×2 (12:03→20:00)
[2017-11-20] MEDS: NS + KCL 20 MEQ INJ 1,000 ML IV SCH (12:35)
--- NOTE | 2017-11-20 14:35 | EKG ---
Date Performed: 11/20/2017 Time Performed: 04:08:30 PTAGE: 77 years EKG: Baseline artifact obscures underlying rhythm. Nonspecific intraventricular conduction defec t Abnormal ECG DOCTOR: Jered Ro Interpretating Date/Time 11/20/2017 14:35:08
--- NOTE | 2017-11-20 14:51 | RADRPT ---
EXAM DATE: 11/20/2017 2:47 PM EDT AGE/SEX: 77 years / Male INDICATIONS: Obstruction, diarrhea CLINICAL DATA: This is the patient's initial encounter. Patient reports that signs and symptoms have been present for 1 day and indicates a pain score of Nonresponsive. MEDICAL/SURGICAL HISTORY: None. None. COMPARISON: [facility] – [place], CT ABDOMEN & PELVIS W CONTRAST, 11/19/2017. . FINDINGS: Supine and upright views of the abdomen were performed. There are multiple air and fluid-filled loops of small and large bowel which are dilated. On the upright study there are air-fluid levels in the s mall bowel as well as colon suggestive of a diffuse adynamic ileus. Air can be traced all the way rafa n to the rectum. The lung bases are grossly clear. No evidence of free air is seen. No significant change compared to the prior CT abdomen and pelvis. CONCLUSION: There is multiple air-filled and fluid-filled loops of small large bowel which are dilated. There are air-fluid levels in the small bowel and colon suggestive of a diffuse adynamic ileus. Electronically signed by: Luis Cheek MD 11/20/2017 2:50 PM EDT
--- NOTE | 2017-11-20 15:01 | RADRPT ---
EXAM DATE: 11/20/2017 2:52 PM EDT AGE/SEX: 77 years / Male INDICATIONS: Effusion CLINICAL DATA: This is the patient's initial encounter. Patient reports that signs and symptoms have been present for 1 day and indicates a pain score of 0/10. MEDICAL/SURGICAL HISTORY: Hypertension. diabetes, dementia Cholecystectomy. COMPARISON: No prior [facility] exams available for comparison. FINDINGS: The lungs are hypoaerated. Bilateral calcified granulomas are seen. There is blunting along the right posterior costophrenic sulcus characteristic of a small effusion. Lungs are otherwise clear. Heart is normal in size. CONCLUSION: 1. Blunted right costophrenic angle characteristic of a small effusion. 2. Calcified granulomas. 3. No other evidence of acute process. Electronically signed by: Reyes Israel MD 11/20/2017 2:59 PM EDT
--- NOTE | 2017-11-20 15:03 | RADRPT ---
EXAM DATE: 11/20/2017 2:54 PM EDT AGE/SEX: 77 years / Male INDICATIONS: Effusion. CLINICAL DATA: This is the patient's subsequent encounter. Patient reports that signs and symptoms h ave been present for 2 days and indicates a pain score of 0/10. MEDICAL/SURGICAL HISTORY: Hypertension. Dementia, Diabetes. None. COMPARISON: No prior [facility] exams available for comparison. FINDINGS: Bilateral decubitus views of the chest were performed. A free-flowing small right pleural effusion is noted. There is no significant fluid identified in the left. CONCLUSION: Small free-flowing right pleural effusion. Electronically signed by: Reyes Israel MD 11/20/2017 3:01 PM EDT
--- NOTE | 2017-11-20 15:23 | HHI.PR ---
Subjective Remarks awake and alert had 2 good BM huge this am formed no pain telemetry- a fib- patient has baseline dmentia-seen with swife- no known history takes aspirin at home uses a cane Objective Vitals Vital Signs Date Time Temp Pulse Resp B/P (MAP) Pulse Ox O2 Delivery O2 Flow Rate FiO2 11/20/17 12:45 98.6 66 16 109/72 (84) 97 11/20/17 07:35 98.3 62 18 127/73 (91) 97 11/20/17 07:35 97 21 11/20/17 04:16 98.0 63 16 118/62 (80) 96 11/20/17 04:07 60 11/20/17 00:23 98.4 59 18 107/67 (80) 97 11/20/17 00:21 63 11/19/17 23:48 11/19/17 22:49 95 11/19/17 19:55 78 18 110/65 (80) 96 Room Air 11/19/17 17:16 98.8 75 16 118/67 (84) 99 I/O 11/19/17 11/19/17 11/19/17 11/20/17 11/20/17 11/20/17 06:59 14:59 22:59 06:59 14:59 22:59 Intake Total 543 ml Output Total 300 ml Balance 243 ml IV Total 543 ml Output Urine Total 300 ml # Voids 1 # Bowel Movements 2 Result Diagram: 11/19/17 1755 11/20/17 0604 Imaging Last Impressions Chest X-Ray 11/20/17 0000 Signed Impressions: CONCLUSION: Abdomen X-Ray 11/20/17 0000 Signed Impressions: CONCLUSION: Abdomen/Pelvis CT 11/19/17 1915 Signed Impressions: CONCLUSION: Objective Remarks awake andlkalert, oriented x 2 anicteric irregular rhythm abdomenosft, nontender, good bowel sounds lungs- no rales extremies no edema A/P Problem List: (1) Small bowel obstruction ICD Code: K56.609 - Unspecified intestinal obstruction, unspecified as to partial versus complete obstruction (2) Hypokalemia ICD Code: E87.6 - Hypokalemia Status: Resolved Assessment and Plan Mr. Zepeda is a 77-year-old male with a history of dementia who was brought to the hospital from his snf due to suspected small bowel obstruction on abdominal x-ray. Patient has not been eating or drinking well in the last week or so. He did not have any nausea vomiting recently. On arrival hemodynamically stable. Abdominal CT shows ileus versus small bowel obstruction. Probable small bowel obstruction vs Ileus- resolved- good 2 BM today -advance diet -Per 's request, we will give him prune juice (warm). Bowel regimen in place. Hypokalemia- replace with po potassium extra - K+ 3.1. Continue NS + KCL - Repeat BMP in the AM. Alzheimer's dementia Hypotension Hypothyroidism - Continue donepezil 10 mg nightly, levothyroxine 75 mcg every morning, midodrine 5 mg 3 times daily Full code. Lovenox. New onset Atrial fibrillation - Currently rate controlled. - [id number] score would be 2 (Age above 75) - Will initiate Metoprolol with holding parameters - Patient may benefit from anti-coagulation if his agrees, we could consider Apixaban 5mg BID. - Will order TSH. - normal -check echo d/w will keep on ASA PT daily D/w - wiould like to go to SNF choice- [facility] if qualifeid after PT Callie Ellison MD November 20, 2017 15:23
[2017-11-20] MEDS ORDERED: POTASSIUM BICARBONATE 25 MEQ EFFERVESCENT TAB PO ONE (15:45)
[2017-11-20] MEDS ORDERED: POTASSIUM CHLORIDE 10 MEQ CONTROLLED RELEASE TAB PO ONE (17:30)
[2017-11-20] MEDS: DONEPEZIL HCL 5 MG TAB PO SCH (20:09)
[2017-11-20] MEDS ORDERED: POTASSIUM CHLORIDE 10 MEQ CAP PO ONE (21:00)
[2017-11-21] VITALS (12 sets, daily range): BP systolic 93–117; BP diastolic 52–66; PULSE 45–67; RESP 16–18; TEMP 97.5–98.3; O2SAT 96–98
[2017-11-21] MEDS: NS + KCL 20 MEQ INJ 1,000 ML IV SCH ×3 (01:51→23:58)
[2017-11-21] MEDS: MIDODRINE 5 MG TAB PO SCH ×3 (04:59→17:10)
[2017-11-21] MEDS: LEVOTHYROXINE SODIUM 75 MCG TAB PO SCH (04:59)
[2017-11-21 07:45] LABS: BICARBONATE 26.2 MEQ/L (21.0-32.0); CALCIUM 7.7 MG/DL (8.5-10.1); CREATININE 1.02 MG/DL (0.60-1.30)
--- NOTE | 2017-11-21 07:58 | HHI.PR ---
Subjective Remarks patient already up sitting at side of bed- having breakfast feeding himself no pain Objective Vitals Vital Signs Date Time Temp Pulse Resp B/P (MAP) Pulse Ox O2 Delivery O2 Flow Rate FiO2 11/21/17 07:00 51 11/21/17 04:59 98.3 56 16 117/65 (82) 98 11/21/17 03:02 48 11/21/17 00:05 45 11/21/17 00:00 97.9 62 16 98/52 (67) 96 11/20/17 20:04 97.7 58 18 95/53 (67) 98 11/20/17 19:01 66 11/20/17 17:10 97.7 60 18 136/71 (92) 99 11/20/17 16:00 60 11/20/17 12:45 98.6 66 16 109/72 (84) 97 11/20/17 12:00 71 11/20/17 08:00 58 I/O 11/20/17 11/20/17 11/20/17 11/21/17 11/21/17 11/21/17 07:00 15:00 23:00 07:00 15:00 23:00 Intake Total 543 ml Output Total 300 ml 250 ml Balance 243 ml -250 ml IV Total 543 ml Output Urine Total 300 ml 250 ml # Voids 1 # Bowel Movements 2 1 Result Diagram: 11/19/17 1755 11/21/17 0645 Imaging Last Impressions Chest X-Ray 11/20/17 0000 Signed Impressions: CONCLUSION: Small free-flowing right pleural effusion. Abdomen X-Ray 11/20/17 0000 Signed Impressions: CONCLUSION: There is multiple air-filled and fluid-filled loops of small large bowel which are dilated. There are air-fluid levels in the small bowel and colon suggestive of a diffuse adynamic ileus. Abdomen/Pelvis CT 11/19/17 1915 Signed Impressions: CONCLUSION: 1. Distended loops of stomach and proximal small bowel with air-fluid levels. Differential considerations include ileus and small bowel obstruction. 2. Moderate size right pleural effusion. Objective Remarks awake and alert, oriented x 2, speech clear, no distress anicteric regular rhythm abdomen - sofft, nontender, good bowel sounds lungs- no rales extremies no edema A/P Problem List: (1) Small bowel obstruction ICD Code: K56.609 - Unspecified intestinal obstruction, unspecified as to partial versus complete obstruction (2) Hypokalemia ICD Code: E87.6 - Hypokalemia Status: Resolved Assessment and Plan Mr. Zepeda is a 77-year-old male with a history of dementia who was brought [facility] from his [facility] due to suspected small bowel obstruction on abdominal x-ray. Patient has not been eating or drinking well in the last week or so. He did not have any nausea vomiting recently. On arrival hemodynamically stable. Abdominal CT shows ileus versus small bowel obstruction. Probable small bowel obstruction vs Ileus- resolved- -advance diet -Per 's request, we will give him prune juice (warm). Bowel regimen in place. Hypokalemia- corrected Alzheimer's dementia Hypotension Hypothyroidism - Continue donepezil 10 mg nightly, levothyroxine 75 mcg every morning, midodrine 5 mg 3 times daily Full code. Lovenox. New onset Atrial fibrillation- now on telemetry- sinus Arrhythmia - Currently rate controlled. - [id number] score would be 2 (Age above 75) - Patient may benefit from anti-coagulation if his agrees, we could consider Apixaban 5mg BID. - Will order TSH. - normal d/w will keep on ASA PT daily D/w - wiould like to go to SNF choice- [facility] tomorrow- needs 3 midnight stay Callie Lion MD November 21, 2017 07:58
[2017-11-21] MEDS: SODIUM CHLORIDE 0.9% FLUSH 10 ML FLUSH IV FLUSH SCH ×2 (08:26→20:12)
[2017-11-21] MEDS: QUEtiapine FUMARATE 25 MG TAB PO SCH ×2 (08:26→20:11)
[2017-11-21] MEDS: ASPIRIN 81 MG CHEW TAB CHEW SCH (08:26)
[2017-11-21] MEDS: MULTIVITAMINS/MINERALS THERAPEUTIC TAB PO SCH (08:26)
[2017-11-21] MEDS: ENOXAPARIN SODIUM 40 MG/0.4 ML SYRINGE SQ SCH (08:26)
[2017-11-21] MEDS: CHOLECALCIFEROL (VIT D3) 1000 UNIT TAB PO SCH (08:26)
[2017-11-21] MEDS: CETIRIZINE HCL 10 MG TAB PO SCH (08:26)
[2017-11-21] MEDS: POTASSIUM CHLORIDE 10 MEQ CONTROLLED RELEASE TAB PO SCH (12:21)
[2017-11-21] MEDS: DONEPEZIL HCL 5 MG TAB PO SCH (20:11)
[2017-11-22] VITALS (7 sets, daily range): BP systolic 101–138; BP diastolic 52–81; PULSE 56–95; RESP 16–18; TEMP 97.7–98.7; O2SAT 94–97
[2017-11-22] MEDS: LEVOTHYROXINE SODIUM 75 MCG TAB PO SCH (03:51)
[2017-11-22] MEDS: MIDODRINE 5 MG TAB PO SCH ×2 (06:14→12:04)
--- NOTE | 2017-11-22 07:26 | HHI.PR ---
Subjective Remarks awake and alert, denies any abdominal pain, no nausea or vomiting speech clear oriented x 3 wondering when food is coming Objective Vitals Vital Signs Date Time Temp Pulse Resp B/P (MAP) Pulse Ox O2 Delivery O2 Flow Rate FiO2 11/22/17 04:00 98.0 65 17 129/76 (93) 96 11/22/17 04:00 56 11/22/17 00:00 97.8 61 18 113/67 (82) 95 11/22/17 00:00 59 11/21/17 20:04 98 11/21/17 20:00 53 11/21/17 20:00 97.9 67 16 110/66 (81) 96 11/21/17 15:24 98.2 55 18 93/62 (72) 98 11/21/17 15:00 59 11/21/17 12:12 98.2 50 18 95/56 (69) 96 11/21/17 11:00 55 11/21/17 08:19 97.5 51 18 102/58 (73) 98 I/O 11/21/17 11/21/17 11/21/17 11/22/17 11/22/17 11/22/17 07:00 15:00 23:00 07:00 15:00 23:00 Intake Total 1000 ml 1560 ml Output Total 250 ml 450 ml 350 ml Balance -250 ml 1000 ml 1110 ml -350 ml Intake Oral 1560 ml IV Total 1000 ml Output Urine Total 250 ml 450 ml 350 ml # Bowel Movements 1 Result Diagram: 11/19/17 1755 11/21/17 0645 Imaging Last Impressions Chest X-Ray 11/20/17 0000 Signed Impressions: CONCLUSION: Small free-flowing right pleural effusion. Abdomen X-Ray 11/20/17 0000 Signed Impressions: CONCLUSION: There is multiple air-filled and fluid-filled loops of small large bowel which are dilated. There are air-fluid levels in the small bowel and colon suggestive of a diffuse adynamic ileus. Abdomen/Pelvis CT 11/19/17 1915 Signed Impressions: CONCLUSION: 1. Distended loops of stomach and proximal small bowel with air-fluid levels. Differential considerations include ileus and small bowel obstruction. 2. Moderate size right pleural effusion. Objective Remarks awake and alert, oriented x 2, speech clear, no distress anicteric irregular rhythm abdomen - soft, nontender, good bowel sounds lungs- no rales extremities no edema. no calf swelling or tenderness no motor deficits A/P Problem List: (1) Small bowel obstruction ICD Code: K56.609 - Unspecified intestinal obstruction, unspecified as to partial versus complete obstruction (2) Hypokalemia ICD Code: E87.6 - Hypokalemia Status: Resolved Assessment and Plan Mr. Zepeda is a 77-year-old male with a history of dementia who was brought to the hospital from his long-term due to suspected small bowel obstruction on abdominal x-ray. Patient has not been eating or drinking well in the last week or so. He did not have any nausea vomiting recently. On arrival hemodynamically stable. Abdominal CT shows ileus versus small bowel obstruction. Probable small bowel obstruction vs Ileus- resolved- -advance diet -Per 's request, we will give him prune juice (warm). Bowel regimen in place. Hypokalemia- corrected Alzheimer's dementia Hypotension- resolved Hypothyroidism - Continue donepezil 10 mg nightly, levothyroxine 75 mcg every morning, midodrine 5 mg 3 times daily Full code. Lovenox. New onset Atrial fibrillation- - Currently rate controlled. - [id number] score would be 2 (Age above 75) TSH. - normal will keep on ASA PT daily D/w - would like to go to SNF choice- [facility]- today if arranged Callie Lion MD November 22, 2017 07:26
[2017-11-22] MEDS ORDERED: KLOR10TA PO (07:31)
[2017-11-22] MEDS: MULTIVITAMINS/MINERALS THERAPEUTIC TAB PO SCH (08:13)
[2017-11-22] MEDS: CETIRIZINE HCL 10 MG TAB PO SCH (08:13)
[2017-11-22] MEDS: QUEtiapine FUMARATE 25 MG TAB PO SCH (08:14)
[2017-11-22] MEDS: CHOLECALCIFEROL (VIT D3) 1000 UNIT TAB PO SCH (08:14)
[2017-11-22] MEDS: ASPIRIN 81 MG CHEW TAB CHEW SCH (08:14)
[2017-11-22] MEDS: POTASSIUM CHLORIDE 10 MEQ CONTROLLED RELEASE TAB PO SCH (08:14)
[2017-11-22] MEDS: ENOXAPARIN SODIUM 40 MG/0.4 ML SYRINGE SQ SCH (08:15)
[2017-11-22] MEDS: SODIUM CHLORIDE 0.9% FLUSH 10 ML FLUSH IV FLUSH SCH (08:15)
--- NOTE | 2017-11-22 21:12 | HHI.DS ---
Discharge Summary Admission Date November 19, 2017 at 22:45 Discharge Date: November 22, 2017 Admitting Diagnosis Ileus versus partial SBO (1) Small bowel obstruction ICD Code: K56.609 - Unspecified intestinal obstruction, unspecified as to partial versus complete obstruction (2) Hypokalemia ICD Code: E87.6 - Hypokalemia Status: Resolved Brief History - From Admission Mr. Zepeda is a 77-year-old male with a history of dementia who was brought to the hospital from his long-term due to abnormal abdominal x-ray suspicious for obstruction. Patient has not been eating or drinking well for the last 1 week. He also had nausea vomiting 2 weeks ago but no recent nausea vomiting. At the time of this interview, patient denies any chest pain, shortness of breath, abdominal pain, fever or chills. Patient reports that his last bowel movement was 3-4 days ago. However this is unreliable according to his . Upon arrival, patient's vitals with normal range. CT abdomen pelvis indicated possibility of ileus and small bowel obstruction. CT scan also shows moderate sized pleural effusion on the right. CBC/BMP: 11/19/17 1755 11/21/17 0645 Significant Findings Laboratory Tests Test 11/20/17 06:04 11/21/17 06:45 Calcium Level 7.5 MG/DL (8.5-10.1) 7.7 MG/DL (8.5-10.1) Potassium Level 3.2 MEQ/L (3.5-5.1) Estimat Glomerular Filtration Rate 81 ML/MIN (>89) 71 ML/MIN (>89) Chloride Level 110 MEQ/L (98-107) Imaging Last Impressions Chest X-Ray 11/20/17 0000 Signed Impressions: CONCLUSION: Small free-flowing right pleural effusion. Abdomen X-Ray 11/20/17 0000 Signed Impressions: CONCLUSION: There is multiple air-filled and fluid-filled loops of small large bowel which are dilated. There are air-fluid levels in the small bowel and colon suggestive of a diffuse adynamic ileus. Abdomen/Pelvis CT 5/22/18 1915 Signed Impressions: CONCLUSION: 1. Distended loops of stomach and proximal small bowel with air-fluid levels. Differential considerations include ileus and small bowel obstruction. 2. Moderate size right pleural effusion. PE at Discharge awake and alert, oriented x 2, speech clear, no distress anicteric irregular rhythm abdomen - soft, nontender, good bowel sounds lungs- no rales extremities no edema. no calf swelling or tenderness no motor deficits Pt update on day of discharge tolerating po, no pain Pt Condition on Discharge: Stable Discharge Disposition: Discharge to SNF Discharge Time: > 30 minutes Discharge Instructions DIET: Follow Instructions for: As Tolerated, No Restrictions Speech Therapy-Diet Recommends: Regular Activities you can perform: Weight Bearing as Prakash Follow up Referrals: PCP Follow-up - 11/25/17 with ivan New Orders: BASIC METABOLIC PROF - 11/24/17 New Medications: Potassium Chloride ER (Klor-Con 10) 10 Meq Tab 10 MEQ PO DAILY for hypokalkemia for 3 Days, #3 TAB Continued Medications: Aspirin DR (Aspirin 81) 81 Mg Tabdr 81 MG PO DAILY for health, #30 TAB 0 Refills Cetirizine (Cetirizine) 10 Mg Tab 10 MG PO DAILY for Allergies, #30 TAB 0 Refills Cholecalciferol (D3 Maximum Strength) 5,000 Unit Cap 2000 UNITS PO DAILY for Nutritional Supplement, #30 CAP 0 Refills Cyanocobalamin (B12) 1,000 Mcg Tab Donepezil (Donepezil) 10 Mg Tab 10 MG PO HS for Dementia, #30 TAB 0 Refills Glucosamine-Chondroitin (Glucosamine-Chondroitin) 500-400 Mg Tab 1 TAB PO DAILY for Herbal Supplements, TAB 0 Refills Levothyroxine (Synthroid) 75 Mcg Tab 75 MCG PO DAILY@0600 for health, #30 TAB 0 Refills Midodrine (Midodrine) 5 Mg Tab 5 MG PO TID@07,12,17 for Blood Pressure Management, #90 TAB 3 Refills Multiple Vitamins W/ Minerals (Centrum) 1 Chew 1 TAB CHEW DAILY for Nutritional Supplement, TAB 0 Refills Quetiapine (Seroquel) 25 Mg Tab 25 MG PO TID for health, #90 TAB 0 Refills Callie Lion MD November 22, 2017 21:12
== END 2017-11-22 13:10 | DRG 390 ==
LOC: NEPE 16:57 → NEDA 22:45 → HCIN 11-20 00:10
PROVIDERS: ADMIT Internal Medicine; ATTEND Internal Medicine
DX: K56.600 Partial intestinal obstruction, unspecified as to cause (principal); I95.9 Hypotension, unspecified; G30.9 Alzheimer's disease, unspecified; I48.91 Unspecified atrial fibrillation; F02.80 Dementia in other diseases classified elsewhere, unspecified severity, without behavioral disturbance, psychotic disturbance, mood disturbance, and anxiety; Z79.82 Long term (current) use of aspirin; E87.6 Hypokalemia; E03.9 Hypothyroidism, unspecified
CPT/HCPCS: 71046; 74019; 74177; 80048; 80053; 83605; 83690; 84443; 85007; 85027; 93005; 96361; 96365; J1650; J3480; J7030; Q9963; Q9967